=== PATIENT | male | born 1945 | race Caucasian/White ===

== ENCOUNTER 2022-11-12 15:30 | Inpatient (IN) ==
--- NOTE | 2022-11-12 16:12 | Emergency Department Note ---
Impression & Plan Edema of both lower legs, Acute renal insufficiency, Acute hyperkalemia ED Provider Note Name: SHALONDA CALDERON Age: 77 Sex: M Arrives Via: Walk-In Informant: Patient, son ED Provider: Fernando Swann MD Chief Complaint: Leg swelling Impression: As per impressions above Medical Decision Makin-year-old male with history of dyslipidemia, BPH, anxiety/depression though no significant CHF or other history per patient or son. Patient with rapidly worsening leg swelling over the last week. He has pitting weeping edema bilateral lower legs. He is not significantly short of breath denies any chest pain has not had any syncope but is getting short of breath with exertion. Chest x-ray is without infiltrate or significant effusion/pleural effusions. EKG is unremarkable without peaked T waves. He does have a elevated potassium on lab draw in the setting of acute renal insufficiency. Without having significant EKG changes suspect that starting him on Lasix will probably start dropping the potassium while hospitalist further work this up. I do feel that L asix are indicated despite renal insufficiency. He does have a low albumin and this may need to be corrected as well however the initial approach should be getting fluid off. Discussed with hospitalist and they are board with plan. Patient is troponin is only slightly above normal this is consistent with his acute renal insufficiency and without chest pain or EKG abnormalities I do not think this is consistent with ACS Prior Medical Record and Triage/Nursing Notes reviewed by Me External chart review by me Differentials:Fluid overload, DVT, arterial pathology, maln utrition/hypoalbuminemia, anemia, renal failure amongst many other pathologies considered Vital Signs: reviewed and remarkable for mild tachycardia on arrival Interventions: Lasix 40 mg IV Labs:Reviewed and remarkable for evaded potassium, elevated creatinine, low albumin, only slightly elevated troponin Imagin view chest x-ray as per my interpretation no infiltrate, effusion, congestive failure appreciated EKG:As per my interpretation. Indication weakness. Normal sinus rhythm 85 bpm QTc of 433. There is no ectopy nor ischemia. When compared to an EKG of March 09, 2020 there is no significant change. There are no peak T waves Cardiac/Tele Monitoring: Cardiac Monitoring: An Order was placed for continuous cardiac monitoring. The monitor shows a rate of 80 with a normal sinus rhythm. Consults:Italo hodgesist service Plan: Disposition:Hospitalization. Condition: Fair History of Present Illness:77-year-old male arrives for evaluation of worsening leg swelling. Patient with about 5 days of rapid development of bilateral lower leg swelling and weeping out of the right leg. Associated with mild shortness of breath which gets much worse on exertion. Patient is more tired than usual. No current chest pain, nausea, vomiting, abdominal pain, back pain, urinary/bowel symptoms or other concerning signs or symptoms. No history of fluid overload or any history of cardiac disease. Does have a history of simvastatin use for hyperlipidemia as well as daily aspirin. Past History:Dyslipidemia, anxiety/depression, BPH Home Medications:See Below Allergies:No known drug allergies Vitals:Blood Pressure: 115/75, Pulse 107, RR 18, T 36.6C, O2 99% on RA Physical Exam: GENERAL: Patient is tired appearing and in minimal distress. Elderly EYES: No scleral icterus, unremarkable pupils. RESPIRATORY: Mild diffuse crackles mild dyspnea noted CARDIOVASCULAR: Mildly tachycardic.No murmurs, rubs, gallops appreciated. GASTROINTESTINAL: Abdomen soft, non-tender, no peritonitis.Bowel sounds positive.No masses appreciated. BACK: No midline tenderness, no CVA tenderness EXTREMITIES: Normal motion all extremities, no cyanosis. Bilateral lower leg 4+ pitting edema right greater than left from knee down. Significant amount of weeping out of the right leg. Mild erythema NEUROLOGIC: Alert and oriented, very hard of hearing, no gross focal neurologic deficit appreciated SKIN: No rash, no jaundice, no diaphoresis. PSYCH: Appropriate GCS: 15 ED Course: Times/Reassessments: Patient is comfortable with plan for hospitalization as his family Fernando Swann MD Past Med/Surg History Medical History BPH (benign prostatic hyperplasia) CKD (chronic kidney disease), stage III Depression GERD (gastroesophageal reflux disease) HLD (hyperlipidemia) Surgical History Status post hip surgery Family History Other Cancer Social History Smoking Status: Former smoker Tobacco Type: Cigarettes Preferred Language: Occitan Feels Safe at Home: Yes Allergies Allergies Allergy/AdvReac Type Severity Reaction Status Date / Time No Known Allergies Allergy Unverified 11/12/22 18:14 Home Meds Home Medications Medication Instructions Recorded Confirmed aspirin 81 mg tablet,delayed 81 mg PO QAM 03/09/20 11/12/22 release (Paulo Low Dose Aspirin) citalopram 20 mg tablet 20 mg PO QPM 03/09/20 11/12/22 simvastatin 20 mg tablet 20 mg PO QPM 03/09/20 11/12/22 finasteride 5 mg tablet 5 mg PO QPM 11/12/22 11/12/22 fluticasone propionate 110 2 puff inhalation BID PRN as 11/12/22 11/12/22 mcg/actuation HFA aerosol inhaler directed (Flovent HFA) garlic 1,000 mg capsule 1,000 mg PO QAM 11/12/22 11/12/22 meloxicam 7.5 mg tablet 7.5 mg PO HS 11/12/22 11/12/22 pantoprazole 40 mg tablet,delayed 40 mg PO DAILY 11/12/22 11/12/22 release tamsulosin 0.4 mg capsule 0.4 mg PO HS 11/12/22 11/12/22 Results & Data (ED) Vital Signs Vital Signs - 24 hr 11/12/22 15:34 11/12/22 16:13 11/12/22 16:17 Temperature 36.6 C Temperature Source Oral Pulse Rate 107 H 62 87 Pulse Rate [Apical] Respiratory Rate 18 18 Respiratory Effort / Characteristics Non-Labored Spontaneous Respiratory Depth Normal Respiratory Pattern Regular Blood Pressure 115/75 109/73 Blood Pressure [Right Arm] Blood Pressure Mean 88 85 Blood Pressure Mean [Right Arm] Blood Pressure Position Sitting Pulse Oximetry 99 99 Oxygen Delivery Method Room Air Room Air Sepsis Recent Fever Within 48 Hours No Sepsis New/Unexplained Change in Mental Status N/A Sepsis Action Taken by Nursing No Action Required 11/12/22 18:15 Temperature Temperature Source Pulse Rate Pulse Rate [Apical] 96 H Respiratory Rate 18 Respiratory Effort / Characteristics Respiratory Depth Respiratory Pattern Blood Pressure Blood Pressure [Right Arm] 147/80 H Blood Pressure Mean Blood Pressure Mean [Right Arm] 102 Blood Pressure Position Pulse Oximetry 97 Oxygen Delivery Method Room Air Sepsis Recent Fever Within 48 Hours Sepsis New/Unexplained Change in Mental Status Sepsis Action Taken by Nursing Laboratory Data 11/12/22 16:15 11/12/22 16:15 Lab Results 11/12/22 11/12/22 11/12/22 Range/Units 16:00 16:15 16:15 WBC 14.36 H (4.8-10.8) K/ul RBC 4.68 L (4.70-6.10) M/uL Hgb 13.6 L (14.0-18.0) g/dl Hct 40.8 L (42.0-52.0) % MCV 87.2 (80.0-100.0) fL MCH 29.1 (25.0-34.0) pg MCHC 33.3 (32.0-36.0) g/dL RDW Std Deviation 47.4 H (36.4-46.3) fL RDW Coeff of Julius 15.0 H (11.5-14.5) % Plt Count 320 (130-400) K/uL MPV 10.5 (9.4-12.4) fL Immature Gran % (Auto) 0.5 % Neut % (Auto) 90.1 % Lymph % (Auto) 3.2 % [place] % (Auto) 6.1 % Eos % (Auto) 0.0 % Baso % (Auto) 0.1 % Neut # (Auto) 12.94 H (1.40-6.50) K/uL Lymph # (Auto) 0.46 L (1.2-3.4) K/uL [place] # (Auto) 0.88 H (0.11-0.59) K/uL Eos # (Auto) 0.00 (0-0.50) K/uL Baso # (Auto) 0.01 (0-0.2) K/uL Immature Gran # (Auto) 0.07 (0.01-0.20) K/uL Sodium 137 (136-145) mmol/L Potassium 5.8 H (3.5-5.1) mmol/L Chloride 108 H (98-107) mmol/L Carbon Dioxide 24 (21-32) mmol/L Anion Gap 5 (3-11) BUN 42 H (6-23) mg/dl Creatinine 1.95 H (0.6-1.4) mg/dl Est Cr Clr Drug Dosing 32.2 ml/min Est GFR ( Amer) 37.6 ml/min Est GFR (Non-Af Amer) 32.5 ml/min BUN/Creatinine Ratio 21.5 H (10-20) Glucose 108 H (70-99(Fasting)) mg/dl Calcium 9.4 (8.6-10.3) mg/dl Magnesium 2.3 (1.7-2.4) mg/dl Total Bilirubin 0.8 (0.2-1.0) mg/dl Direct Bilirubin 0.0 (0-0.2) mg/dl AST 17 (13-39) U/L ALT 12 (7-52) U/L Alkaline Phosphatase 121 H (34-104) U/L Troponin I High Sens 21.4 H (0-20) pg/ml B-Natriuretic Peptide (0-100) pg/ml Total Protein 6.1 (6.0-8.3) gm/dl Albumin 2.4 L (3.4-5.0) gm/dl Urine Color Urine Appearance (Clear) Urine pH (4.5-7.5) Ur Specific [place] (1.000-1.030) Urine Protein (Negative) Urine Glucose (UA) (Negative) Urine Ketones (Negative) Urine Blood (Negative) Urine Nitrite (Negative) Urine Bilirubin (Negative) Urine Urobilinogen (Negative) Ur Leukocyte Esterase (Negative) SARS-CoV-2 (PCR) NEGATIVE (Negative) Influenza Type A (PCR) Negative (Neg) Influenza Type B (PCR) Negative (Neg) RSV (RT-PCR) Negative (Neg) 11/12/22 11/12/22 Range/Units 16:15 18:39 WBC (4.8-10.8) K/ul RBC (4.70-6.10) M/uL Hgb (14.0-18.0) g/dl Hct (42.0-52.0) % MCV (80.0-100.0) fL MCH (25.0-34.0) pg MCHC (32.0-36.0) g/dL RDW Std Deviation (36.4-46.3) fL RDW Coeff of Julius (11.5-14.5) % Plt Count (130-400) K/uL MPV (9.4-12.4) fL Immature Gran % (Auto) % Neut % (Auto) % Lymph % (Auto) % [place] % (Auto) % Eos % (Auto) % Baso % (Auto) % Neut # (Auto) (1.40-6.50) K/uL Lymph # (Auto) (1.2-3.4) K/uL [place] # (Auto) (0.11-0.59) K/uL Eos # (Auto) (0-0.50) K/uL Baso # (Auto) (0-0.2) K/uL Immature Gran # (Auto) (0.01-0.20) K/uL Sodium (136-145) mmol/L Potassium (3.5-5.1) mmol/L Chloride (98-107) mmol/L Carbon Dioxide (21-32) mmol/L Anion Gap (3-11) BUN (6-23) mg/dl Creatinine (0.6-1.4) mg/dl Est Cr Clr Drug Dosing ml/min Est GFR ( Amer) ml/min Est GFR (Non-Af Amer) ml/min BUN/Creatinine Ratio (10-20) Glucose (70-99(Fasting)) mg/dl Calcium (8.6-10.3) mg/dl Magnesium (1.7-2.4) mg/dl Total Bilirubin (0.2-1.0) mg/dl Direct Bilirubin (0-0.2) mg/dl AST (13-39) U/L ALT (7-52) U/L Alkaline Phosphatase (34-104) U/L Troponin I High Sens (0-20) pg/ml B-Natriuretic Peptide 69 (0-100) pg/ml Total Protein (6.0-8.3) gm/dl Albumin (3.4-5.0) gm/dl Urine Color Dark Yellow Urine Appearance Turbid A (Clear) Urine pH 5.5 (4.5-7.5) Ur Specific [place] 1.026 (1.000-1.030) Urine Protein 4+ H (Negative) Urine Glucose (UA) Negative (Negative) Urine Ketones Trace H (Negative) Urine Blood 1+ H (Negative) Urine Nitrite Negative (Negative) Urine Bilirubin Negative (Negative) Urine Urobilinogen Negative (Negative) Ur Leukocyte Esterase 2+ H (Negative) SARS-CoV-2 (PCR) (Negative) Influenza Type A (PCR) (Neg) Influenza Type B (PCR) (Neg) RSV (RT-PCR) (Neg) Administered Medications Discontinued Medications Furosemide (Furosemide 40 Mg/4 Ml Vial) 40 mg IV ONE ONE Stop: 11/12/22 17:49 Last Admin: 11/12/22 18:18 Dose: 40 mg Documented By: DESTIN Imaging Data Radiologist's Impression: Chest X-Ray 11/12/22 15:53 XR chest 1V portable CLINICAL HISTORY: shortness of breath TECHNIQUE: Single frontal radiograph of the chest was obtained. Comparison: Comparison is made to chest radiograph 11/03/2022 FINDINGS: No lines and tubes are seen. Cardiomegaly is noted. The lungs are clear. No evidence of pleural effusion or pneumothorax. IMPRESSION: Previously noted left lower lung airspace opacity is no longer seen. ACT 112: Negative or not required by law. Electronically signed by: Darek Gray M.D. 11/12/2022 4:44 PM Discharge Plan Visit Data Chief Complaint: Leg Weakness, Bilateral Stated Complaint: LEGS/FEET SWOLLEN, NO STRENGTH IN LEGS ED Provider: Fernando Swann Discharge Problem: Edema of both lower legs, Acute renal insufficiency, Acute hyperkalemia Forms Stand Alone Forms: [facility] Prescriptions Prescriptions: No Action aspirin [Paulo Low Dose Aspirin] 81 mg Tablet,Delayed Release (Dr/Ec) 81 mg PO QAM citalopram 20 mg tablet 20 mg PO QPM simvastatin 20 mg tablet 20 mg PO QPM meloxicam 7.5 mg tablet 7.5 mg PO HS tamsulosin 0.4 mg capsule 0.4 mg PO HS finasteride 5 mg tablet 5 mg PO QPM pantoprazole 40 mg tablet,delayed release (DR/EC) 40 mg PO DAILY fluticasone propionate [Flovent HFA] 110 mcg/actuation HFA aerosol inhaler 2 puff INHALATION BID PRN (Reason: as directed) garlic 1,000 mg Capsule 1,000 mg PO QAM Referrals Referrals: Chani Burrell M.D. [Primary Care Provider] -
--- NOTE | 2022-11-12 16:46 | XRay Report ---
XR chest 1V portable CLINICAL HISTORY: shortness of breath TECHNIQUE: Single frontal radiograph of the chest was obtained. Comparison: Comparison is made to chest radiograph 11/03/2022 FINDINGS: No lines and tubes are seen. Cardiomegaly is noted. The lungs are clear. No evidence of pleural effus ion or pneumothorax. IMPRESSION: Previously noted left lower lung airspace opacity is no longer seen. ACT 112: Negative or not required by law. Electronically signed by: Darek Gray M.D. 11/12/2022 4:44 PM
[2022-11-12 16:51] LABS: Hematocrit (blood only) 40.8 % (42.0-52.0); Hemoglobin 13.6 g/dl (14.0-18.0); Mean Corpuscular Hemoglobin 29.1 pg (25.0-34.0); Mean Corpuscular Hgb Conc 33.3 g/dL (32.0-36.0); Mean Corpuscular Volume 87.2 fL (80.0-100.0); Mean Platelet Volume 10.5 fL (9.4-12.4); Platelet Count 320 K/uL (130-400); RDW Standard Deviation 47.4 fL (36.4-46.3); Red Blood Count 4.68 M/uL (4.70-6.10); White Blood Count 14.36 K/ul (4.8-10.8)
[2022-11-12 16:53] LABS: Influenza A virus by PCR Negative (Neg); Influenza B virus by PCR Negative (Neg); RSV by PCR Negative (Neg); SARS CoV2 RNA(COVID-19) Ceph NEGATIVE (Negative)
[2022-11-12 16:58] LABS: Albumin Level 2.4 gm/dl (3.4-5.0); BUN Creatinine Ratio 21.5 (10-20); Bilirubin,Total 0.8 mg/dl (0.2-1.0); Calcium 9.4 mg/dl (8.6-10.3); Creatinine Clr Calc Pharmacy 32.2 ml/min; Est GFR (African American) 37.6 ml/min; Est GFR (Non-African American) 32.5 ml/min; Magnesium 2.3 mg/dl (1.7-2.4); Potassium 5.8 mmol/L (3.5-5.1); Total Protein 6.1 gm/dl (6.0-8.3)
[2022-11-12 17:04] LABS: Troponin I High Sensitivity 21.4 pg/ml (0-20)
[2022-11-12 17:17] LABS: Basophils # (auto) 0.01 K/uL (0-0.2); Basophils % (auto) 0.1 %; Immature Granulocytes # (auto) 0.07 K/uL (0.01-0.20); Immature Granulocytes % (auto) 0.5 %; Lymphocytes # (auto) 0.46 K/uL (1.2-3.4); Lymphocytes % (auto) 3.2 %; Monocytes # (auto) 0.88 K/uL (0.11-0.59); Monocytes % (auto) 6.1 %; Neutrophils # (auto) 12.94 K/uL (1.40-6.50); Neutrophils % (auto) 90.1 %
[2022-11-12] MEDS ORDERED: FUROSEMIDE 40 MG/4 ML VIAL IV ONE (17:48)
--- NOTE | 2022-11-12 18:59 | History & Physical Report ---
Date of Service November 12, 2022 Assessment & Plan (1) Leg edema: (2) Ambulatory dysfunction: (3) Cellulitis of right leg: (4) IHSAN (acute kidney injury): (5) Elevated troponin: (6) CKD (chronic kidney disease), stage III: (7) BPH (benign prostatic hyperplasia): (8) HLD (hyperlipidemia): (9) Depression: Plan B/L severe LE pitting edema with ambulatory dysfunction: -pt is s/p Lasix 40mg IV in the ER - will determine the next dose depending on the response and change in Cr - CXR: No lines and tubes are seen. Cardiomegaly is noted. The lungs are clear. No evidence of pleural effusion or pneumothorax -will get b/l Doppler -due to cardiomegaly will obtain echo -PT/OT - low albumin: pt denied any chronic ETOH use ---- will repeat CMP RLE cellulitis: -very small amount of erythema with warmth to touch -started the pt on ceftriaxone Elevated trop: -denied any CP -normal BNP -EKG: NSR, no st changes -will trend trop, admit tele ---- with severe LE edema and cardiomegaly will get cardiology consult IHSAN on CKD III: -baseline Cr: ~1.2 -trend BMP -hold home meloxicam dose BPH/Depression/HLD: -continue home meds Diet:Cardiac DVT PPx:Heparin Code Status:FULL CODE Emergency Contact:Son in -Ej [phone] History of Present Illness Chief Complaint: Leg swelling Primary Care Provider: Chani Burrell Pt is a 77 y/o M with hx of BPH, HLD, GERD, Depression, DJD, hearing loss came to the ER with worsening leg swelling with ambulatory dysfunction. Per pt and family leg swelling has been worsening for few weeks and with leg swelling pt is having difficulty with ambulation. Denied any fever, hx of DVT, orthopnea, CP, SOB. Denied any prior hx of CHF and currently does not take any diuretics. Allergies Allergy/AdvReac Type Severity Reaction Status Date / Time No Known Allergies Allergy Unverified 11/12/22 18:14 Home Medications Medication Instructions Recorded Confirmed Type aspirin 81 mg tablet,delayed 81 mg PO QAM 03/09/20 11/12/22 History release (Paulo Low Dose Aspirin) citalopram 20 mg tablet 20 mg PO QPM 07/27/20 04/01/23 History simvastatin 20 mg tablet 20 mg PO QPM 03/09/20 11/12/22 History finasteride 5 mg tablet 5 mg PO QPM 11/12/22 11/12/22 History fluticasone propionate 110 2 puff inhalation BID PRN as 11/12/22 11/12/22 History mcg/actuation HFA aerosol inhaler directed (Flovent HFA) garlic 1,000 mg capsule 1,000 mg PO QAM 11/12/22 11/12/22 History meloxicam 7.5 mg tablet 7.5 mg PO HS 11/12/22 11/12/22 History pantoprazole 40 mg tablet,delayed 40 mg PO DAILY 11/12/22 11/12/22 History release tamsulosin 0.4 mg capsule 0.4 mg PO HS 11/12/22 11/12/22 History Past Med/Surg History Medical History BPH (benign prostatic hyperplasia) CKD (chronic kidney disease), stage III Depression GERD (gastroesophageal reflux disease) HLD (hyperlipidemia) Surgical History Status post hip surgery Family History Other Cancer Social History Smoking Status: Former smoker Tobacco Type: Cigarettes Preferred Language: Danish Feels Safe at Home: Yes Review of Systems Review of Systems: At least 10 Review of systems were reviewed and all negative except as indicated in HPI Physical Exam Physical Exam: General:. NAD, well developed, well nourished, average body habitus HEENT:. Normocephalic and atraumatic, Normal Conjunctiva, EOMI, Sclera is non- icteric Lungs:. No signs of respiratory distress, CTA, no wheezing or crackles Heart:. Normal S1, S2, no murmur Abdominal:. ND, Soft, NT MSK:severe b/l LE pitting edema, RLE: presence of blisters with small area of erythema which was warmth to touch Psych:. AAOx3, normal affect Results & Data Results & Data Vital Signs (Past 12 Hours) Vital Signs Temp Pulse Pulse Resp BP BP Pulse Ox 11/12/22 18:15 96 H 18 147/80 H 97 11/12/22 16:17 87 11/12/22 16:13 62 18 109/73 99 11/12/22 15:34 36.6 C 107 H 18 115/75 99 O2 Del Method 11/12/22 18:15 Room Air 11/12/22 16:17 11/12/22 16:13 Room Air 11/12/22 15:34 Room Air Laboratory Results Short CBC 11/12/22 Range/Units 16:15 WBC 14.36 H (4.8-10.8) K/ul Hgb 13.6 L (14.0-18.0) g/dl Hct 40.8 L (42.0-52.0) % Plt Count 320 (130-400) K/uL BMP 11/12/22 16:15 Sodium 137 Potassium 5.8 H Chloride 108 H Carbon Dioxide 24 BUN 42 H Creatinine 1.95 H Glucose 108 H Calcium 9.4 Liver Function 11/12/22 Range/Units 16:15 Total Bilirubin 0.8 (0.2-1.0) mg/dl Direct Bilirubin 0.0 (0-0.2) mg/dl AST 17 (13-39) U/L ALT 12 (7-52) U/L Alkaline Phosphatase 121 H (34-104) U/L Albumin 2.4 L (3.4-5.0) gm/dl Diagnostic Findings Chest X-Ray 11/12/22 15:53 XR chest 1V portable CLINICAL HISTORY: shortness of breath TECHNIQUE: Single frontal radiograph of the chest was obtained. Comparison: Comparison is made to chest radiograph 11/03/2022 FINDINGS: No lines and tubes are seen. Cardiomegaly is noted. The lungs are clear. No evidence of pleural effusion or pneumothorax. IMPRESSION: Previously noted left lower lung airspace opacity is no longer seen. ACT 112: Negative or not required by law. Electronically signed by: Darek Gray M.D. 11/12/2022 4:44 PM Code Status & VTE Plan VTE Prophylaxis Plan VTE Prophylaxis will be ordered: Yes
[2022-11-12 19:15] LABS: Appearance Urine Turbid (Clear); Bilirubin Urine Negative (Negative); Blood Urine 1+ (Negative); Color Urine Dark Yellow; Epithelial Cell Urine Auto >30 /lpf (0-5); Glucose Urine UA Negative (Negative); Ketones Urine Trace (Negative); Leukocyte Esterase Urine 2+ (Negative); Nitrite Urine Negative (Negative); Protein Urine 4+ (Negative); Specific Gravity Urine 1.026 (1.000-1.030); Urobilinogen Urine Negative (Negative); WBC Urine Automated >30 /hpf (0-5); pH Urine 5.5 (4.5-7.5)
[2022-11-12 19:34] LABS: Bacteria Urine Automated 3+ (Negative); Sperm Urine Present (None Prsent)
[2022-11-12] MEDS ORDERED: HEPARIN SOD 5,000 UNIT/0.5 ML VIAL SQ SCH (21:30)
[2022-11-12] MEDS: CITALOPRAM 20 MG TAB PO SCH (22:08)
[2022-11-12] MEDS: SIMVASTATIN 20 MG TAB PO SCH (22:08)
[2022-11-12] MEDS: TAMSULOSIN HCL 0.4 MG CAP PO SCH (22:08)
[2022-11-12] MEDS: FINASTERIDE 5 MG TAB PO SCH (22:08)
[2022-11-12] MEDS: cefTRIAXone SODIUM 2,000 MG in DEXTROSE 5% 50 ML IV SCH (22:09)
--- NOTE | 2022-11-13 01:23 | Ultrasound Report ---
Exam(s): US VENOUS BILATERAL LOWER EXTREMITIES EXAM: US Duplex Bilateral Lower Extremities Veins CLINICAL HISTORY: Reason for exam: b/l leg swelling. TECHNIQUE: Real-time duplex ultrasound scan of the bilateral lower extremity veins integrating B-mode two-dimensional vascular structure, Doppler spectral analysis, color flow Doppler imaging and compression. COMPARISON: No relevant prior studies available. FINDINGS: Right deep veins: Unremarkable. No DVT in the right common femoral, femoral, proximal deep femoral or popliteal veins. The veins demonstrate normal color flow, are normally compressible, with normal phasic flow and/or augmentation response. Right superficial veins: Unremarkable. No thrombus in the visualized right great saphenous vein. Left deep veins: Unremarkable. No DVT in the left common femoral, femoral, proximal deep femoral or popliteal veins. The veins demonstrate normal color flow, are normally compressible, with normal phasic flow and/or augmentation response. Left superficial veins: Unremarkable. No thrombus in the visualized left great saphenous vein. Soft tissues: No acute findings. No popliteal cyst. IMPRESSION: Normal bilateral lower extremity duplex venous ultrasound. Electronically signed by: Damien Troy MD 11/13/22 01:23 AM
[2022-11-13 04:10] LABS: Hematocrit (blood only) 37.8 % (42.0-52.0); Hemoglobin 12.5 g/dl (14.0-18.0); Mean Corpuscular Hemoglobin 29.2 pg (25.0-34.0); Mean Corpuscular Hgb Conc 33.1 g/dL (32.0-36.0); Mean Corpuscular Volume 88.3 fL (80.0-100.0); Mean Platelet Volume 10.8 fL (9.4-12.4); Platelet Count 270 K/uL (130-400); RDW Standard Deviation 48.3 fL (36.4-46.3); Red Blood Count 4.28 M/uL (4.70-6.10); White Blood Count 10.33 K/ul (4.8-10.8)
[2022-11-13 04:29] LABS: Albumin Globulin Ratio 0.7 (0.9-2); Albumin Level 2.1 gm/dl (3.4-5.0); BUN Creatinine Ratio 25.6 (10-20); Bilirubin,Total 0.4 mg/dl (0.2-1.0); Calcium 8.9 mg/dl (8.6-10.3); Creatinine Clr Calc Pharmacy 32.2 ml/min; Est GFR (African American) 37.6 ml/min; Est GFR (Non-African American) 32.5 ml/min; Globulin 3.2 gm/dl (2.5-4.0); Magnesium 2.2 mg/dl (1.7-2.4); Potassium 5.1 mmol/L (3.5-5.1); Total Protein 5.3 gm/dl (6.0-8.3)
[2022-11-13 05:15] LABS: Basophils # (auto) 0.01 K/uL (0-0.2); Basophils % (auto) 0.1 %; Immature Granulocytes # (auto) 0.02 K/uL (0.01-0.20); Immature Granulocytes % (auto) 0.2 %; Lymphocytes # (auto) 0.45 K/uL (1.2-3.4); Lymphocytes % (auto) 4.4 %; Monocytes # (auto) 0.54 K/uL (0.11-0.59); Monocytes % (auto) 5.2 %; Neutrophils # (auto) 9.31 K/uL (1.40-6.50); Neutrophils % (auto) 90.1 %
--- NOTE | 2022-11-13 07:49 | Hospitalist Progress Note ---
Date of Service November 13, 2022 Assessment & Plan (1) Cellulitis of right leg: (2) Leg DVT (deep venous thromboembolism), chronic: Plan: Patient received Lasix yesterday, however, creatinine is 1.9 today. Will hold and given 1 bag of IVF to see if this can improve. He doesnt appear hypervolemic at all and per there has been no clear respiratory symptoms at home or exercise intolerance. His swelling is likely related to the chronic appearing blood clot in his RLE. Per new history from this was likely provoked after an ankle/him surgery where he had some immobilization a few years back. Will add TEDs and cont abx for the swelling and pain at this time. He initially appeared to have some increased respiratory effort so there was a natural concern for PE. Will cont to watch him overnight at this point and continue heparin drip for the time being. Will discuss pros/cons of anticoagulation in this patient moving forward with hematology. (3) IHSAN (acute kidney injury): Plan: Elevated creatinine 1.9 with baseline 1.2. Cont with some IVF overnight and repeat in am. He did receive some Lasix for leg swelling yesteray which may be contributing. Hold mobic. (4) Elevated troponin: Plan: Likely related to renal function decline and no further cardiac workup is needed at this point. (5) BPH (benign prostatic hyperplasia): Plan: chronic, stable. Cont tamsulosin and finasteride per home regimen. (6) HLD (hyperlipidemia): Plan: chronic, stable. Cont simvastatin per home regimen. (7) Ambulatory dysfunction: Plan: chronic, described as impulsive with movements by . Ambulates with a walker at his baseline. Await PT/OT recommendations. Notably, works nights and they spend very little time together during the days so he is mostly alone. (8) Depression: Plan: chronic, stable. Cont citalopram per home regimen. Heparin drip Full Code Dispo-per PT/OT recs. Linn Victor DO [facility] Hospitalist Admission and Anticipated Discharge Date Admission Date: November 12, 2022 Subjective 77 yo M with multiple comorbidities brought in by his who is an RN for a small wound on his RLE that was draining with increased redness spreading up the medial calf, swelling of the RLE and pain in the RLE. Chronic DVT was seen on RLE us. was a poor historian and didn't think he ever had a VTE in the past. This afternoon I was able to go back and speak with his who reports that this blood clot was never proven, but that he gets swelling of the lower extremity intermittently since that time of ankle and hip surgery a few years back. So it seems not surprising that the chronic appearing blood clot is there and will add MICKY hose at this time. For now, heparin was added out of an abundance of caution, however, he ambulates with a walker at home and is described as "impulsive" with his movements by his . He is certainly a fall risk and anticoagulation is not ideal if not absolutely needed. Review of Systems Review of Systems: All systems were reviewed and negative except as indicated on HPI above. Physical Exam Physical Exam: CONSTITUTIONAL: WNWD, vitals as above, generally well-appearing EYES: normal conjunctivae, no scleral icterus ENT: external ear and nose normal, MMM NECK: trachea midline RESPIRATORY: clear to auscultation bilaterally, no crackles, rales or wheezes, slightly increased respiratory effort without hypoxia. CARDIOVASCULAR: regular rate and rhythm, S1 and 2 heard without murmurs, gallops or rubs, no JVD, no edema but bilateral lower extremities are swollen. CHEST: inspection of chest was normal GASTROINTESTINAL: soft, nontender, ND, no guarding MUSCULOSKELETAL: strength 5/5 throughout, head is normocephalic and atraumatic SKIN: warm and dry, he has a very small (less than dime-sized) opening on the medial RLE that is not draining with a very clear red line of demarcation just below this and extending proximally for just a few centimeters. There is no purlent drainage. NEUROLOGIC: CN 2-12 grossly intact, no sensory deficit, normal cognition, normal speech, no tremor PSYCHIATRIC: alert cooperative and oriented to person, place and time. Results & Data Results & Data Vital Signs (Past 12 Hours) Vital Signs Temp Pulse Pulse Resp BP BP Pulse Ox 11/12/22 21:33 119 H 11/12/22 21:05 11/12/22 21:05 36.7 C 119 H 18 120/64 92 11/13/22 03:44 37.6 C H 107 H 18 118/56 L 95 11/12/22 23:26 37.0 C 110 H 20 111/71 94 11/12/22 21:03 36.7 C 119 H 18 120/64 92 11/12/22 20:00 99 H 11/12/22 19:50 100 H O2 Del Method 11/12/22 21:33 11/12/22 21:05 Room Air 11/12/22 21:05 Room Air 11/13/22 03:44 Room Air 11/12/22 23:26 Room Air 11/12/22 21:03 Room Air 11/12/22 20:00 11/12/22 19:50 Laboratory Results Short CBC 11/12/22 11/13/22 Range/Units 16:15 03:36 WBC 14.36 H 10.33 (4.8-10.8) K/ul Hgb 13.6 L 12.5 L (14.0-18.0) g/dl Hct 40.8 L 37.8 L (42.0-52.0) % Plt Count 320 270 (130-400) K/uL BMP 11/12/22 11/13/22 16:15 03:36 Sodium 137 136 Potassium 5.8 H 5.1 Chloride 108 H 108 H Carbon Dioxide 24 25 BUN 42 H 50 H Creatinine 1.95 H 1.95 H Glucose 108 H 105 H Calcium 9.4 8.9 Liver Function 11/12/22 11/13/22 Range/Units 16:15 03:36 Total Bilirubin 0.8 0.4 (0.2-1.0) mg/dl Direct Bilirubin 0.0 (0-0.2) mg/dl AST 17 14 (13-39) U/L ALT 12 10 (7-52) U/L Alkaline Phosphatase 121 H 100 (34-104) U/L Albumin 2.4 L 2.1 L (3.4-5.0) gm/dl Urine 11/12/22 Range/Units 18:39 Urine Color Dark Yellow Urine Appearance Turbid A (Clear) Urine pH 5.5 (4.5-7.5) Ur Specific [place] 1.026 (1.000-1.030) Urine Protein 4+ H (Negative) Urine Glucose (UA) Negative (Negative) Diagnostic Findings Venous Doppler Study 11/12/22 21:05 Exam(s): US VENOUS BILATERAL LOWER EXTREMITIES EXAM: US Duplex Bilateral Lower Extremities Veins CLINICAL HISTORY: Reason for exam: b/l leg swelling. TECHNIQUE: Real-time duplex ultrasound scan of the bilateral lower extremity veins integrating B-mode two-dimensional vascular structure, Doppler spectral analysis, color flow Doppler imaging and compression. COMPARISON: No relevant prior studies available. FINDINGS: Right deep veins: Unremarkable. No DVT in the right common femoral, femoral, proximal deep femoral or popliteal veins. The veins demonstrate normal color flow, are normally compressible, with normal phasic flow and/or augmentation response. Right superficial veins: Unremarkable. No thrombus in the visualized right great saphenous vein. Left deep veins: Unremarkable. No DVT in the left common femoral, femoral, proximal deep femoral or popliteal veins. The veins demonstrate normal color flow, are normally compressible, with normal phasic flow and/or augmentation response. Left superficial veins: Unremarkable. No thrombus in the visualized left great saphenous vein. Soft tissues: No acute findings. No popliteal cyst. IMPRESSION: Normal bilateral lower extremity duplex venous ultrasound. Electronically signed by: Damien Troy MD 11/13/22 01:23 AM Medications Administered Current Inpatient Medications Aspirin (Aspirin 81 Mg Ectab) 81 mg PO QAM [facility] Stop: 12/13/22 08:59 Citalopram Hydrobromide (Citalopram 20 Mg Tab) 20 mg PO QPM [facility] Stop: 12/12/22 21:04 Last Admin: 11/12/22 22:08 Dose: 20 mg Finasteride (Finasteride 5 Mg Tab) 5 mg PO QPM FEL[facility] Stop: 12/12/22 21:04 Last Admin: 11/12/22 22:08 Dose: 5 mg Heparin Sodium (Porcine) (Heparin Sod (Porcine) 1000 Unit/Ml) 1 units IV NOW ONE Stop: 11/13/22 07:57 Heparin Sodium/Dextrose (Heparin Iv Adult Wt-Based Standard With Bolus Protocol) 1 each IV NOW STA; Protocol Stop: 11/13/22 07:41 Ceftriaxone Sodium 2,000 mg/ (Dextrose) 70 mls @ 100 mls/hr IV Q24H [facility]; Protocol Stop: 11/19/22 21:29 Last Infusion: 11/13/22 01:43 Dose: Infused Heparin Sodium/Dextrose (Heparin Sodium/Dextrose) 25,000 units in 500 mls @ 0.02 mls/hr IV .Q24H [facility]; Protocol Stop: 12/13/22 07:59 Pantoprazole Sodium (Pantoprazole 40 Mg Tab) 40 mg PO DAILY F[facility]ERT[facility] Stop: 12/13/22 08:59 Simvastatin (Simvastatin 20 Mg Tab) 20 mg PO QPM [facility] Stop: 12/12/22 21:04 Last Admin: 11/12/22 22:08 Dose: 20 mg Tamsulosin HCl (Tamsulosin Hcl 0.4 Mg Cap) 0.4 mg PO HS [facility] Stop: 12/12/22 21:04 Last Admin: 11/12/22 22:08 Dose: 0.4 mg
[2022-11-13] MEDS ORDERED: Heparin IV Adult Wt-Based Standard WITH Bolus Protocol IV STA (07:50)
[2022-11-13] MEDS ORDERED: HEPARIN SOD (PORCINE) 1000 UNIT/ML IV ONE (08:30)
--- NOTE | 2022-11-13 08:35 | Electrocardiogram Report ---
Test Reason : Blood Pressure : / mmHG Vent. Rate : 085 BPM Atrial Rate : 085 BPM P-R Int : 142 ms QRS Dur : 086 ms QT Int : 364 ms P-R-T Axes : 055 046 053 degrees QTc Int : 433 ms Normal sinus rhythm Normal ECG When compared with ECG of 09-MAR-2020 15:49, Premature atrial complexes are no longer Present Confirmed by Dru Ovalle ([id number]) on 11/13/2022 8:35:17 AM Referred By: REFERRED SELF Confirmed By:Dru Ovalle
[2022-11-13 09:12] LABS: INR 1.2 (0.9-1.1); Partial Thromboplastin Ratio 1.7; Prothrombin Time 12.5 Seconds (9.0-12.0)
[2022-11-13] MEDS: HEPARIN SODIUM/DEXTROSE 25,000 UNITS/500 ML BAG IV SCH (09:31)
[2022-11-13 09:35] LABS: Partial Thromboplastin Time 45.7 Seconds (21.0-31.0)
[2022-11-13] MEDS: PANTOprazole 40 MG TAB PO SCH (09:35)
[2022-11-13] MEDS: ASPIRIN 81 MG ECTAB PO SCH (09:35)
--- NOTE | 2022-11-13 10:47 | Cardiology Consultation ---
Date of Consultation November 13, 2022 Assessment & Plan (1) Edema of both lower legs: (2) Ambulatory dysfunction: (3) Elevated troponin: (4) CKD (chronic kidney disease), stage III: Plan I will review the echocardiogram when completed however, I do not believe the cardiology is going to add much to the patient care. The patient has been started on heparin with evidence of chronic DVT of the lower extremity. Small bump in cardiac troponins due to renal insufficiency. History of Present Illness Attending Physician: Linn Victor DO History of Present Illness This is a 77-year-old male patient who is hard of hearing and cannot provide any significant history. The information is taken from the medical record both inpatient and through [facility]. 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 No significant cardiac history. No complaints of chest pain or shortness of breath on admission. After admission he has evidence of a chronic DVT which has not unexpected considering the patient's history. Allergies Allergy/AdvReac Type Severity Reaction Status Date / Time No Known Allergies Allergy Unverified 11/12/22 18:14 Home Medications Medication Instructions Recorded Confirmed Type aspirin 81 mg tablet,delayed 81 mg PO QAM 03/09/20 11/12/22 History release (Paulo Low Dose Aspirin) citalopram 20 mg tablet 20 mg PO QPM 03/09/20 11/12/22 History simvastatin 20 mg tablet 20 mg PO QPM 03/09/20 11/12/22 History finasteride 5 mg tablet 5 mg PO QPM 11/12/22 11/12/22 History fluticasone propionate 110 2 puff inhalation BID PRN as 11/12/22 11/12/22 History mcg/actuation HFA aerosol inhaler directed (Flovent HFA) garlic 1,000 mg capsule 1,000 mg PO QAM 11/12/22 11/12/22 History meloxicam 7.5 mg tablet 7.5 mg PO HS 11/12/22 11/12/22 History pantoprazole 40 mg tablet,delayed 40 mg PO DAILY 11/12/22 11/12/22 History release tamsulosin 0.4 mg capsule 0.4 mg PO HS 11/12/22 11/12/22 History Patient History Medical History BPH (benign prostatic hyperplasia) CKD (chronic kidney disease), stage III Depression GERD (gastroesophageal reflux disease) HLD (hyperlipidemia) Surgical History Status post hip surgery Family History Other Cancer Social History Smoking Status: Former smoker Tobacco Type: Cigarettes Tobacco Cessation Education Requested by Patient: No Hx Alcohol Use: No Hx Substance Use: No Preferred Language: Slovak Communication Ability: Effective Director Records Management Required: No Beliefs That Will Affect Care: None Current Living Situation: Spouse and Family Other Information That Helps Us Care for You: No Feels Safe at Home: Yes Safety Concerns: Feels Safe At This Time Assistive Devices: Denture - Upper, Denture - Lower, Glasses and Walker Review of Systems Review of Systems: Not obtainable Physical Exam Physical Exam: General: Resting and in no acute distress Head: normocephalic, no masses, lesions, tenderness or abnormalities Eyes: Eyes closed Neck: supple, no adenopathy, no bruits, normal jugular venous pulse, no hepatojugular reflux Chest: normal shape and normal respiratory effort Lungs: clear to auscultation and percussion Cardiac Exam: - regular rate & rhythm, no murmurs gallops or rubs - normal S1, normal S2 Pulses: 2(+) throughout Abdomen: abdomen soft, non-tender, no abnormal masses and no hepatosplenomegaly Musculoskeletal: Upper extremities appear to be normal Extremities: Edema and obvious disuse atrophy of the lower extremities Neuro: grossly normal exam Results & Data Vital Signs (Past 12 Hours) Vital Signs Temp Pulse Pulse Resp BP BP Pulse Ox 11/13/22 08:08 37.5 C 109 H 16 124/71 93 11/13/22 07:55 122 H 11/13/22 03:44 37.6 C H 107 H 18 118/56 L 95 11/12/22 23:26 37.0 C 110 H 20 111/71 94 O2 Del Method 11/13/22 08:08 Room Air 11/13/22 07:55 11/13/22 03:44 Room Air 11/12/22 23:26 Room Air Laboratory Results Laboratory Results - last 24 hr 11/12/22 11/12/22 11/12/22 16:00 16:15 16:15 WBC 14.36 H RBC 4.68 L Hgb 13.6 L Hct 40.8 L MCV 87.2 MCH 29.1 MCHC 33.3 RDW Std Deviation 47.4 H RDW Coeff of Julius 15.0 H Plt Count 320 MPV 10.5 Immature Gran % (Auto) 0.5 Neut % (Auto) 90.1 Lymph % (Auto) 3.2 Reagan % (Auto) 6.1 Eos % (Auto) 0.0 Baso % (Auto) 0.1 Neut # (Auto) 12.94 H Lymph # (Auto) 0.46 L Reagan # (Auto) 0.88 H Eos # (Auto) 0.00 Baso # (Auto) 0.01 Immature Gran # (Auto) 0.07 PT INR APTT PTT Ratio Sodium 137 Potassium 5.8 H Chloride 108 H Carbon Dioxide 24 Anion Gap 5 BUN 42 H Creatinine 1.95 H Est Cr Clr Drug Dosing 32.2 Est GFR ( Amer) 37.6 Est GFR (Non-Af Amer) 32.5 BUN/Creatinine Ratio 21.5 H Glucose 108 H Estimat Average Glucose Hemoglobin A1c Calcium 9.4 Magnesium 2.3 Total Bilirubin 0.8 Direct Bilirubin 0.0 AST 17 ALT 12 Alkaline Phosphatase 121 H Troponin I High Sens 21.4 H B-Natriuretic Peptide Total Protein 6.1 Albumin 2.4 L Globulin Albumin/Globulin Ratio Urine Color Urine Appearance Urine pH Ur Specific [place] Urine Protein Urine Glucose (UA) Urine Ketones Urine Blood Urine Nitrite Urine Bilirubin Urine Urobilinogen Ur Leukocyte Esterase Urine WBC (Auto) Urine RBC (Auto) U Hyaline Cast (Auto) U Epithel Cells (Auto) Urine Bacteria (Auto) Urine Yeast Urine Sperm SARS-CoV-2 (PCR) NEGATIVE Influenza Type A (PCR) Negative Influenza Type B (PCR) Negative RSV (RT-PCR) Negative 11/12/22 11/12/22 11/12/22 16:15 18:39 22:52 WBC RBC Hgb Hct MCV MCH MCHC RDW Std Deviation RDW Coeff of Julius Plt Count MPV Immature Gran % (Auto) Neut % (Auto) Lymph % (Auto) Reagan % (Auto) Eos % (Auto) Baso % (Auto) Neut # (Auto) Lymph # (Auto) Reagan # (Auto) Eos # (Auto) Baso # (Auto) Immature Gran # (Auto) PT INR APTT PTT Ratio Sodium Potassium Chloride Carbon Dioxide Anion Gap BUN Creatinine Est Cr Clr Drug Dosing Est GFR ( Amer) Est GFR (Non-Af Amer) BUN/Creatinine Ratio Glucose Estimat Average Glucose Hemoglobin A1c Calcium Magnesium Total Bilirubin Direct Bilirubin AST ALT Alkaline Phosphatase Troponin I High Sens 20.8 H B-Natriuretic Peptide 69 Total Protein Albumin Globulin Albumin/Globulin Ratio Urine Color Dark Yellow Urine Appearance Turbid A Urine pH 5.5 Ur Specific [place] 1.026 Urine Protein 4+ H Urine Glucose (UA) Negative Urine Ketones Trace H Urine Blood 1+ H Urine Nitrite Negative Urine Bilirubin Negative Urine Urobilinogen Negative Ur Leukocyte Esterase 2+ H Urine WBC (Auto) >30 H Urine RBC (Auto) 5-10 H U Hyaline Cast (Auto) 5-10 H U Epithel Cells (Auto) >30 H Urine Bacteria (Auto) 3+ H Urine Yeast Not Reportable Urine Sperm Present A SARS-CoV-2 (PCR) Influenza Type A (PCR) Influenza Type B (PCR) RSV (RT-PCR) 11/13/22 11/13/22 11/13/22 03:36 03:36 03:36 WBC 10.33 RBC 4.28 L Hgb 12.5 L Hct 37.8 L MCV 88.3 MCH 29.2 MCHC 33.1 RDW Std Deviation 48.3 H RDW Coeff of Julius 15.0 H Plt Count 270 MPV 10.8 Immature Gran % (Auto) 0.2 Neut % (Auto) 90.1 Lymph % (Auto) 4.4 Reagan % (Auto) 5.2 Eos % (Auto) 0.0 Baso % (Auto) 0.1 Neut # (Auto) 9.31 H Lymph # (Auto) 0.45 L Reagan # (Auto) 0.54 Eos # (Auto) 0.00 Baso # (Auto) 0.01 Immature Gran # (Auto) 0.02 PT INR APTT PTT Ratio Sodium 136 Potassium 5.1 Chloride 108 H Carbon Dioxide 25 Anion Gap 3 BUN 50 H Creatinine 1.95 H Est Cr Clr Drug Dosing 32.2 Est GFR ( Amer) 37.6 Est GFR (Non-Af Amer) 32.5 BUN/Creatinine Ratio 25.6 H Glucose 105 H Estimat Average Glucose Hemoglobin A1c Calcium 8.9 Magnesium 2.2 Total Bilirubin 0.4 Direct Bilirubin AST 14 ALT 10 Alkaline Phosphatase 100 Troponin I High Sens 25.5 H B-Natriuretic Peptide Total Protein 5.3 L Albumin 2.1 L Globulin 3.2 Albumin/Globulin Ratio 0.7 L Urine Color Urine Appearance Urine pH Ur Specific [place] Urine Protein Urine Glucose (UA) Urine Ketones Urine Blood Urine Nitrite Urine Bilirubin Urine Urobilinogen Ur Leukocyte Esterase Urine WBC (Auto) Urine RBC (Auto) U Hyaline Cast (Auto) U Epithel Cells (Auto) Urine Bacteria (Auto) Urine Yeast Urine Sperm SARS-CoV-2 (PCR) Influenza Type A (PCR) Influenza Type B (PCR) RSV (RT-PCR) 11/13/22 11/13/22 03:36 08:15 WBC RBC Hgb Hct MCV MCH MCHC RDW Std Deviation RDW Coeff of Julius Plt Count MPV Immature Gran % (Auto) Neut % (Auto) Lymph % (Auto) Reagan % (Auto) Eos % (Auto) Baso % (Auto) Neut # (Auto) Lymph # (Auto) Reagan # (Auto) Eos # (Auto) Baso # (Auto) Immature Gran # (Auto) PT 12.5 H INR 1.2 H APTT 45.7 H* PTT Ratio 1.7 Sodium Potassium Chloride Carbon Dioxide Anion Gap BUN Creatinine Est Cr Clr Drug Dosing Est GFR ( Amer) Est GFR (Non-Af Amer) BUN/Creatinine Ratio Glucose Estimat Average Glucose Pending Hemoglobin A1c Pending Calcium Magnesium Total Bilirubin Direct Bilirubin AST ALT Alkaline Phosphatase Troponin I High Sens B-Natriuretic Peptide Total Protein Albumin Globulin Albumin/Globulin Ratio Urine Color Urine Appearance Urine pH Ur Specific [place] Urine Protein Urine Glucose (UA) Urine Ketones Urine Blood Urine Nitrite Urine Bilirubin Urine Urobilinogen Ur Leukocyte Esterase Urine WBC (Auto) Urine RBC (Auto) U Hyaline Cast (Auto) U Epithel Cells (Auto) Urine Bacteria (Auto) Urine Yeast Urine Sperm SARS-CoV-2 (PCR) Influenza Type A (PCR) Influenza Type B (PCR) RSV (RT-PCR) Medications Administered Current Inpatient Medications Aspirin (Aspirin 81 Mg Ectab) 81 mg PO QAM [facility] Stop: 12/13/22 08:59 Last Admin: 11/13/22 09:35 Dose: 81 mg Citalopram Hydrobromide (Citalopram 20 Mg Tab) 20 mg PO QPM [facility] Stop: 12/12/22 21:04 Last Admin: 11/12/22 22:08 Dose: 20 mg Finasteride (Finasteride 5 Mg Tab) 5 mg PO QPM [facility] Stop: 12/12/22 21:04 Last Admin: 11/12/22 22:08 Dose: 5 mg Ceftriaxone Sodium 2,000 mg/ (Dextrose) 70 mls @ 100 mls/hr IV Q24H [facility]; Protocol Stop: 11/19/22 21:29 Last Infusion: 11/13/22 01:43 Dose: Infused Heparin Sodium/Dextrose (Heparin Sodium/Dextrose) 25,000 units in 500 mls @ 26 mls/hr IV .[id number] [facility]; Protocol Stop: 12/13/22 07:59 Last Admin: 11/13/22 09:31 Dose: 1,300 units/hr, 26 mls/hr Pantoprazole Sodium (Pantoprazole 40 Mg Tab) 40 mg PO DAILY [facility]ERTO Stop: 12/13/22 08:59 Last Admin: 11/13/22 09:35 Dose: 40 mg Simvastatin (Simvastatin 20 Mg Tab) 20 mg PO QPM [facility] Stop: 12/12/22 21:04 Last Admin: 11/12/22 22:08 Dose: 20 mg Tamsulosin HCl (Tamsulosin Hcl 0.4 Mg Cap) 0.4 mg PO HS [facility] Stop: 12/12/22 21:04 Last Admin: 11/12/22 22:08 Dose: 0.4 mg
[2022-11-13] MEDS ORDERED: SODIUM CHLORIDE 0.9% 1000ML 1,000 ML IV SCH (17:00)
[2022-11-13 17:32] LABS: Partial Thromboplastin Ratio > 5.1
[2022-11-13 17:48] LABS: Partial Thromboplastin Time > 139.0 Seconds (21.0-31.0)
[2022-11-13 20:14] LABS: Partial Thromboplastin Ratio 3.1
[2022-11-13] MEDS: CITALOPRAM 20 MG TAB PO SCH (20:17)
[2022-11-13] MEDS: SIMVASTATIN 20 MG TAB PO SCH (20:17)
[2022-11-13] MEDS: FINASTERIDE 5 MG TAB PO SCH (20:18)
[2022-11-13] MEDS: TAMSULOSIN HCL 0.4 MG CAP PO SCH (20:18)
[2022-11-13] MEDS: cefTRIAXone SODIUM 2,000 MG in DEXTROSE 5% 50 ML IV SCH (20:21)
[2022-11-14 03:02] LABS: Hematocrit (blood only) 28.9 % (42.0-52.0); Hemoglobin 9.8 g/dl (14.0-18.0); Mean Corpuscular Hemoglobin 29.6 pg (25.0-34.0); Mean Corpuscular Hgb Conc 33.9 g/dL (32.0-36.0); Mean Corpuscular Volume 87.3 fL (80.0-100.0); Platelet Count 239 K/uL (130-400); RDW Coefficient of Variation 14.7 % (11.5-14.5); RDW Standard Deviation 47.1 fL (36.4-46.3); Red Blood Count 3.31 M/uL (4.70-6.10); White Blood Count 7.52 K/ul (4.8-10.8)
[2022-11-14 03:18] LABS: BUN Creatinine Ratio 29.7 (10-20); Calcium 8.2 mg/dl (8.6-10.3); Creatinine Clr Calc Pharmacy 32.9 ml/min; Est GFR (African American) 40.1 ml/min; Est GFR (Non-African American) 34.6 ml/min; Potassium 4.5 mmol/L (3.5-5.1)
[2022-11-14 03:42] LABS: Partial Thromboplastin Time 56.2 Seconds (21.0-31.0)
[2022-11-14] MEDS: PANTOprazole 40 MG TAB PO SCH (07:30)
[2022-11-14] MEDS: ASPIRIN 81 MG ECTAB PO SCH (07:30)
[2022-11-14 07:53] LABS: Estimated Average Glucose 123 mg/dl; Hemoglobin A1C 5.9 % (4.5-5.6)
[2022-11-14] MEDS: HEPARIN SODIUM/DEXTROSE 25,000 UNITS/500 ML BAG IV SCH (09:15)
--- NOTE | 2022-11-14 10:01 | Hospitalist Progress Note ---
Date of Service November 14, 2022 Assessment & Plan (1) Cellulitis of right leg: (2) Leg DVT (deep venous thromboembolism), chronic: Plan: Chronic, h/o provoked DVT in 2020. Will stop anticoagulation at this time. Low risk for PE. Cont TEDS and abx. Poor candidate for AC anyway as he is a fall risk and already bumps into things per . (3) IHSAN (acute kidney injury): Plan: Elevated creatinine 1.9 with baseline 1.2 (from 2 years ago--nothing recent--1.9 may be new baseline). Cont holding Mobic and Lasix. No IVF. (4) Elevated troponin: Plan: Likely related to renal disease decline and no further cardiac workup is needed at this point. (5) BPH (benign prostatic hyperplasia): Plan: chronic, stable. Cont tamsulosin and finasteride per home regimen. (6) HLD (hyperlipidemia): Plan: chronic, stable. Cont simvastatin per home regimen. (7) Ambulatory dysfunction: Plan: chronic, described as impulsive with movements by . Ambulates with a walker at his baseline. Notably, works nights and they spend very little time together during the days so he is mostly alone. SNF recommended by therapy. (8) Depression: Plan: chronic, stable. Cont citalopram per home regimen. Heparin drip Full Code Dispo-per PT/OT recs. DO [facility] Admission and Anticipated Discharge Date Admission Date: November 12, 2022 Subjective 77 yo M with multiple comorbidities brought in by his who is an RN for a small wound on his RLE that was draining with increased redness spreading up the medial calf, swelling of the RLE and pain in the RLE. Chronic DVT was seen on RLE us. RLE cellulitis improved-patient has TEDS on Denies pain in his leg Denies chest pain, SOB or other issues. Respiratory effort is normal today PT recommending SNF, discussed with Stopping heparin now, discussed why no chest CT with . Now with findings of a new UTI, but patient denies UTI symptoms. Wief reports he was somewhat less stable, weaker recently Review of Systems Review of Systems: All systems were reviewed and negative except as indicated on HPI above. Physical Exam Physical Exam: CONSTITUTIONAL: WNWD, vitals as above, generally well-appearing EYES: normal conjunctivae, no scleral icterus ENT: external ear and nose normal, MMM NECK: trachea midline RESPIRATORY: clear to auscultation bilaterally, no crackles, rales or wheezes, slightly increased respiratory effort without hypoxia. CARDIOVASCULAR: regular rate and rhythm, S1 and 2 heard without murmurs, gallops or rubs, no JVD, no edema but bilateral lower extremities are swollen. CHEST: inspection of chest was normal GASTROINTESTINAL: soft, nontender, ND, no guarding MUSCULOSKELETAL: strength 5/5 throughout, head is normocephalic and atraumatic SKIN: warm and dry, he has a very small (less than dime-sized) opening on the medial RLE that is not draining with a very clear red line of demarcation just below this and erythema improved. NEUROLOGIC: CN 2-12 grossly intact, no sensory deficit, normal cognition, normal speech, no tremor PSYCHIATRIC: alert cooperative and oriented to person, place and time. Results & Data Results & Data Vital Signs (Past 12 Hours) Vital Signs Temp Pulse Pulse Resp BP BP Pulse Ox 11/14/22 08:50 100 H 11/14/22 08:02 36.9 C 98 H 18 119/59 L 93 11/14/22 07:14 11/14/22 02:30 37.5 C 97 H 18 108/46 L 92 11/13/22 23:10 36.3 C L 96 H 18 125/55 L 93 11/13/22 22:58 107 H O2 Del Method 11/14/22 08:50 11/14/22 08:02 Room Air 11/14/22 07:14 Room Air 11/14/22 02:30 Room Air 11/13/22 23:10 Room Air 11/13/22 22:58 Laboratory Results Short CBC 11/14/22 Range/Units 02:35 WBC 7.52 (4.8-10.8) K/ul Hgb 9.8 L (14.0-18.0) g/dl Hct 28.9 L (42.0-52.0) % Plt Count 239 (130-400) K/uL BMP 11/14/22 02:35 Sodium 133 L Potassium 4.5 Chloride 107 Carbon Dioxide 22 BUN 55 H Creatinine 1.85 H Glucose 99 Calcium 8.2 L Medications Administered Current Inpatient Medications Aspirin (Aspirin 81 Mg Ectab) 81 mg PO QAM [facility] Stop: 05/02/23 08:59 Last Admin: 11/14/22 07:30 Dose: 81 mg Citalopram Hydrobromide (Citalopram 20 Mg Tab) 20 mg PO QPM [facility] Stop: 12/12/22 21:04 Last Admin: 11/13/22 20:17 Dose: 20 mg Finasteride (Finasteride 5 Mg Tab) 5 mg PO QPM [facility] Stop: 12/12/22 21:04 Last Admin: 11/13/22 20:18 Dose: 5 mg Heparin Sodium/Dextrose (Heparin Sodium/Dextrose) 25,000 units in 500 mls @ 19 mls/hr IV .Q24H [facility]; Protocol Stop: 12/13/22 07:59 Last Admin: 11/14/22 09:15 Dose: 950 units/hr, 19 mls/hr Ampicillin Sodium 1,000 mg/ (Sodium Chloride) 50 mls @ 100 mls/hr IV Q8H [facility] Stop: 11/24/22 09:59 Pantoprazole Sodium (Pantoprazole 40 Mg Tab) 40 mg PO DAILY [facility]ERTO Stop: 12/13/22 08:59 Last Admin: 11/14/22 07:30 Dose: 40 mg Simvastatin (Simvastatin 20 Mg Tab) 20 mg PO QPM [facility] Stop: 12/12/22 21:04 Last Admin: 11/13/22 20:17 Dose: 20 mg Tamsulosin HCl (Tamsulosin Hcl 0.4 Mg Cap) 0.4 mg PO HS [facility] Stop: 12/12/22 21:04 Last Admin: 11/13/22 20:18 Dose: 0.4 mg
[2022-11-14] MEDS: AMPICILLIN 1,000 MG in SODIUM CHLOR 0.9% AD-VAN 50 ML IV SCH ×2 (11:06→18:02)
[2022-11-14] MEDS: HEPARIN SOD 5,000 UNIT/0.5 ML VIAL SQ SCH ×2 (15:29→20:21)
[2022-11-14] MEDS: SIMVASTATIN 20 MG TAB PO SCH (20:21)
[2022-11-14] MEDS: TAMSULOSIN HCL 0.4 MG CAP PO SCH (20:21)
[2022-11-14] MEDS: CITALOPRAM 20 MG TAB PO SCH (20:21)
[2022-11-14] MEDS: FINASTERIDE 5 MG TAB PO SCH (20:21)
[2022-11-15] MEDS: AMPICILLIN 1,000 MG in SODIUM CHLOR 0.9% AD-VAN 50 ML IV SCH ×2 (02:19→09:30)
[2022-11-15] MEDS: HEPARIN SOD 5,000 UNIT/0.5 ML VIAL SQ SCH ×3 (05:31→20:06)
[2022-11-15 07:18] LABS: Basophils # (auto) 0.01 K/uL (0-0.2); Basophils % (auto) 0.2 %; Eosinophils # (auto) 0.15 K/uL (0-0.50); Eosinophils % (auto) 2.6 %; Hematocrit (blood only) 30.7 % (42.0-52.0); Hemoglobin 10.3 g/dl (14.0-18.0); Immature Granulocytes # (auto) 0.04 K/uL (0.01-0.20); Immature Granulocytes % (auto) 0.7 %; Lymphocytes # (auto) 0.54 K/uL (1.2-3.4); Lymphocytes % (auto) 9.4 %; Mean Corpuscular Hemoglobin 28.9 pg (25.0-34.0); Mean Corpuscular Hgb Conc 33.6 g/dL (32.0-36.0); Mean Platelet Volume 10.5 fL (9.4-12.4); Monocytes # (auto) 0.69 K/uL (0.11-0.59); Neutrophils # (auto) 4.31 K/uL (1.40-6.50); Neutrophils % (auto) 75.1 %; Platelet Count 252 K/uL (130-400); RDW Coefficient of Variation 14.2 % (11.5-14.5); RDW Standard Deviation 45.3 fL (36.4-46.3); Red Blood Count 3.57 M/uL (4.70-6.10); White Blood Count 5.74 K/ul (4.8-10.8)
--- NOTE | 2022-11-15 07:46 | Hospitalist Progress Note ---
Date of Service November 15, 2022 Assessment & Plan (1) Cellulitis of right leg: Plan: Ampicilin was given for both UTI and cellulitis. Changed to amoxicillin. (2) UTI (urinary tract infection): Plan: Abx as above. (3) Leg DVT (deep venous thromboembolism), chronic: Plan: Chronic, h/o provoked DVT in 2020. Will stop anticoagulation at this time. Low risk for PE. Cont TEDS and abx. Poor candidate for AC anyway as he is a fall risk and already bumps into things per . (4) IHSAN (acute kidney injury): Plan: Elevated creatinine 1.9 with baseline 1.2 (from 2 years ago--nothing recent--1.9 may be new baseline). Cont holding Mobic and Lasix. Improved with some IVF overnight to creatinine 1.4 today. Trend in am. Avoid contrast or other nephrotoxic substances. (5) Elevated troponin: Plan: Likely related to renal disease decline and no further cardiac workup is needed at this point. (6) BPH (benign prostatic hyperplasia): Plan: chronic, stable. Cont tamsulosin and finasteride per home regimen. (7) HLD (hyperlipidemia): Plan: chronic, stable. Cont simvastatin per home regimen. (8) Ambulatory dysfunction: Plan: chronic, described as impulsive with movements by . Ambulates with a walker at his baseline. Notably, works nights and they spend very little time together during the days so he is mostly alone. SNF recommended by therapy. (9) Depression: Plan: chronic, stable. Cont citalopram per home regimen. Heparin drip Full Code Dispo-awaiting SNF placement. Linn Victor DO [facility] Hospitalist Admission and Anticipated Discharge Date Admission Date: November 12, 2022 Subjective 77 yo M with multiple comorbidities brought in by his who is an RN for a small wound on his RLE that was draining with increased redness spreading up the medial calf, swelling of the RLE and pain in the RLE. Chronic DVT was seen on RLE us. RLE cellulitis improved-patient has TEDS on Denies pain in his leg Denies chest pain, SOB or other issues. PT recommending SNF, discussed with Awaiting placement. Review of Systems Review of Systems: All systems were reviewed and negative except as indicated on HPI above. Physical Exam Physical Exam: CONSTITUTIONAL: WNWD, vitals as above, generally well-appearing EYES: normal conjunctivae, no scleral icterus ENT: external ear and nose normal, MMM NECK: trachea midline RESPIRATORY: clear to auscultation bilaterally, no crackles, rales or wheezes, slightly increased respiratory effort without hypoxia. CARDIOVASCULAR: regular rate and rhythm, S1 and 2 heard without murmurs, gallops or rubs, no JVD, no edema peripherally. CHEST: inspection of chest was normal GASTROINTESTINAL: soft, nontender, ND, no guarding MUSCULOSKELETAL: strength 5/5 throughout, head is normocephalic and atraumatic SKIN: warm and dry, TEDs in place bilaterally. Small open wounds on medial ankle with very minimal clear drainage. Erythema from cellulitis has imrpoved. NEUROLOGIC: CN 2-12 grossly intact, no sensory deficit, normal cognition, normal speech, no tremor PSYCHIATRIC: alert cooperative and oriented to person, place and time. Results & Data Results & Data Vital Signs (Past 12 Hours) Vital Signs Temp Pulse Pulse Resp BP Pulse Ox O2 Del Method 11/15/22 07:30 67 11/15/22 03:25 36.8 C 73 18 127/65 93 Room Air 11/14/22 22:01 75 11/15/22 00:00 37.0 C 53 L 18 131/75 95 Room Air Laboratory Results Short CBC 11/15/22 Range/Units 06:48 WBC 5.74 (4.8-10.8) K/ul Hgb 10.3 L (14.0-18.0) g/dl Hct 30.7 L (42.0-52.0) % Plt Count 252 (130-400) K/uL Medications Administered Current Inpatient Medications Aspirin (Aspirin 81 Mg Ectab) 81 mg PO QAM [facility] Stop: 12/13/22 08:59 Last Admin: 11/14/22 07:30 Dose: 81 mg Citalopram Hydrobromide (Citalopram 20 Mg Tab) 20 mg PO QPM [facility] Stop: 12/12/22 21:04 Last Admin: 11/14/22 20:21 Dose: 20 mg Finasteride (Finasteride 5 Mg Tab) 5 mg PO QPM [facility] Stop: 12/12/22 21:04 Last Admin: 11/14/22 20:21 Dose: 5 mg Heparin Sodium (Porcine) (Heparin Sod 5,000 Unit/0.5 Ml Vial) 5,000 units SQ Q8 [facility] Stop: 12/14/22 14:44 Last Admin: 11/15/22 05:31 Dose: 5,000 units Ampicillin Sodium 1,000 mg/ (Sodium Chloride) 50 mls @ 100 mls/hr IV Q8H [facility] Stop: 11/24/22 10:29 Last Infusion: 11/15/22 02:59 Dose: Infused Pantoprazole Sodium (Pantoprazole 40 Mg Tab) 40 mg PO DAILY [facility] Stop: 12/13/22 08:59 Last Admin: 11/14/22 07:30 Dose: 40 mg Simvastatin (Simvastatin 20 Mg Tab) 20 mg PO QPM [facility] Stop: 12/12/22 21:04 Last Admin: 11/14/22 20:21 Dose: 20 mg Tamsulosin HCl (Tamsulosin Hcl 0.4 Mg Cap) 0.4 mg PO HS [facility] Stop: 12/12/22 21:04 Last Admin: 11/14/22 20:21 Dose: 0.4 mg
[2022-11-15 07:55] LABS: Partial Thromboplastin Ratio 1.4; Partial Thromboplastin Time 38.4 Seconds (21.0-31.0)
[2022-11-15 08:13] LABS: BUN Creatinine Ratio 32.6 (10-20); Calcium 8.4 mg/dl (8.6-10.3); Creatinine Clr Calc Pharmacy 44.1 ml/min; Est GFR (African American) 57.2 ml/min; Est GFR (Non-African American) 49.3 ml/min; Potassium 4.3 mmol/L (3.5-5.1)
[2022-11-15] MEDS: PANTOprazole 40 MG TAB PO SCH (09:28)
[2022-11-15] MEDS: ASPIRIN 81 MG ECTAB PO SCH (09:29)
[2022-11-15] MEDS: AMOXICILLIN 500 MG CAP PO SCH (17:45)
[2022-11-15] MEDS: TAMSULOSIN HCL 0.4 MG CAP PO SCH (20:05)
[2022-11-15] MEDS: FINASTERIDE 5 MG TAB PO SCH (20:05)
[2022-11-15] MEDS: CITALOPRAM 20 MG TAB PO SCH (20:05)
[2022-11-15] MEDS: SIMVASTATIN 20 MG TAB PO SCH (20:06)
[2022-11-16] MEDS: HEPARIN SOD 5,000 UNIT/0.5 ML VIAL SQ SCH ×3 (05:22→21:38)
[2022-11-16 07:02] LABS: BUN Creatinine Ratio 27.8 (10-20); Calcium 8.9 mg/dl (8.6-10.3); Creatinine Clr Calc Pharmacy 42.2 ml/min; Est GFR (African American) 54.3 ml/min; Est GFR (Non-African American) 46.8 ml/min; Potassium 4.7 mmol/L (3.5-5.1)
[2022-11-16] MEDS: PANTOprazole 40 MG TAB PO SCH (08:21)
[2022-11-16] MEDS: AMOXICILLIN 500 MG CAP PO SCH ×3 (08:21→17:29)
[2022-11-16] MEDS: ASPIRIN 81 MG ECTAB PO SCH (08:52)
[2022-11-16 09:07] LABS: Basophils # (auto) 0.01 K/uL (0-0.2); Basophils % (auto) 0.2 %; Eosinophils # (auto) 0.22 K/uL (0-0.50); Eosinophils % (auto) 3.8 %; Hematocrit (blood only) 38.1 % (42.0-52.0); Hemoglobin 12.7 g/dl (14.0-18.0); Immature Granulocytes # (auto) 0.03 K/uL (0.01-0.20); Immature Granulocytes % (auto) 0.5 %; Lymphocytes % (auto) 8.7 %; Mean Corpuscular Hemoglobin 29.1 pg (25.0-34.0); Mean Corpuscular Hgb Conc 33.3 g/dL (32.0-36.0); Mean Corpuscular Volume 87.2 fL (80.0-100.0); Mean Platelet Volume 10.8 fL (9.4-12.4); Monocytes # (auto) 0.61 K/uL (0.11-0.59); Monocytes % (auto) 10.6 %; Neutrophils % (auto) 76.2 %; Platelet Count 311 K/uL (130-400); RDW Coefficient of Variation 13.9 % (11.5-14.5); RDW Standard Deviation 44.5 fL (36.4-46.3); Red Blood Count 4.37 M/uL (4.70-6.10); White Blood Count 5.77 K/ul (4.8-10.8)
[2022-11-16 09:32] LABS: Partial Thromboplastin Ratio 1.4; Partial Thromboplastin Time 37.9 Seconds (21.0-31.0)
--- NOTE | 2022-11-16 16:28 | Hospitalist Progress Note ---
Date of Service November 16, 2022 Assessment & Plan (1) UTI (urinary tract infection): Plan (1) Cellulitis of right leg: Initially on Ampicilin for both UTI and cellulitis. Changed to amoxicillin. (2) UTI (urinary tract infection): Abx as above. (3) Leg DVT (deep venous thromboembolism), chronic: Chronic, h/o provoked DVT in 2020. Stopped anticoagulation at this time. Low risk for PE. Cont TEDS and abx. Poor candidate for AC anyway as he is a fall risk and already bumps into things per . (4) IHSAN (acute kidney injury): Elevated creatinine 1.9 with baseline 1.2 (from 2 years ago--nothing recent). Cr has improved. (5) Elevated tr Likely related to renal disease decline and no further cardiac workup is needed at this point.oponin: (6) BPH (benign prostatic hyperplasia): chronic, stable. Cont tamsulosin and finasteride per home regimen. (7) HLD (hyperlipidemia): chronic, stable. Cont simvastatin per home regimen. (8) Ambulatory dysfunction: chronic, described as impulsive with movements by . Ambulates with a walker at his baseline. Notably, works nights and they spend very little time together during the days so he is mostly alone. SNF recommended by therapy. (9) Depression: chronic, stable. Cont citalopram per home regimen. Heparin SC/ Full Code. Awaiting SNF. Medically Stable for DC to Snf. Admission and Anticipated Discharge Date Admission Date: November 12, 2022 Subjective Patient seen and examined at bedside as a follow-up of cellulitis of right leg and UTI and chronic DVT in the leg. Patient was sitting up in bed, on room air, NAD, reports no new acute event overnight, reports eating okay and moving bowels okay, denies any pain, reports improvement in his erythema and swelling of right lower leg extremity. Physical Exam Physical Exam: GENERAL: Alert and oriented x3. NAD, on RA. HEENT: No pallor, no icterus. Pupils equal, round and reactive to light. Oral mucosa moist. NECK: No JVD, no neck masses. HEART: S1 and S2 heard. Regular rate and rhythm. No murmur, no gallop. RESPIRATORY SYSTEM: Normal AP diameter. No accessory muscle use. No wheezing, no crackles. ABDOMEN: Soft, bowel sounds present, nontender, no distention. CENTRAL NERVOUS SYSTEM: No facial droop. Speech is clear. Obeys simple commands. Moves extremities. EXTREMITIES: No edema, no erythema seen. TEDs b/l. RLE erythema has improved. Results & Data Results & Data Vital Signs (Past 12 Hours) Vital Signs Temp Pulse Resp BP Pulse Ox O2 Del Method 11/16/22 15:10 36.3 C L 82 18 143/78 H 96 Room Air 11/16/22 07:35 36.5 C 76 16 154/76 H 94 Room Air
[2022-11-16] MEDS: FINASTERIDE 5 MG TAB PO SCH (21:37)
[2022-11-16] MEDS: CITALOPRAM 20 MG TAB PO SCH (21:37)
[2022-11-16] MEDS: SIMVASTATIN 20 MG TAB PO SCH (21:38)
[2022-11-16] MEDS: TAMSULOSIN HCL 0.4 MG CAP PO SCH (21:38)
[2022-11-17] MEDS: HEPARIN SOD 5,000 UNIT/0.5 ML VIAL SQ SCH ×3 (04:48→21:02)
[2022-11-17 06:54] LABS: Basophils # (auto) 0.02 K/uL (0-0.2); Basophils % (auto) 0.3 %; Eosinophils # (auto) 0.28 K/uL (0-0.50); Eosinophils % (auto) 3.7 %; Hematocrit (blood only) 35.5 % (42.0-52.0); Hemoglobin 11.7 g/dl (14.0-18.0); Immature Granulocytes # (auto) 0.04 K/uL (0.01-0.20); Immature Granulocytes % (auto) 0.5 %; Lymphocytes # (auto) 0.66 K/uL (1.2-3.4); Lymphocytes % (auto) 8.8 %; Mean Corpuscular Hemoglobin 29.3 pg (25.0-34.0); Mean Platelet Volume 10.5 fL (9.4-12.4); Monocytes # (auto) 0.71 K/uL (0.11-0.59); Monocytes % (auto) 9.5 %; Neutrophils # (auto) 5.77 K/uL (1.40-6.50); Neutrophils % (auto) 77.2 %; Platelet Count 310 K/uL (130-400); RDW Coefficient of Variation 13.9 % (11.5-14.5); RDW Standard Deviation 45.1 fL (36.4-46.3); Red Blood Count 3.99 M/uL (4.70-6.10); White Blood Count 7.48 K/ul (4.8-10.8)
[2022-11-17 07:21] LABS: Partial Thromboplastin Ratio 1.3; Partial Thromboplastin Time 35.9 Seconds (21.0-31.0)
[2022-11-17] MEDS: ASPIRIN 81 MG ECTAB PO SCH (08:19)
[2022-11-17] MEDS: PANTOprazole 40 MG TAB PO SCH (08:19)
[2022-11-17] MEDS: AMOXICILLIN 500 MG CAP PO SCH ×2 (11:46→16:20)
--- NOTE | 2022-11-17 17:05 | Hospitalist Progress Note ---
Date of Service November 17, 2022 Assessment & Plan (1) UTI (urinary tract infection): Plan (1) Cellulitis of right leg: Initially on Ampicilin for both UTI and cellulitis. Changed to amoxicillin. (2) UTI (urinary tract infection): Abx as above. (3) Leg DVT (deep venous thromboembolism), chronic: Chronic, h/o provoked DVT in 2020. Stopped anticoagulation at this time. Low risk for PE. Cont TEDS and abx. Poor candidate for AC anyway as he is a fall risk and already bumps into things per . (4) IHSAN (acute kidney injury): Elevated creatinine 1.9 with baseline 1.2 (from 2 years ago--nothing recent). Cr has improved. (5) Elevated tr Likely related to renal disease decline and no further cardiac workup is needed at this point.oponin: (6) BPH (benign prostatic hyperplasia): chronic, stable. Cont tamsulosin and finasteride per home regimen. (7) HLD (hyperlipidemia): chronic, stable. Cont simvastatin per home regimen. (8) Ambulatory dysfunction: chronic, described as impulsive with movements by . Ambulates with a walker at his baseline. Notably, works nights and they spend very little time together during the days so he is mostly alone. SNF recommended by therapy. (9) Depression: chronic, stable. Cont citalopram per home regimen. Heparin SC/ Full Code. Awaiting SNF. Medically Stable for DC to Snf. Admission and Anticipated Discharge Date Admission Date: November 12, 2022 Subjective Patient seen and examined at bedside as a follow-up of cellulitis of right leg and UTI and chronic DVT in the leg. Patient was sitting up in bed, on room air, NAD, reports no new acute event overnight, reports eating okay and moving bowels okay, denies any pain, reports improvement in his erythema and swelling of right lower leg extremity. Physical Exam Physical Exam: GENERAL: Alert and oriented x3. NAD, on RA. HEENT: No pallor, no icterus. Pupils equal, round and reactive to light. Oral mucosa moist. NECK: No JVD, no neck masses. HEART: S1 and S2 heard. Regular rate and rhythm. No murmur, no gallop. RESPIRATORY SYSTEM: Normal AP diameter. No accessory muscle use. No wheezing, no crackles. ABDOMEN: Soft, bowel sounds present, nontender, no distention. CENTRAL NERVOUS SYSTEM: No facial droop. Speech is clear. Obeys simple commands. Moves extremities. EXTREMITIES: No edema, no erythema seen. TEDs b/l. RLE erythema has improved. Results & Data Results & Data Vital Signs (Past 12 Hours) Vital Signs Temp Pulse Resp BP Pulse Ox O2 Del Method 11/17/22 15:18 36.4 C L 78 16 137/76 94 Room Air 11/17/22 08:23 Room Air 11/17/22 07:45 36.6 C 79 16 143/81 H 94 Room Air
[2022-11-17] MEDS: TAMSULOSIN HCL 0.4 MG CAP PO SCH (21:00)
[2022-11-17] MEDS: SIMVASTATIN 20 MG TAB PO SCH (21:00)
[2022-11-17] MEDS: CITALOPRAM 20 MG TAB PO SCH (21:00)
[2022-11-17] MEDS: FINASTERIDE 5 MG TAB PO SCH (21:01)
[2022-11-18] MEDS: HEPARIN SOD 5,000 UNIT/0.5 ML VIAL SQ SCH ×3 (05:34→20:53)
[2022-11-18] MEDS: PANTOprazole 40 MG TAB PO SCH (08:03)
[2022-11-18] MEDS: ASPIRIN 81 MG ECTAB PO SCH (08:03)
[2022-11-18] MEDS: AMOXICILLIN 500 MG CAP PO SCH ×3 (08:04→17:20)
[2022-11-18 08:25] LABS: Basophils # (auto) 0.03 K/uL (0-0.2); Basophils % (auto) 0.4 %; Eosinophils # (auto) 0.24 K/uL (0-0.50); Eosinophils % (auto) 2.9 %; Hematocrit (blood only) 37.3 % (42.0-52.0); Hemoglobin 12.5 g/dl (14.0-18.0); Immature Granulocytes # (auto) 0.07 K/uL (0.01-0.20); Immature Granulocytes % (auto) 0.8 %; Lymphocytes # (auto) 0.64 K/uL (1.2-3.4); Lymphocytes % (auto) 7.6 %; Mean Corpuscular Hemoglobin 28.9 pg (25.0-34.0); Mean Corpuscular Hgb Conc 33.5 g/dL (32.0-36.0); Mean Corpuscular Volume 86.3 fL (80.0-100.0); Mean Platelet Volume 10.5 fL (9.4-12.4); Monocytes # (auto) 0.71 K/uL (0.11-0.59); Monocytes % (auto) 8.5 %; Neutrophils # (auto) 6.68 K/uL (1.40-6.50); Neutrophils % (auto) 79.8 %; Platelet Count 342 K/uL (130-400); RDW Coefficient of Variation 13.7 % (11.5-14.5); RDW Standard Deviation 42.7 fL (36.4-46.3); Red Blood Count 4.32 M/uL (4.70-6.10); White Blood Count 8.37 K/ul (4.8-10.8)
[2022-11-18 08:48] LABS: Partial Thromboplastin Ratio 1.2; Partial Thromboplastin Time 31.9 Seconds (21.0-31.0)
--- NOTE | 2022-11-18 16:09 | Hospitalist Progress Note ---
Date of Service November 18, 2022 Assessment & Plan (1) UTI (urinary tract infection): Plan (1) Cellulitis of right leg: Initially on Ampicilin for both UTI and cellulitis. Changed to amoxicillin. (2) UTI (urinary tract infection): Abx as above. (3) Leg DVT (deep venous thromboembolism), chronic: Chronic, h/o provoked DVT in 2020. Stopped anticoagulation at this time. Low risk for PE. Cont TEDS and abx. Poor candidate for AC anyway as he is a fall risk and already bumps into things per . (4) IHSAN (acute kidney injury): Elevated creatinine 1.9 with baseline 1.2 (from 2 years ago--nothing recent). Cr has improved. (5) Elevated tr Likely related to renal disease decline and no further cardiac workup is needed at this point.oponin: (6) BPH (benign prostatic hyperplasia): chronic, stable. Cont tamsulosin and finasteride per home regimen. (7) HLD (hyperlipidemia): chronic, stable. Cont simvastatin per home regimen. (8) Ambulatory dysfunction: chronic, described as impulsive with movements by . Ambulates with a walker at his baseline. Notably, works nights and they spend very little time together during the days so he is mostly alone. SNF recommended by therapy. (9) Depression: chronic, stable. Cont citalopram per home regimen. Heparin SC/ Full Code. Awaiting SNF. Medically Stable for DC to Snf. Admission and Anticipated Discharge Date Admission Date: November 12, 2022 Subjective Patient seen and examined at bedside as a follow-up of cellulitis of right leg and UTI and chronic DVT in the leg. Patient was lying in bed, on room air, NAD, reports no new acute event overnight, reports eating okay and moving bowels okay, denies any pain, reports improvement in his erythema and swelling of right lower leg extremity. Physical Exam Physical Exam: GENERAL: Alert and oriented x3. NAD, on RA. HEENT: No pallor, no icterus. Pupils equal, round and reactive to light. Oral mucosa moist. NECK: No JVD, no neck masses. HEART: S1 and S2 heard. Regular rate and rhythm. No murmur, no gallop. RESPIRATORY SYSTEM: Normal AP diameter. No accessory muscle use. No wheezing, no crackles. ABDOMEN: Soft, bowel sounds present, nontender, no distention. CENTRAL NERVOUS SYSTEM: No facial droop. Speech is clear. Obeys simple commands. Moves extremities. EXTREMITIES: No edema, no erythema seen. TEDs b/l. RLE erythema has improved. Results & Data Results & Data Vital Signs (Past 12 Hours) Vital Signs Temp Pulse Resp BP Pulse Ox O2 Del Method 11/18/22 07:42 36.8 C 79 18 137/75 94 Room Air 11/18/22 07:35 Room Air
[2022-11-18] MEDS: SIMVASTATIN 20 MG TAB PO SCH (20:52)
[2022-11-18] MEDS: FINASTERIDE 5 MG TAB PO SCH (20:52)
[2022-11-18] MEDS: TAMSULOSIN HCL 0.4 MG CAP PO SCH (20:52)
[2022-11-18] MEDS: CITALOPRAM 20 MG TAB PO SCH (20:52)
[2022-11-19] MEDS: HEPARIN SOD 5,000 UNIT/0.5 ML VIAL SQ SCH ×3 (06:04→20:29)
[2022-11-19 06:22] LABS: Basophils # (auto) 0.02 K/uL (0-0.2); Basophils % (auto) 0.3 %; Eosinophils # (auto) 0.28 K/uL (0-0.50); Eosinophils % (auto) 4.2 %; Hematocrit (blood only) 35.7 % (42.0-52.0); Immature Granulocytes # (auto) 0.07 K/uL (0.01-0.20); Immature Granulocytes % (auto) 1.1 %; Lymphocytes # (auto) 0.75 K/uL (1.2-3.4); Lymphocytes % (auto) 11.4 %; Mean Corpuscular Hemoglobin 29.3 pg (25.0-34.0); Mean Corpuscular Hgb Conc 33.6 g/dL (32.0-36.0); Mean Corpuscular Volume 87.3 fL (80.0-100.0); Mean Platelet Volume 10.6 fL (9.4-12.4); Monocytes # (auto) 0.59 K/uL (0.11-0.59); Neutrophils # (auto) 4.88 K/uL (1.40-6.50); Platelet Count 337 K/uL (130-400); RDW Standard Deviation 44.1 fL (36.4-46.3); Red Blood Count 4.09 M/uL (4.70-6.10); White Blood Count 6.59 K/ul (4.8-10.8)
[2022-11-19 06:54] LABS: Partial Thromboplastin Ratio 1.2; Partial Thromboplastin Time 33.5 Seconds (21.0-31.0)
[2022-11-19] MEDS: AMOXICILLIN 500 MG CAP PO SCH ×2 (07:30→13:06)
[2022-11-19] MEDS: PANTOprazole 40 MG TAB PO SCH (07:30)
[2022-11-19] MEDS: ASPIRIN 81 MG ECTAB PO SCH (07:30)
--- NOTE | 2022-11-19 10:33 | Hospitalist Progress Note ---
Date of Service November 19, 2022 Assessment & Plan (1) UTI (urinary tract infection): Plan Per previous hospitalist w/ edit/ addendum (1) Cellulitis of right leg: Initially on Ampicilin for both UTI and cellulitis. Changed to amoxicillin. (2) UTI (urinary tract infection): Abx as above. (3) Leg DVT (deep venous thromboembolism), chronic: Chronic, h/o provoked DVT in 2020. Stopped anticoagulation at this time. Low risk for PE. Cont TEDS and abx. Poor candidate for AC anyway as he is a fall risk and already bumps into things per . (4) IHSAN (acute kidney injury): Elevated creatinine 1.9 with baseline 1.2 (from 2 years ago--nothing recent). Cr has improved. (5) Elevated troponin Likely related to renal disease decline and no further cardiac workup is needed at this point (cardiology was consulted and echo was reviewed): (6) BPH (benign prostatic hyperplasia): chronic, stable. Cont tamsulosin and finasteride per home regimen. (7) HLD (hyperlipidemia): chronic, stable. Cont simvastatin per home regimen. (8) Ambulatory dysfunction: chronic, described as impulsive with movements by . Ambulates with a walker at his baseline. Notably, works nights and they spend very little time together during the days so he is mostly alone. SNF recommended by therapy. (9) Depression: chronic, stable. Cont citalopram per home regimen. Heparin SC/ Full Code. Awaiting SNF. Medically Stable for DC to Snf. Admission and Anticipated Discharge Date Admission Date: November 12, 2022 Subjective Patient seen in follow-up of cellulitis of right leg and UTI and chronic DVT in the leg. Patient is sitting up in chair in NAD, watching TV, on room air reports no new acute event overnight Denies fever, chills, chest pain, shortness of breath, abd. pain Awaiting placement Review of Systems Review of Systems: All systems reviewed & are unremarkable except as noted in Subjective Physical Exam Physical Exam: GENERAL: Alert and oriented x3. NAD, on RA. HEENT: No pallor, no icteru s. Pupils equal, round and reactive to light. Oral m ucosa moist. NECK: No JVD, no neck masses. HEART: S1 and S2 heard. Re gular rate and rhy thm. No murmur, n o gallop. RESPIRAT ORY: Normal AP di ameter. No access ory muscle use. N o wheezing, no aircraft captain ckles. ABDOMEN: S oft, bowel sounds present, nontender , no distention. N EURO: No facial d marcelo. Speech is c lear. Obeys simpl e commands. Moves extremities. EXTR EMITIES: No edema , no erythema seen . TEDs b/l. RLE er ythema has improve d. Results & Data Results & Data Vital Signs (Past 12 Hours) Vital Signs Temp Pulse Resp BP Pulse Ox O2 Del Method 11/19/22 07:22 36.6 C 84 16 138/72 95 Room Air Laboratory Results 11/19/22 11/19/22 Range/Units 05:42 05:42 WBC 6.59 (4.8-10.8) K/ul RBC 4.09 L (4.70-6.10) M/uL Hgb 12.0 L (14.0-18.0) g/dl Hct 35.7 L (42.0-52.0) % MCV 87.3 (80.0-100.0) fL MCH 29.3 (25.0-34.0) pg MCHC 33.6 (32.0-36.0) g/dL RDW Std Deviation 44.1 (36.4-46.3) fL RDW Coeff of Julius 14.0 (11.5-14.5) % Plt Count 337 (130-400) K/uL MPV 10.6 (9.4-12.4) fL Immature Gran % (Auto) 1.1 % Neut % (Auto) 74.0 % Lymph % (Auto) 11.4 % [place] % (Auto) 9.0 % Eos % (Auto) 4.2 % Baso % (Auto) 0.3 % Neut # (Auto) 4.88 (1.40-6.50) K/uL Lymph # (Auto) 0.75 L (1.2-3.4) K/uL [place] # (Auto) 0.59 (0.11-0.59) K/uL Eos # (Auto) 0.28 (0-0.50) K/uL Baso # (Auto) 0.02 (0-0.2) K/uL Immature Gran # (Auto) 0.07 (0.01-0.20) K/uL APTT 33.5 H (21.0-31.0) Seconds PTT Ratio 1.2 Medications Administered Current Inpatient Medications Amoxicillin (Amoxicillin 500 Mg Cap) 500 mg PO TIDM [facility]; Protocol Stop: 11/19/22 16:59 Last Admin: 11/19/22 07:30 Dose: 500 mg Aspirin (Aspirin 81 Mg Ectab) 81 mg PO QAM [facility] Stop: 12/13/22 08:59 Last Admin: 11/19/22 07:30 Dose: 81 mg Citalopram Hydrobromide (Citalopram 20 Mg Tab) 20 mg PO QPM [facility] Stop: 12/12/22 21:04 Last Admin: 11/18/22 20:52 Dose: 20 mg Finasteride (Finasteride 5 Mg Tab) 5 mg PO QPM [facility] Stop: 12/12/22 21:04 Last Admin: 11/18/22 20:52 Dose: 5 mg Heparin Sodium (Porcine) (Heparin Sod 5,000 Unit/0.5 Ml Vial) 5,000 units SQ Q8 [facility] Stop: 12/14/22 14:44 Last Admin: 11/19/22 06:04 Dose: 5,000 units Pantoprazole Sodium (Pantoprazole 40 Mg Tab) 40 mg PO DAILY [facility] Stop: 12/13/22 08:59 Last Admin: 11/19/22 07:30 Dose: 40 mg Simvastatin (Simvastatin 20 Mg Tab) 20 mg PO QPM [facility] Stop: 12/12/22 21:04 Last Admin: 11/18/22 20:52 Dose: 20 mg Tamsulosin HCl (Tamsulosin Hcl 0.4 Mg Cap) 0.4 mg PO HS [facility] Stop: 12/12/22 21:04 Last Admin: 11/18/22 20:52 Dose: 0.4 mg
[2022-11-19] MEDS: CITALOPRAM 20 MG TAB PO SCH (20:29)
[2022-11-19] MEDS: FINASTERIDE 5 MG TAB PO SCH (20:29)
[2022-11-19] MEDS: SIMVASTATIN 20 MG TAB PO SCH (20:29)
[2022-11-19] MEDS: TAMSULOSIN HCL 0.4 MG CAP PO SCH (20:29)
[2022-11-20] MEDS: HEPARIN SOD 5,000 UNIT/0.5 ML VIAL SQ SCH ×3 (06:07→20:47)
[2022-11-20 06:35] LABS: Basophils # (auto) 0.02 K/uL (0-0.2); Basophils % (auto) 0.3 %; Eosinophils # (auto) 0.25 K/uL (0-0.50); Hematocrit (blood only) 33.5 % (42.0-52.0); Hemoglobin 11.3 g/dl (14.0-18.0); Immature Granulocytes # (auto) 0.06 K/uL (0.01-0.20); Lymphocytes # (auto) 0.71 K/uL (1.2-3.4); Lymphocytes % (auto) 11.3 %; Mean Corpuscular Hemoglobin 29.4 pg (25.0-34.0); Mean Corpuscular Hgb Conc 33.7 g/dL (32.0-36.0); Mean Platelet Volume 10.4 fL (9.4-12.4); Monocytes # (auto) 0.57 K/uL (0.11-0.59); Monocytes % (auto) 9.1 %; Neutrophils # (auto) 4.67 K/uL (1.40-6.50); Neutrophils % (auto) 74.3 %; Platelet Count 361 K/uL (130-400); RDW Coefficient of Variation 13.9 % (11.5-14.5); RDW Standard Deviation 43.7 fL (36.4-46.3); Red Blood Count 3.85 M/uL (4.70-6.10); White Blood Count 6.28 K/ul (4.8-10.8)
[2022-11-20 06:52] LABS: BUN Creatinine Ratio 25.2 (10-20); Calcium 8.3 mg/dl (8.6-10.3); Creatinine Clr Calc Pharmacy 51.1 ml/min; Est GFR (African American) 68.4 ml/min; Magnesium 1.8 mg/dl (1.7-2.4); Phosphorus 2.6 mg/dl (2.5-4.9); Potassium 4.4 mmol/L (3.5-5.1)
[2022-11-20 07:02] LABS: Partial Thromboplastin Ratio 1.3
[2022-11-20] MEDS: ASPIRIN 81 MG ECTAB PO SCH (07:26)
[2022-11-20] MEDS: PANTOprazole 40 MG TAB PO SCH (07:26)
--- NOTE | 2022-11-20 13:24 | Hospitalist Progress Note ---
Date of Service November 20, 2022 Assessment & Plan (1) UTI (urinary tract infection): Plan Per previous hospitalist w/ edit/ addendum (1) Cellulitis of right leg: Initially on Ampicilin for both UTI and cellulitis. Changed to amoxicillin. (2) UTI (urinary tract infection): Abx as above. (3) Leg DVT (deep venous thromboembolism), chronic: Chronic, h/o provoked DVT in 2020. Stopped anticoagulation at this time. Low risk for PE. Cont TEDS and abx. Poor candidate for AC anyway as he is a fall risk and already bumps into things per . (4) IHSAN (acute kidney injury): Elevated creatinine 1.9 with baseline 1.2 (from 2 years ago--nothing recent). Cr has improved. (5) Elevated troponin Likely related to renal disease decline and no further cardiac workup is needed at this point (cardiology was consulted and echo was reviewed): (6) BPH (benign prostatic hyperplasia): chronic, stable. Cont tamsulosin and finasteride per home regimen. (7) HLD (hyperlipidemia): chronic, stable. Cont simvastatin per home regimen. (8) Ambulatory dysfunction: chronic, described as impulsive with movements by . Ambulates with a walker at his baseline. Notably, works nights and they spend very little time together during the days so he is mostly alone. SNF recommended by therapy. (9) Depression: chronic, stable. Cont citalopram per home regimen. Heparin SC/ Full Code. Awaiting SNF. Medically Stable for DC to Snf. Admission and Anticipated Discharge Date Admission Date: November 12, 2022 Subjective Patient seen in follow-up of cellulitis of right leg and UTI and chronic DVT in the leg. Patient is sitting up in chair in NAD, watching TV, eating lunch, on room air reports no new acute event overnight Denies fever, chills, chest pain, shortness of breath, abd. pain, feeling well Awaiting placement Review of Systems Review of Systems: All systems reviewed & are unremarkable except as noted in Subjective Physical Exam Physical Exam: GENERAL: Alert and oriented x3. NAD, on RA. HEENT: No pallor, no icteru s. Pupils equal, round and reactive to light. Oral m ucosa moist. NECK: No JVD, no neck masses. HEART: S1 and S2 heard. Re gular rate and rhy thm. No murmur, n o gallop. RESPIRAT ORY: Normal AP di ameter. No access ory muscle use. N o wheezing, no command post craftsman ckles. ABDOMEN: S oft, bowel sounds present, nontender , no distention. N EURO: No facial d marcelo. Speech is c lear. Obeys simpl e commands. Moves extremities. EXTR EMITIES: No edema , no erythema seen . TEDs b/l. RLE er ythema has improve d. Results & Data Results & Data Vital Signs (Past 12 Hours) Vital Signs Temp Pulse Resp BP Pulse Ox O2 Del Method 11/20/22 07:22 Room Air 11/20/22 06:57 36.6 C 64 16 144/78 H 92 Room Air Laboratory Results 11/20/22 11/20/22 11/20/22 Range/Units 06:00 06:00 06:00 WBC 6.28 (4.8-10.8) K/ul RBC 3.85 L (4.70-6.10) M/uL Hgb 11.3 L (14.0-18.0) g/dl Hct 33.5 L (42.0-52.0) % MCV 87.0 (80.0-100.0) fL MCH 29.4 (25.0-34.0) pg MCHC 33.7 (32.0-36.0) g/dL RDW Std Deviation 43.7 (36.4-46.3) fL RDW Coeff of Julius 13.9 (11.5-14.5) % Plt Count 361 (130-400) K/uL MPV 10.4 (9.4-12.4) fL Immature Gran % (Auto) 1.0 % Neut % (Auto) 74.3 % Lymph % (Auto) 11.3 % [facility] % (Auto) 9.1 % Eos % (Auto) 4.0 % Baso % (Auto) 0.3 % Neut # (Auto) 4.67 (1.40-6.50) K/uL Lymph # (Auto) 0.71 L (1.2-3.4) K/uL [facility] # (Auto) 0.57 (0.11-0.59) K/uL Eos # (Auto) 0.25 (0-0.50) K/uL Baso # (Auto) 0.02 (0-0.2) K/uL Immature Gran # (Auto) 0.06 (0.01-0.20) K/uL APTT 36.0 H (21.0-31.0) Seconds PTT Ratio 1.3 Sodium 136 (136-145) mmol/L Potassium 4.4 (3.5-5.1) mmol/L Chloride 107 (98-107) mmol/L Carbon Dioxide 24 (21-32) mmol/L Anion Gap 5 (3-11) BUN 30 H (6-23) mg/dl Creatinine 1.19 (0.6-1.4) mg/dl Est Cr Clr Drug Dosing 51.1 ml/min Est GFR ( Amer) 68.4 ml/min Est GFR (Non-Af Amer) 59.0 ml/min BUN/Creatinine Ratio 25.2 H (10-20) Glucose 88 (70-99(Fasting)) mg/dl Calcium 8.3 L (8.6-10.3) mg/dl Phosphorus 2.6 (2.5-4.9) mg/dl Magnesium 1.8 (1.7-2.4) mg/dl Medications Administered Current Inpatient Medications Aspirin (Aspirin 81 Mg Ectab) 81 mg PO QAM [facility] Stop: 12/13/22 08:59 Last Admin: 11/20/22 07:26 Dose: 81 mg Citalopram Hydrobromide (Citalopram 20 Mg Tab) 20 mg PO QPM [facility] Stop: 12/12/22 21:04 Last Admin: 11/19/22 20:29 Dose: 20 mg Finasteride (Finasteride 5 Mg Tab) 5 mg PO QPM [facility] Stop: 12/12/22 21:04 Last Admin: 11/19/22 20:29 Dose: 5 mg Heparin Sodium (Porcine) (Heparin Sod 5,000 Unit/0.5 Ml Vial) 5,000 units SQ Q8 [facility] Stop: 12/14/22 14:44 Last Admin: 11/20/22 06:07 Dose: 5,000 units Pantoprazole Sodium (Pantoprazole 40 Mg Tab) 40 mg PO DAILY [facility] Stop: 12/13/22 08:59 Last Admin: 11/20/22 07:26 Dose: 40 mg Simvastatin (Simvastatin 20 Mg Tab) 20 mg PO QPM [facility] Stop: 12/12/22 21:04 Last Admin: 11/19/22 20:29 Dose: 20 mg Tamsulosin HCl (Tamsulosin Hcl 0.4 Mg Cap) 0.4 mg PO [facility] Stop: 12/12/22 21:04 Last Admin: 11/19/22 20:29 Dose: 0.4 mg
[2022-11-20] MEDS: FINASTERIDE 5 MG TAB PO SCH (20:47)
[2022-11-20] MEDS: TAMSULOSIN HCL 0.4 MG CAP PO SCH (20:47)
[2022-11-20] MEDS: CITALOPRAM 20 MG TAB PO SCH (20:47)
[2022-11-20] MEDS: SIMVASTATIN 20 MG TAB PO SCH (20:47)
[2022-11-21] MEDS: HEPARIN SOD 5,000 UNIT/0.5 ML VIAL SQ SCH ×2 (05:55→13:34)
[2022-11-21] MEDS: ASPIRIN 81 MG ECTAB PO SCH (09:00)
[2022-11-21] MEDS: PANTOprazole 40 MG TAB PO SCH (09:01)
--- NOTE | 2022-11-21 13:41 | Hospitalist Progress Note ---
Date of Service November 21, 2022 Assessment & Plan (1) UTI (urinary tract infection): Plan Per previous hospitalist w/ edit/ addendum (1) Cellulitis of right leg: Initially on Ampicilin for both UTI and cellulitis. Changed to amoxicillin. Course of the antibiotic is finished For evidence of cellulitis (2) UTI (urinary tract infection): Abx as above. Antibiotic course is done (3) Leg DVT (deep venous thromboembolism), chronic: Chronic, h/o provoked DVT in 2019. Stopped anticoagulation at this time. Low risk for PE. Cont TEDS and abx. Poor candidate for AC anyway as he is a fall risk and already bumps into things per . (4) IHSAN (acute kidney injury): Elevated creatinine 1.9 with baseline 1.2 (from 2 years ago--nothing recent). Cr has improved. Creatinine has been normalized (5) Elevated troponin Likely related to renal disease decline and no further cardiac workup is needed at this point (cardiology was consulted and echo was reviewed): No ACS (6) BPH (benign prostatic hyperplasia): chronic, stable. Cont tamsulosin and finasteride per home regimen. (7) HLD (hyperlipidemia): chronic, stable. Cont simvastatin per home regimen. (8) Ambulatory dysfunction: chronic, described as impulsive with movements by . Ambulates with a walker at his baseline. Notably, works nights and they spend very little time together during the days so he is mostly alone. SNF recommended by therapy. (9) Depression: chronic, stable. Cont citalopram per home regimen. Heparin SC/ Full Code. Awaiting SNF. Medically Stable for DC to Snf. Has been accepted to SNF and will be discharged this afternoon Admission and Anticipated Discharge Date Admission Date: November 12, 2022 Subjective 11/21/2022 The patient was seen and examined in medical floor He has been sitting on a chair and eating without any acute distress Lumbar discharge back to nursing facility today Review of Systems Review of Systems: All systems reviewed and are unremarkable except as noted below Physical Exam Physical Exam: Sitting on a chair without any acute distress Constitutional: well developed, well nourished and + obese; not ill appearing Eyes: PERRL, conjunctivae normal, anicteric sclerae ENMT: external ear and nose normal, oropharynx normal Respiratory: no respiratory distress Auscultation: lungs clear to auscultation bilaterally Cardiovascular: Rate/Rhythm: regular rate and regular rhythm; not tachycardic Heart Sounds: normal S1 and normal S2; no murmur Extremities: + edema (Trace edema bilaterally) Gastrointestinal (Abdomen): Inspection/Auscultation: normal bowel sounds; abdomen not distended Percussion/Palpation: abdomen soft; abdomen nontender Musculoskeletal: No acute arthritis involving any joint Neurologic: normal touch/pain/proprioception and moves all extremities; no focal motor deficits Lymphatic: no cervical or axillary lymphadenopathy Results & Data Results & Data Vital Signs (Past 12 Hours) Vital Signs Temp Pulse Pulse Resp BP BP Pulse Ox 11/21/22 12:59 36.5 C 96 H 79 18 112/71 143/83 H 94 11/21/22 08:21 36.5 C 79 18 112/71 94 O2 Del Method 11/21/22 12:59 11/21/22 08:21 Room Air
--- NOTE | 2022-11-22 07:54 | Discharge Summary ---
Date of Service November 21, 2022 Admission HPI Per Admitting Provider Pt is a 77 y/o M with hx of BPH, HLD, GERD, Depression, DJD, hearing loss came to the ER with worsening leg swelling with ambulatory dysfunction. Per pt and family leg swelling has been worsening for few weeks and with leg swelling pt is having difficulty with ambulation. Denied any fever, hx of DVT, orthopnea, CP, SOB. Denied any prior hx of CHF and currently does not take any diuretics. Admission Exam Per Admitting Provider Physical Exam: General:.NAD, well developed, well nourished, average body habitus HEENT:.Normocephalic and atraumatic, Normal Conjunctiva, EOMI, Sclera is non- icteric Lungs:.No signs of respiratory distress, CTA, no wheezing or crackles Heart:.Normal S1, S2, no murmur Abdominal:.ND, Soft, NT MSK:severe b/l LE pitting edema, RLE: presence of blisters with small area of erythema which was warmth to touch Psych:.AAOx3, normal affect Principal Diagnosis UTI, cellulitis of right leg, ambulatory dysfunction, depression Discharge Exam Sitting on a chair without any acute distress Constitutional well developed, well nourished and + obese; not ill appearing Eyes PERRL, conjunctivae normal, anicteric sclerae ENMT external ear and nose normal, oropharynx normal Respiratory no respiratory distress Auscultation: lungs clear to auscultation bilaterally Cardiovascular Rate/Rhythm: regular rate and regular rhythm; not tachycardic Heart Sounds: normal S1 and normal S2; no murmur Extremities: + edema (Trace edema bilaterally) Gastrointestinal (Abdomen) Inspection/Auscultation: normal bowel sounds; abdomen not distended Percussion/Palpation: abdomen soft; abdomen nontender Neurologic normal touch/pain/proprioception and moves all extremities; no focal motor deficits Lymphatic no cervical or axillary lymphadenopathy Discharge Data Allergies Allergy/AdvReac Type Severity Reaction Status Date / Time No Known Allergies Allergy Unverified 11/12/22 18:14 Consultations 11/12/22 17:48 ED Decision to Admit Stat 11/12/22 21:05 Consult Cardiology Routine Ordered Studies 11/12/22 21:05 US venous doppler [facility] Urgent Hospital Course (1) UTI (urinary tract infection): Plan Per previous hospitalist w/ edit/ addendum (1) Cellulitis of right leg: Initially on Ampicilin for both UTI and cellulitis. Changed to amoxicillin. Course of the antibiotic is finished For evidence of cellulitis (2) UTI (urinary tract infection): Abx as above. Antibiotic course is done (3) Leg DVT (deep venous thromboembolism), chronic: Chronic, h/o provoked DVT in 2020. Stopped anticoagulation at this time. Low risk for PE. Cont TEDS and abx. Poor candidate for AC anyway as he is a fall risk and already bumps into things per . (4) IHSAN (acute kidney injury): Elevated creatinine 1.9 with baseline 1.2 (from 2 years ago--nothing recent). Cr has improved. Creatinine has been normalized (5) Elevated troponin Likely related to renal disease decline and no further cardiac workup is needed at this point (cardiology was consulted and echo was reviewed): No ACS (6) BPH (benign prostatic hyperplasia): chronic, stable. Cont tamsulosin and finasteride per home regimen. (7) HLD (hyperlipidemia): chronic, stable. Cont simvastatin per home regimen. (8) Ambulatory dysfunction: chronic, described as impulsive with movements by . Ambulates with a walker at his baseline. Notably, works nights and they spend very little time together during the days so he is mostly alone. SNF recommended by therapy. (9) Depression: chronic, stable. Cont citalopram per home regimen. Heparin SC/ Full Code. Awaiting SNF. Medically Stable for DC to Snf. Has been accepted to SNF and will be discharged this afternoon Total Time Total Time Spent Total Time Spent (In Minutes): 35 minutes Discharge Plan Discharge Items Patient Disposition: Transfer Retirement Fac Reason For Visit: LEG SWELLING Discharge Diagnosis: UTI, cellulitis of right leg, ambulatory dysfunction, depression Condition on Discharge: Fair Activity: Resume your previous activity Non-emergency contact: Primary Care Provider Call non-emergency contact if: you have any medication questions and your symptoms worsen Follow-up/Referrals: Chani Burrell M.D. [Primary Care Provider] - Diet: Heart Healthy Diet Texture: Easy to Chew Addtl Attending Provider Instructions: Please take precautions to avoid falls Try to drink more fluid Take your medications as advised Please keep appointments with your healthcare provider Pending Studies at Discharge: No Stand-Alone Forms: My [facility] Skilled Items Patient informed of condition?: Yes DNR: No Discharge Level of Care: Skilled Communicable Disease: No Discharge Prognosis: Stable Lines: None Urinary Catheter: No Medications and DC Order Prescriptions: Continued aspirin [Paulo Low Dose Aspirin] 81 mg Tablet,Delayed Release (Dr/Ec) 81 mg PO QAM citalopram 20 mg tablet 20 mg PO QPM simvastatin 20 mg tablet 20 mg PO QPM meloxicam 7.5 mg tablet 7.5 mg PO HS tamsulosin 0.4 mg capsule 0.4 mg PO HS finasteride 5 mg tablet 5 mg PO QPM pantoprazole 40 mg tablet,delayed release (DR/EC) 40 mg PO DAILY fluticasone propionate [Flovent HFA] 110 mcg/actuation HFA aerosol inhaler 2 puff INHALATION BID PRN (Reason: as directed) garlic 1,000 mg Capsule 1,000 mg PO QAM Discharge Orders: Discharge Order (Routine); Ordered 11/21/22 Ordered By: Cyndi Rios Admission Data Admit Date/Time: 11/12/22 18:43 Attending Provider: Cyndi Rios Admit Provider: Claudia Gibbs Primary Care Provider: Chani Burrell Other Providers: Jnenifer Krishna Clinton ; Claudia Gibbs ; Juan José Gan ; Bere Rowley ; Musa Davies Other Interventions: Discharge Summary Assessment (RN) Last Done: 11/21/22 12:59
== END 2022-11-21 15:30 | DRG 603 ==
LOC: ED 15:30 → 2N 18:43 → SUATTDRO 18:43 → 2N 21:18 → 3N 11-15 22:57

== ENCOUNTER 2023-06-27 11:59 | Inpatient (IN) ==
--- NOTE | 2023-06-27 13:07 | XRay Report ---
XR chest 1V portable CLINICAL HISTORY: stroke alert COMPARISON STUDY: Chest radiograph November 12, 2022. FINDINGS: There is no pneumothorax. Trace bilateral pleural effusions are present. There is a 7.9 cm right infrahilar mass-like opacity. Left lung is clear. There is no evidence for pulmonary edema. IMPRESSION: 1. 7.9 cm right infrahilar mass-like opacity. A chest CT with contrast is recommended to exclude a pu lmonary mass. 2. Trace bilateral pleural effusions. ACT 112: Positive. There are findings on this exam that require communication between the performing entity and the patient following Patient Test Result Information Act ([place] Act 112) guidelines. Electronically signed by: Luis Eduardo De Los Santos M.D. 06/27/2023 1:06 PM
--- NOTE | 2023-06-27 13:07 | Emergency Department Note ---
ED Visit Note This case was seen by the MICHAEL. The patient was sent over due to confusion he is 78 years of age and had an outpatient MRI that shows multiple strokes. Patient's symptoms have been greater than 24 hours and the patient is not a TNK candidate. I agree with the physician assistants evaluation assessment plan and treatment plan with the disposition for admission. I have reviewed the patient's chart prior to his admission .
--- NOTE | 2023-06-27 13:19 | Emergency Department Note ---
ED Provider Note History of Present Illness Chief Complaint: Stroke/CVA Symptoms Stated Complaint: MRI DONE, SENT BY RADIALOGIST Time Seen by Provider: 06/27/23 12:32 Source: patient and family Mode of arrival: ambulatory Limitations: no limitations This patient is a 78-year-old male who presents to the emergency department accompanied by his son-in-law for evaluation of progressive weakness. His son-in-law states that he has had issues over the past 2 years but they have worsened over the past 1 to 2 months. He has had generalized weakness as well as a hand tremor. He at times has some confusion. His family states that over the past month, it has gotten to the point that he is no longer able to perform ADLs such as showering or getting food for himself. Patient has seen his primary care provider for these symptoms and did have an MRI ordered which she had done today. They were told to come here directly after the MRI. No acute symptoms today. Patient states that it is a generalized weakness he denies any focal weakness. He denies any pain at this time. Home Medications Medication Instructions Recorded Confirmed Type aspirin 81 mg tablet,delayed 81 mg PO QAM 03/09/20 06/27/23 History release (Paulo Low Dose Aspirin) citalopram 20 mg tablet 20 mg PO QPM 03/09/20 06/27/23 History simvastatin 20 mg tablet 20 mg PO QPM 03/09/20 06/27/23 History finasteride 5 mg tablet 5 mg PO QPM 11/12/22 06/27/23 History garlic 1,000 mg capsule 1,000 mg PO QAM 11/12/22 06/27/23 History meloxicam 7.5 mg tablet 7.5 mg PO HS 11/12/22 06/27/23 History pantoprazole 40 mg tablet,delayed 40 mg PO DAILY 11/12/22 06/27/23 History release tamsulosin 0.4 mg capsule 0.4 mg PO HS 11/12/22 06/27/23 History potassium chloride 10 mEq 10 meq PO DAILY 06/13/23 06/27/23 History tablet,extended release furosemide 20 mg tablet 20 mg PO QAM 06/27/23 06/27/23 History furosemide 20 mg tablet 20 mg PO QPM PRN Edema 06/27/23 06/27/23 History mirabegron 25 mg tablet,extended 25 mg PO QAM 06/27/23 06/27/23 History release 24 hr (Myrbetriq) multivitamin 1 tab PO QAM 06/27/23 06/27/23 History vitamin A-vitamin C-vit E-min 1 tab PO DAILY 06/27/23 06/27/23 History tablet Allergies Allergy/AdvReac Type Severity Reaction Status Date / Time No Known Allergies Allergy Unverified 06/27/23 13:40 Past Med/Surg History Medical History Depression GERD (gastroesophageal reflux disease) HLD (hyperlipidemia) CKD (chronic kidney disease), stage III BPH (benign prostatic hyperplasia) Fall Surgical History Status post hip surgery Family History Other Cancer Social History Smoking Status: Former smoker Tobacco Type: Cigarettes Hx Alcohol Use: No Hx Substance Use: No Preferred Language: Khmer Communication Ability: Effective Steamer Operator Required: No Beliefs That Will Affect Care: None Current Living Situation: Spouse and Family Feels Safe at Home: Yes Assistive Devices: Denture - Upper, Denture - Lower, Glasses and Walker Physical Exam Vital Signs Vital Signs - 24 hr 06/27/23 12:01 06/27/23 12:44 06/27/23 12:44 Temperature 36.8 C Temperature Source Temporal Artery Scan Pulse Rate 97 H Pulse Rate [Apical] 77 Respiratory Rate 18 20 Respiratory Effort / Characteristics Non-Labored Spontaneous Respiratory Depth Normal Blood Pressure 120/77 Blood Pressure Mean 91 Blood Pressure Position Sitting Pulse Oximetry 93 94 93 Oxygen Delivery Method Room Air Room Air Room Air Sepsis Recent Fever Within 48 Hours No Sepsis New/Unexplained Change in Mental Status N/A Sepsis Action Taken by Nursing No Action Required 06/27/23 12:44 06/27/23 12:46 Temperature Temperature Source Pulse Rate 74 Pulse Rate [Apical] Respiratory Rate Respiratory Effort / Characteristics Respiratory Depth Blood Pressure Blood Pressure Mean Blood Pressure Position Pulse Oximetry 93 Oxygen Delivery Method Room Air Sepsis Recent Fever Within 48 Hours Sepsis New/Unexplained Change in Mental Status Sepsis Action Taken by Nursing VITALS: Vitals are noted on the nurse's note and reviewed by myself. GENERAL: This is a 78-year-old male, in no acute distress, well-developed well- nourished. SKIN: The skin was without rashes, erythema, edema, or bruising. EARS: External auditory canals clear, tympanic membranes pearly jin without erythema or effusion bilaterally. EYES: Pupils equal round and reactive to light and accommodation. NOSE: Patent, turbinates without inflammation or discharge. MOUTH: Mucous membranes moist. Tonsils are not enlarged. Pharynx without erythema or exudate. NECK: Supple without nuchal rigidity. No lymphadenopathy. HEART: Regular rate and rhythm without murmurs gallops or rubs. LUNGS: Clear to auscultation bilaterally without wheezes, rales or rhonchi. ABDOMEN: Positive bowel sounds x 4. Soft, nontender to palpation. MUSCULOSKELETAL: Full range of motion throughout. Strength 5/5 throughout. NEURO: Patient was alert and oriented to person and place, but not time. No focal neurological deficits. Course Administered Medications Discontinued Medications Aspirin (Aspirin 81 Mg Chew) 243 mg PO NOW STA Stop: 06/27/23 14:04 Last Admin: 06/27/23 15:23 Dose: 243 mg Documented By: QGV Ioversol (Optiray 320 500ml) 112 ml IV ONCE ONE Stop: 06/27/23 14:34 Last Admin: 06/27/23 14:33 Dose: 112 ml Documented By: VAF Medical Decision Making Differential Diagnosis Infection, dehydration, metabolic abnormality, hypo/hyperglycemia, electrolyte disturbance, anemia, hypoxia, cardiac sources, intracerebral event, toxicologic, neurologic, as well as other pathologies. Home Medications was personally reviewed by me Laboratory Data Attestation: I reviewed the patient's lab results. 06/27/23 15:04 06/27/23 12:56 Lab Results 06/27/23 06/27/23 06/27/23 Range/Units 12:56 13:11 15:04 WBC 5.39 (4.8-10.8) K/ul RBC 4.61 L (4.70-6.10) M/uL Hgb 13.2 L (14.0-18.0) g/dl POC Hgb 14.3 (14.0-18.0) g/dl Hct 39.5 L (42.0-52.0) % POC Hct 42 (42-52) % MCV 85.7 (80.0-100.0) fL MCH 28.6 (25.0-34.0) pg MCHC 33.4 (32.0-36.0) g/dL RDW Std Deviation 48.9 H (36.4-46.3) fL RDW Coeff of Julius 15.6 H (11.5-14.5) % Plt Count 228 (130-400) K/uL MPV 11.0 (9.4-12.4) fL PT 11.6 (9.0-12.0) Seconds INR 1.1 (0.9-1.1) APTT 33.4 H (21.0-31.0) Seconds PTT Ratio 1.2 POC Sodium 133 L (135-144) mmol/L Sodium 133 L (136-145) mmol/L POC Potassium 4.2 (3.3-5.0) mmol/L Potassium 4.3 (3.5-5.1) mmol/L POC Chloride 107 (101-112) mmol/L Chloride 106 (98-107) mmol/L Carbon Dioxide 21 (21-32) mmol/L POC Total CO2 19 L (24-31) mmol/L Anion Gap 6 (3-11) POC Anion Gap 12.0 L (16-25) mmol/L POC BUN 35 H (7-18) mg/dl BUN 39 H (6-23) mg/dl Creatinine 1.48 H (0.6-1.4) mg/dl POC Creatinine 1.6 H (0.6-1.3) mg/dl Est Cr Clr Drug Dosing Not Reportable Est GFR ( Amer) 52.1 ml/min Est GFR (Non-Af Amer) 45.0 ml/min BUN/Creatinine Ratio 26.4 H (10-20) Glucose 94 (70-99(Fasting)) mg/dl POC Glucose (other) 94 (70-99) mg/dl Calcium 8.9 (8.6-10.3) mg/dl POC Ioniz Calcium Enrique 1.04 L (1.12-1.32) mmol/l Magnesium 2.0 (1.7-2.4) mg/dl Total Bilirubin 0.3 (0.2-1.0) mg/dl AST 30 (13-39) U/L ALT 19 (7-52) U/L Alkaline Phosphatase 110 H (34-104) U/L Total Protein 5.2 L (6.0-8.3) gm/dl Albumin 2.0 L (3.4-5.0) gm/dl Globulin 3.2 (2.5-4.0) gm/dl Albumin/Globulin Ratio 0.6 L (0.9-2) Imaging Data Attestation: I personally reviewed and interpreted this imaging study as follows: Radiologist's Impression: Chest X-Ray 06/27/23 12:07 XR chest 1V portable CLINICAL HISTORY: stroke alert COMPARISON STUDY: Chest radiograph November 12, 2022. FINDINGS: There is no pneumothorax. Trace bilateral pleural effusions are present. There is a 7.9 cm right infrahilar mass-like opacity. Left lung is clear. There is no evidence for pulmonary edema. IMPRESSION: 1. 7.9 cm right infrahilar mass-like opacity. A chest CT with contrast is recommended to exclude a pulmonary mass. 2. Trace bilateral pleural effusions. ACT 112: Positive. There are findings on this exam that require communication between the performing entity and the patient following Patient Test Result Information Act ([place] Act 112) guidelines. Electronically signed by: Luis Eduardo De Los Santos M.D. 06/27/2023 1:06 PM Head CTA 06/27/23 13:27 CT angio head w con CLINICAL HISTORY: 78 years-old Male with Stroke on MRI. Acute strokelike symptoms COMPARISON STUDY: Brain MRI of same day TECHNIQUE: Following the IV administration of 112 cc of Optiray, CT angiogram of the brain was performed from the skull base to the vertex. Images are reviewed in the axial, sagittal, and coronal planes. 3-D MIPS images are created and assessed. IV contrast was administered without complication. All measurements were obtained according to NASCET criteria. A dose lowering technique was utilized adhering to the principles of ALARA. FINDINGS: CT ANGIOGRAM OF THE BRAIN: Atherosclerosis of the imaged internal carotid arteries which are patent without high-grade stenosis. The bilateral anterior and middle cerebral arteries are also patent. The vertebrobasilar system and posterior cerebral arteries are widely patent. There is no aneurysm, high-grade stenosis, or proximal branch occlusion identified. Dural sinuses appear patent. The numerous tiny acute subcentimeter infarcts in the brain are better seen on the brain MRI of same day. 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 Railroad Detective localizer images demonstrate pulmonary opacities, better seen on the chest CT of same day. IMPRESSION: 1. Unremarkable CTA. 2. Please refer to the brain MRI of same day for discussion of the acute cerebral and cerebellar infarcts. ACT 112: Negative or not required by law. The above report was generated using voice recognition software. It may contain grammatical, syntax or spelling errors. Electronically signed by: Jorden Francois M.D. 06/27/2023 2:58 PM Neck CTA 06/27/23 13:27 CT angio neck with con CLINICAL HISTORY: Stroke on MRI TECHNIQUE: Contiguous axial CT images of the head were acquired from the base of the skull to the vertex without intravenous contrast administration. CT angiography of the head and neck was performed following intravenous administration of iodinated contrast. Coronal and sagittal MIPS were obtained from the axial data set and were submitted for review. Automated dose lowering techniques and/or adjustment according to patient size were utilized for this examination. All measurements were calculated based on NASCET criteria. Comparison: None available at the time of this dictation. FINDINGS: Emphysema is seen. CTA Neck: A 3 vessel aortic arch is shown. Hemodynamically significant stenosis is seen in the left carotid artery bifurcation with approximately 75% stenosis of the ICA. Nonhemodynamically significant stenosis is seen in the right carotid bifurcation. The right vertebral artery is dominant. IMPRESSION: Hemodynamically significant stenosis is seen in the left ICA. Additional findings as above. Assessment of stenosis of the internal carotid arteries is based on NASCET criteria. ACT 112: Negative or not required by law. Electronically signed by: Darek Gray M.D. 06/27/2023 2:[address] 06/27/23 14:13 CT OF THE CHEST WITH IV CONTRAST CLINICAL HISTORY: Lung mass. COMPARISON STUDY: Chest radiograph performed earlier today. TECHNIQUE: Following IV administration of 112 mL of Optiray, helical axial images of the chest were obtained. Sagittal and coronal reconstructions were viewed as well as maximal intensity projections on an independent 3-D workstation. Automated exposure control was utilized for the study. A dose lowering technique was utilized adhering to the principles of ALARA. CT DOSE: 885.56 mGy.cm FINDINGS: There is mild emphysema. No enlarged axillary, mediastinal or hilar lymph nodes are present. The heart is mildly enlarged. There is moderate coronary artery calcification. No pericardial effusion is present. Mild anasarca is noted. There is no pneumothorax. Small bilateral pleural effusions, right larger than left, are noted. There is a 5.9 x 4.6 cm mass within the superior segment of the right lower lobe. This demonstrates peripheral enhancement with central hypodensity suggestive of necrosis. This mass occludes the bronchus to the superior segment of the right lower lobe. There is an adjacent 1.7 x 0.7 cm hypodense focus anterior to the mass. This represents thrombus. On this exam, it is difficult to determine whether this is arterial or venous. No suspicious lesions within the visualized skeletal structures are present. Visualized portions of the upper abdomen are unremarkable. T11 and T12 compression fractures are likely old. There are several old left rib fractures. IMPRESSION: 1. 5.9 x 4.6 cm mass within the superior segment of the right lower lobe, as described above. This occludes the bronchus to the superior segment of the right lower lobe and is highly suggestive of bronchogenic carcinoma. Pulmonary consultation is recommended. 2. 1.7 x 0.7 cm hypodense focus anterior to the mass consistent with thrombus. It is difficult to determine whether this is arterial or venous in location this could reflect bland or tumor thrombus. Follow-up PE protocol CT could be obtained for further evaluation. 3. No thoracic lymphadenopathy. 4. Small bilateral pleural effusions, right larger than left. 5. Emphysema. ACT 112: Positive. There are findings on this exam that require communication between the performing entity and the patient following Patient Test Result Information Act ([place] Act 112) guidelines. Electronically signed by: Luis Eduardo De Los Santos M.D. 06/27/2023 2:55 PM ECG Data Attestation: I personally reviewed and interpreted this ECG as follows: Indication: + weakness Rate (beats per minute): 73 Rhythm: + normal sinus ECG Intervals/blocks: + Normal QRS ECG ST segments: + Normal ST segments Change: no significant change MDM Narrative Continuous cardiac sonographer: Order was placed for continuous cardiac sonographer. Patient was placed on the cardiac sonographer. Patient was noted to be in normal sinus rhythm at an initial rate of 74 bpm. The patient is a 78-year-old male who presents today complaining of abnormal outpatient MRI. Patient has had progressively worsening weakness over the past few years, with more significantly worsening symptoms over the past 1 to 2 months. He had an MRI performed this morning as an outpatient which showed numerous acute infarcts within the frontal, parietal, occipital lobes and cerebellum. EKG shows a normal sinus rhythm. Labs show a mild IHSAN with creatinine of 1.48. There is no leukocytosis or significant anemia. Chest x- ray does show a mass therefore CT of the chest was ordered as well as CTA of the head and neck for further evaluation of the stroke. Case was discussed with the [facility], who agreed to evaluate the patient for further care. They did discuss with pulmonology in consultation as well. Impression Acute CVA (cerebrovascular accident), Lung mass Discharge Plan Visit Data Chief Complaint: Stroke/CVA Symptoms Stated Complaint: MRI DONE, SENT BY RADIALOGIST ED Provider: Anthony Barron ED Midlevel Provider: Emily Wooten Discharge Problem: Acute CVA (cerebrovascular accident), Lung mass Forms Stand Alone Forms: My [facility] Prescriptions Prescriptions: No Action potassium chloride 10 mEq tablet extended release 10 meq PO DAILY aspirin [Paulo Low Dose Aspirin] 81 mg Tablet,Delayed Release (Dr/Ec) 81 mg PO QAM citalopram 20 mg tablet 20 mg PO QPM simvastatin 20 mg tablet 20 mg PO QPM meloxicam 7.5 mg tablet 7.5 mg PO HS tamsulosin 0.4 mg capsule 0.4 mg PO HS finasteride 5 mg tablet 5 mg PO QPM pantoprazole 40 mg tablet,delayed release (DR/EC) 40 mg PO DAILY garlic 1,000 mg Capsule 1,000 mg PO QAM multivitamin Tablet 1 tab PO QAM furosemide 20 mg tablet 20 mg PO QAM furosemide 20 mg tablet 20 mg PO QPM PRN (Reason: Edema) Ocuvite Tablet 1 tab PO DAILY Myrbetriq 25 mg tablet extended release 24 hr 25 mg PO QAM Referrals Referrals: Chani Burrell M.D. [Primary Care Provider] -
[2023-06-27 13:27] LABS: iSTAT Creatinine 1.6 mg/dl (0.6-1.3); iSTAT Hemoglobin 14.3 g/dl (14.0-18.0); iSTAT Ionized Calcium 1.04 mmol/l (1.12-1.32); iSTAT Potassium 4.2 mmol/L (3.3-5.0)
[2023-06-27 13:30] LABS: Anion Gap 6 (3-11); Bilirubin,Total 0.3 mg/dl (0.2-1.0); Calcium 8.9 mg/dl (8.6-10.3); Carbon Dioxide 21 mmol/L (21-32); Chloride 106 mmol/L (98-107); Potassium 4.3 mmol/L (3.5-5.1); Sodium 133 mmol/L (136-145)
[2023-06-27 13:36] LABS: Alanine Aminotransferase 19 U/L (7-52); Albumin Globulin Ratio 0.6 (0.9-2); Alkaline Phosphatase 110 U/L (34-104); Aspartate Aminotransferase 30 U/L (13-39); BUN Creatinine Ratio 26.4 (10-20); Blood Urea Nitrogen 39 mg/dl (6-23); Est GFR (African American) 52.1 ml/min; Globulin 3.2 gm/dl (2.5-4.0); Glucose 94 mg/dl (70-99(Fasting)); Total Protein 5.2 gm/dl (6.0-8.3)
[2023-06-27] MEDS ORDERED: SODIUM CHLORIDE 0.9% 500 ML IV ONE (13:48)
--- NOTE | 2023-06-27 13:49 | History & Physical Report ---
Date of Service June 27, 2023 Assessment & Plan (1) Acute ischemic multifocal multiple vascular territories stroke: Plan: Acute multifocal ischemic stroke Patient had an outpatient MRI ordered for progressive weakness and trauma. This was performed the day of admission at approximately 11 AM, patient referred to ER due to acute findings - MRI-B: 1. Numerous scattered subcentimeter multivascular distribution of acute infarcts are noted within the frontal, parietal, and occipital lobes and cerebellum. A proximal thromboembolic source is considered most likely. This study was made as a call report. Patient denies acute vision, focal strength changes. Does have increased word finding difficulty but no aphasia or dysarthria, and both patient and son endorse that he has had chronic decline but no acute change last 48 hours. Discussed with neuro. Given this he is not a TNKase candidate, will give full dose aspirin and continue remaining stroke work-up. Patient given full dose aspirin, did take a morning baby aspirin so remaining 243 milligrams to make full dose aspirin ordered CTA: left carotid artery bifurcation with approximately 75% stenosis of the ICA. Vascular is consulted for CVA with significant stenosis; stroke DDx inc ludes tumor, septic emboli and cardioembolic DAPT not recommended due to bleeding risk, and patient is pending bronchoscopy with EBUS for evaluation of suspected malignancy/complicated infection as noted - Echo + bubble study pending. No hx afib. Sinus on admit (2) Lung mass: Plan: Lung mass, complicated effusion Extensive smoking history, more than 50 pack years in remission for the last 3 to 4 years This was not noted on prior x-rays,? Interval development versus previously obscured by cardiac silhouette. - Chronic intermittent cough, no hemoptysis or change in sputum production. Occasional aspiration events in the past, no recent change in cough CTchest with contrast suspicious for bronchogenic malignancy with tumor thrombus. Patient covered with broad-spectrum antibiotics,cefepime/flagyl w. MRSA pending. If MRSA+ --> vanc vs linezolid for coverage. If Cr stable prefer vanc due to concurrent citalopram use Pending EBUS with CC pulm. DDx includes complicated pneumonia with history of recurrent aspiration. No fluid easily accessible by ultrasound-guided thoracentesis N.p.o. (3) IHSAN (acute kidney injury): Plan: Baseline creatinine around 1.11.4 Creatinine on admission 1.48, patient prehydrated for CTA/CTs with contrast. Risk of contrast nephropathy discussed, benefit and necessity during stroke eval and with lung mass exceeds risk Patient does have upper and lower extremity swelling with severely depleted albumin of 2.0. Echo pending, no prior history of heart failure. BUN/creatinine is volume contracted,? Edema due to third spacing vs obstruction with tumor/mass rather than volume overload. Patient received rehydration and IVF in the ER, no oxygen requirement or evidence of pulmonary edema. We will keep n.p.o. and continue IV FM while npo - BMP daily (4) GERD (gastroesophageal reflux disease): Plan: Continue Protonix (5) HLD (hyperlipidemia): Plan: Simvastatin converted to atorvastatin 40 mg when able to tolerate/meds (6) BPH w urinary obs/LUTS: Plan: Continue Flomax/finasteride Bladder scan every shift, if PVR greater than 350 cath (7) Tremor of both hands: Plan: CVA as nosted (8) Tobacco abuse: Plan: In remission for 3 years, no patch required. No outpatietn chest CT for comparison per pt/son. See above Plan Diet: N.p.o. pending speech eval and while awaiting EBUS CODE STATUS: Full code per patient and POA at bedside Disposition: PCU History of Present Illness Primary Care Provider: Chani Burrell Miquel Fong, 78yo M who presnts with progressive weakness over 2 years acutely worse for ~2 months. Pt is no longer able to perform ADS. 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 Miquel is seen at the bedside with his son present. He is oriented to season but not to year and is off on month by 1 (thinks it is July rather than June) and follows 1 and two-step commands with increased latency. History is somewhat limited due to mental status, collateral was obtained from son who is at bedside. Miquel has had progressive decline over the preceding 2 years and has had multiple falls with none in the last month, and an increase in periodic tremors of the hands. He and his sons deny focal weakness, but his leg strength has progressively declined bilaterally to the point where he had been having falls. He has had 1 hip fracture repair to the surgery, reports this was on the right. Over the last month voice has been shaky, has had intermittent stuttering although no dysarthria. Increased word finding latency but denies expressive and receptive aphasia. He has not had chest pain at any point. No known history of A-fib. He has not had any palpitations. Miquel is a former smoker, no current tobacco use but smoked around 1 pack/day for most of his life, quit 3-4 years ago. No prior history of stroke He was evaluated by neurology as an outpatient, due to his tremor progressive decline and confusion with word finding difficulty had an MRI ordered as outpt. MRI was performed at 11am, acute CVAs were noted, and pt was referred to ER. Denies change in breathing, has a history of tobacco use with intermittent cough on and off but no recent exacerbations. Does not notice provoking or remitting factors. Medical History: Reviewed Medications: Reviewed Surgical History: Reviewed Family history: Reviewed Allergies: Reviewed Social History: Former extensive tobacco use. No etoh use. Code Status: Full per pt. STEPHANE Pagan is POA, Pt is and is Lupe. Allergies Allergy/AdvReac Type Severity Reaction Status Date / Time No Known Allergies Allergy Unverified 06/27/23 13:40 Home Medications Medication Instructions Recorded Confirmed Type aspirin 81 mg tablet,delayed 81 mg PO QAM 03/09/20 06/27/23 History release (Paulo Low Dose Aspirin) citalopram 20 mg tablet 20 mg PO QPM 03/09/20 06/27/23 History simvastatin 20 mg tablet 20 mg PO QPM 03/09/20 06/27/23 History finasteride 5 mg tablet 5 mg PO QPM 11/12/22 06/27/23 History garlic 1,000 mg capsule 1,000 mg PO QAM 11/12/22 06/27/23 History meloxicam 7.5 mg tablet 7.5 mg PO HS 11/12/22 06/27/23 History pantoprazole 40 mg tablet,delayed 40 mg PO DAILY 11/12/22 06/27/23 History release tamsulosin 0.4 mg capsule 0.4 mg PO HS 11/12/22 06/27/23 History potassium chloride 10 mEq 10 meq PO DAILY 06/13/23 06/27/23 History tablet,extended release furosemide 20 mg tablet 20 mg PO QAM 06/27/23 06/27/23 History furosemide 20 mg tablet 20 mg PO QPM PRN Edema 06/27/23 06/27/23 History mirabegron 25 mg tablet,extended 25 mg PO QAM 06/27/23 06/27/23 History release 24 hr (Myrbetriq) multivitamin 1 tab PO QAM 06/27/23 06/27/23 History vitamin A-vitamin C-vit E-min 1 tab PO DAILY 06/27/23 06/27/23 History tablet Past Med/Surg History Medical History Depression GERD (gastroesophageal reflux disease) HLD (hyperlipidemia) CKD (chronic kidney disease), stage III BPH (benign prostatic hyperplasia) Fall Surgical History Status post hip surgery Family History Other Cancer Social History Smoking Status: Former smoker Tobacco Type: Cigarettes Hx Alcohol Use: No Hx Substance Use: No Preferred Language: Bulgarian Communication Ability: Effective Sap Payroll Consultant Required: No Beliefs That Will Affect Care: None Current Living Situation: Spouse and Family Feels Safe at Home: Yes Assistive Devices: Denture - Upper, Denture - Lower, Glasses and Walker Physical Exam Physical Exam: General: Oriented to name, oriented to July (1 month off), not oriented to year. Is oriented to place/[place]. Increase speech latency but without dysarthria or aphasia. Follows one-step commands, increased confusion and difficulty following two-step commands HEENT: Atraumatic, normocephalic. Pulm: clear, diminished R>L, intermittent cough coarse Cardiac: RRR, -mrg. Radial pulses intact and symmetrical. Abdominal: Nontender, nondistended, soft. BS present. Ext: LUE>RUE with pitting edema. LE with 2+ pitting edema bilaterally. Strength testing slightly limited by engagement, but powered bridge specialist strength, elbow flexion, dorsiflexion 5/5 bilaterally. Patient does endorse sensation to soft touch in hands and feet, does confuses right and left but is able to raise the hand that he feels sensation on to identify appropriate sensation of soft touch in the right and left feet. CRANIAL NERVES: II: Pupils equal and constricted but reactive, no relative afferent pupillary defect, no VF cuts III, IV, : EOM intact, no gaze preference or deviation, no nystagmus. V: normal sensation in V1, V2, and V3 segments bilaterally VII: no asymmetry, no nasolabial fold flattening VIII: normal hearing to speech IX, X: normal palatal elevation, no uvular deviation XI: 5/5 head turn and 5/5 shoulder shrug bilaterally XII: midline tongue protrusion MOTOR: RUE: 5/5 Elbow flexion/extension, wrist flexi on/extension 5/5 powered bridge specialist strength, finger flexion/extens ion, interosseus LUE: 5/5 Elbow flexion/extension, wrist flexi on/extension 5/5 powered bridge specialist strength, finger flexion/extens ion, interosseus RLE: 5/5 hip flexion, plantarflexion LLE: 5/5 hip flexion, plantarflexion REFLEXES: no clonus COORD: Tremulous [id number] with poor coordination, difficult due to complete due to some confusion during exam Results & Data Results & Data Vital Signs (Past 12 Hours) Vital Signs Temp Pulse Pulse Resp BP Pulse Ox O2 Del Method 06/27/23 12:46 74 06/27/23 12:44 93 Room Air 06/27/23 12:44 93 Room Air 06/27/23 12:44 77 20 94 Room Air 06/27/23 12:01 36.8 C 97 H 18 120/77 93 Room Air PG Care Time/CCT Total # of Minutes Spent Total Time Spent with Patient: Total time spent is greater than 50% in coordination of care (as documented) at patient's floor/unit and/or counseling patient: Coding Level of Care Code 68865 INT INP/OBS CARE 3/75MIN Diagnoses Acute ischemic multifocal multiple vascular territories stroke I63.89 Lung mass R91.8 IHSAN (acute kidney injury) N17.9 GERD (gastroesophageal reflux disease) K21.9 HLD (hyperlipidemia) E78.5 BPH w urinary obs/LUTS N40.1; N13.8 Tremor of both hands R25.1 Tobacco abuse Z72.0
[2023-06-27] MEDS ORDERED: ASPIRIN 81 MG CHEW PO STA (14:03)
[2023-06-27] MEDS ORDERED: OPTIRAY 320 500ml IV ONE (14:33)
--- NOTE | 2023-06-27 14:53 | CT Scan Report ---
CT angio neck with con CLINICAL HISTORY: Stroke on MRI TECHNIQUE: Contiguous axial CT images of the head were acquired from the base of the skull to the frankie javier without intravenous contrast administration. CT angiography of the head and neck was performed f ollowing intravenous administration of iodinated contrast. Coronal and sagittal MIPS were obtained fr om the axial data set and were submitted for review. Automated dose lowering techniques and/or adjus tment according to patient size were utilized for this examination. All measurements were calculated based on NASCET criteria. Comparison: None available at the time of this dictation. FINDINGS: Emphysema is seen. CTA Neck: A 3 vessel aortic arch is shown. Hemodynamically significant stenosis is seen in the left carotid artery bifurcation with approximately 75% stenosis of the ICA. Nonhemodynamically significant stenosis is seen in the right carotid bifurcation. The right vertebral artery is dominant. IMPRESSION: Hemodynamically significant stenosis is seen in the left ICA. Additional findings as above. Assessment of stenosis of the internal carotid arteries is based on NASCET criteria. ACT 112: Negative or not required by law. Electronically signed by: Darek Gray M.D. 06/27/2023 2:50 PM
--- NOTE | 2023-06-27 14:57 | CT Scan Report ---
CT OF THE CHEST WITH IV CONTRAST CLINICAL HISTORY: Lung mass. COMPARISON STUDY: Chest radiograph performed earlier today. TECHNIQUE: Following IV administration of 112 mL of Optiray, helical axial images of the chest were obtained. Sagittal and coronal reconstructions were viewed as well as maximal intensity projections on an independent 3-D workstation. Automated exposure control was utilized for the study. A dose lo wering technique was utilized adhering to the principles of ALARA. CT DOSE: 885.56 mGy.cm FINDINGS: There is mild emphysema. No enlarged axillary, mediastinal or hilar lymph nodes are presen t. The heart is mildly enlarged. There is moderate coronary artery calcification. No pericardial effu thao is present. Mild anasarca is noted. There is no pneumothorax. Small bilateral pleural effusions, right larger than left, are noted. There is a 5.9 x 4.6 cm mass within the superior segment of the r ight lower lobe. This demonstrates peripheral enhancement with central hypodensity suggestive of necr osis. This mass occludes the bronchus to the superior segment of the right lower lobe. There is an ad jacent 1.7 x 0.7 cm hypodense focus anterior to the mass. This represents thrombus. On this exam, it is difficult to determine whether this is arterial or venous. No suspicious lesions within the visual ized skeletal structures are present. Visualized portions of the upper abdomen are unremarkable. T11 and T12 compression fractures are likely old. There are several old left rib fractures. IMPRESSION: 1. 5.9 x 4.6 cm mass within the superior segment of the right lower lobe, as described above. This oc cludes the bronchus to the superior segment of the right lower lobe and is highly suggestive of bronc hogenic carcinoma. Pulmonary consultation is recommended. 2. 1.7 x 0.7 cm hypodense focus anterior to the mass consistent with thrombus. It is difficult to det ermine whether this is arterial or venous in location this could reflect bland or tumor thrombus. Fol low-up PE protocol CT could be obtained for further evaluation. 3. No thoracic lymphadenopathy. 4. Small bilateral pleural effusions, right larger than left. 5. Emphysema. ACT 112: Positive. There are findings on this exam that require communication between the performing entity and the patient following Patient Test Result Information Act ([place] Act 112) guidelines. Electronically signed by: Luis Eduardo De Los Santos M.D. 06/27/2023 2:55 PM
--- NOTE | 2023-06-27 15:00 | CT Scan Report ---
CT angio head w con CLINICAL HISTORY: 78 years-old Male with Stroke on MRI. Acute strokelike symptoms COMPARISON STUDY: Brain MRI of same day TECHNIQUE: Following the IV administration of 112 cc of Optiray, CT angiogram of the brain was perfor med from the skull base to the vertex. Images are reviewed in the axial, sagittal, and coronal planes . 3-D MIPS images are created and assessed. IV contrast was administered without complication. All me asurements were obtained according to NASCET criteria. A dose lowering technique was utilized adherin g to the principles of ALARA. FINDINGS: CT ANGIOGRAM OF THE BRAIN: Atherosclerosis of the imaged internal carotid arteries which are patent without high-grade stenosis. The bilateral anterior and middle cerebral arteries are also patent. The vertebrobasilar system and posterior cerebral arteries are widely patent. There is no aneurysm, high-grade stenosis, or proximal branch occlusion identified. Dural sinuses appear patent. The numerous tiny acute subcentimeter infarcts in the brain are better seen on the brain MRI of same day. 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 Delivery Crew Member localizer images demonstrate pulmonary opacities, better seen on the chest CT of same day. IMPRESSION: 1. Unremarkable CTA. 2. Please refer to the brain MRI of same day for discussion of the acute cerebral and cerebellar infa rcts. ACT 112: Negative or not required by law. The above report was generated using voice recognition software. It may contain grammatical, syntax o r spelling errors. Electronically signed by: Jorden Francois M.D. 06/27/2023 2:58 PM
--- NOTE | 2023-06-27 15:11 | Electrocardiogram Report ---
Test Reason : Blood Pressure : / mmHG Vent. Rate : 073 BPM Atrial Rate : 073 BPM P-R Int : 148 ms QRS Dur : 076 ms QT Int : 406 ms P-R-T Axes : 071 036 007 degrees QTc Int : 447 ms Normal sinus rhythm Normal ECG When compared with ECG of 12-NOV-2022 16:04, No significant change Confirmed by Dru Ovalle ([id number]) on 06/27/2023 3:11:02 PM Referred By: REFERRED SELF Confirmed By:Dru Ovalle
[2023-06-27 15:47] LABS: Hematocrit (blood only) 39.5 % (42.0-52.0); Hemoglobin 13.2 g/dl (14.0-18.0); Mean Corpuscular Hemoglobin 28.6 pg (25.0-34.0); Mean Corpuscular Hgb Conc 33.4 g/dL (32.0-36.0); Mean Corpuscular Volume 85.7 fL (80.0-100.0); Platelet Count 228 K/uL (130-400); RDW Coefficient of Variation 15.6 % (11.5-14.5); RDW Standard Deviation 48.9 fL (36.4-46.3); Red Blood Count 4.61 M/uL (4.70-6.10); White Blood Count 5.39 K/ul (4.8-10.8)
[2023-06-27 15:50] LABS: INR 1.1 (0.9-1.1); Partial Thromboplastin Ratio 1.2; Partial Thromboplastin Time 33.4 Seconds (21.0-31.0); Prothrombin Time 11.6 Seconds (9.0-12.0)
--- NOTE | 2023-06-27 16:03 | Pulmonary Consultation ---
Date of Consultation June 27, 2023 Assessment & Plan (1) Lung mass: (2) Tobacco abuse: (3) Acute ischemic multifocal multiple vascular territories stroke: (4) Multiple falls: (5) Leg DVT (deep venous thromboembolism), chronic: (6) CKD (chronic kidney disease), stage III: Plan 78 year old male with 2 year history of progressive LE weakness, confusion, and multiple falls presents to ED after an outpatient MRI revealed bilateral acute infarcts suspicious for a proximal thromboembolic source. Incidentally on admission chest CT showed a RLL rim-enhanced mass with a suspected adjacent arterial vs venous thrombus. Discussed at length with patient and POA son-in-law at the bedside. Suspect infection possibly an abscess in setting of recurrent aspirations vs malignancy. Empiric antibiotic is recommended with gram negative and anaerobic coverage. Follow up sputum and blood cultures. Recommend speech and swallow evaluation. POCUS showed minimal pleural effusion not amenable to diagnostic drainage. He will need diagnostic bronchoscopy, less certain is the timeline which could be done during this admission or as outpatient deciding based on his response to antibiotic treatment. At our discussion today we decided to wait and see first the plan from neurology. For suspected intra-pulmonary thrombus radiology recommended CTA for further evaluation. Agree but will have to wait a couple of days as patient with CKD and just had contrast today. Either way he would not be a candidate for full anticoagulation in setting of bilateral acute infarcts. in the mean time, can check bilateral LE doppler. Thank you very much for allowing me to participate in the care of your patient. Please call with any questions. Will continue to follow. Discussed with ED attending. History of Present Illness History of Present Illness 78yo M presents with progressive weakness over 2 years acutely worse in the past year. Pt is no longer able to perform ADS and has had multiple falls. MRI as outpatient shows multivascular acute infarcts consistent with thromboembolic stroke and he was prompted to go to the ED. History is somewhat limited due to mental status, also spoke with son who is at bedside. He is a former heavy smoker quit 3-4 years ago. He has a chronic cough, no change. He has been diagnosed with asthma, has an inhaler but does not use it regularly. He denies history of pneumonia. (+) history of chronic DVT, not on AC due to fall risk. He is sedentary his activities limited by unsteady gait and leg weakness. Family reports witnessed choking with eating. Allergies Allergy/AdvReac Type Severity Reaction Status Date / Time No Known Allergies Allergy Unverified 06/27/23 13:40 Home Medications Medication Instructions Recorded Confirmed Type aspirin 81 mg tablet,delayed 81 mg PO QAM 03/09/20 06/27/23 History release (Paulo Low Dose Aspirin) citalopram 20 mg tablet 20 mg PO QPM 03/09/20 06/27/23 History simvastatin 20 mg tablet 20 mg PO QPM 03/09/20 06/27/23 History finasteride 5 mg tablet 5 mg PO QPM 11/12/22 06/27/23 History garlic 1,000 mg capsule 1,000 mg PO QAM 11/12/22 06/27/23 History meloxicam 7.5 mg tablet 7.5 mg PO HS 11/12/22 06/27/23 History pantoprazole 40 mg tablet,delayed 40 mg PO DAILY 11/12/22 06/27/23 History release tamsulosin 0.4 mg capsule 0.4 mg PO HS 11/12/22 06/27/23 History potassium chloride 10 mEq 10 meq PO DAILY 06/13/23 06/27/23 History tablet,extended release furosemide 20 mg tablet 20 mg PO QAM 06/27/23 06/27/23 History furosemide 20 mg tablet 20 mg PO QPM PRN Edema 06/27/23 06/27/23 History mirabegron 25 mg tablet,extended 25 mg PO QAM 06/27/23 06/27/23 History release 24 hr (Myrbetriq) multivitamin 1 tab PO QAM 06/27/23 06/27/23 History vitamin A-vitamin C-vit E-min 1 tab PO DAILY 06/27/23 06/27/23 History tablet Patient History Medical History Depression GERD (gastroesophageal reflux disease) HLD (hyperlipidemia) CKD (chronic kidney disease), stage III BPH (benign prostatic hyperplasia) Fall Surgical History Status post hip surgery Family History Other Cancer Social History Smoking Status: Former smoker Tobacco Type: Cigarettes Hx Alcohol Use: No Hx Substance Use: No Preferred Language: Japanese Communication Ability: Effective Cheese Grader Required: No Beliefs That Will Affect Care: None Current Living Situation: Spouse and Family Feels Safe at Home: Yes Assistive Devices: Denture - Upper, Denture - Lower, Glasses and Walker Review of Systems Review of Systems: as per HPI. Respiratory: + cough; no dyspnea and no sputum produc tion Cardiovascular: + edema; no chest pain and no chest pain with activity Gastrointestinal: no abdominal pain and no nausea Neurologic: as per Subjective / HPI Physical Exam Constitutional: awake, easily distracted. Respiratory: Auscultation: + diminished lung sounds and + rhonchi Cardiovascular: Rate/Rhythm: regular rate and regular rhythm Extremities: + edema LUE swelling, no redness Neurologic: CN's II-XI intact bilaterally, moves all extremities and awake Speech / Cognition: + abnormal cognition Psychiatric: Orientation: alert and oriented to person Cognition: language grossly intact Insight: + limited insight Results & Data Results & Data Vital Signs (Past 12 Hours) Vital Signs Temp Pulse Pulse Resp BP Pulse Ox O2 Del Method 06/27/23 12:46 74 06/27/23 12:44 93 Room Air 06/27/23 12:44 93 Room Air 06/27/23 12:44 77 20 94 Room Air 06/27/23 12:01 36.8 C 97 H 18 120/77 93 Room Air Coding Level of Care Code 81032 INT INP/OBS CARE 3/75MIN Diagnoses Lung mass R91.8 Tobacco abuse Z72.0 Acute ischemic multifocal multiple vascular territories stroke I63.89 Multiple falls R29.6 Leg DVT (deep venous thromboembolism), chronic I82.509 CKD (chronic kidney disease), stage III N18.30
[2023-06-27] MEDS: PLASMA-LYTE A 1,000 ML IV SCH (16:18)
--- NOTE | 2023-06-27 17:04 | XCELERA ---
[id number]
[2023-06-27] MEDS ORDERED: CEFEPIME 20 ML IV STA (17:35)
[2023-06-27] MEDS ORDERED: metroNIDAZOLE 500 MG/100 ML BAG IV STA (17:36)
[2023-06-27] MEDS ORDERED: PHARMACIST DISCHARGE MED REC CONSULT PRN (18:53)
--- NOTE | 2023-06-27 22:35 | Ultrasound Report ---
Exam(s): US VENOUS LEFT UPPER EXTREMITY EXAM: US Duplex Left Upper Extremity Veins CLINICAL HISTORY: Reason for exam: LUE swelling. TECHNIQUE: Real-time duplex ultrasound scan of the left upper extremity veins integrating B-mode two-dimensional vascular structure, Doppler spectral analysis, color flow Doppler imaging and compression. COMPARISON: No relevant prior studies available. FINDINGS: Deep veins: No DVT in the internal jugular, subclavian, axillary, or brachial veins. Superficial veins: No thrombus in the visualized basilic and cephalic veins. Soft tissues: No acute findings. IMPRESSION: No thrombus in the left upper extremity. Electronically signed by: Joni Monique MD 06/27/23 22:34 PM
--- NOTE | 2023-06-27 22:36 | Ultrasound Report ---
Exam(s): US VENOUS BILATERAL LOWER EXTREMITIES EXAM: US Duplex Bilateral Lower Extremities Veins CLINICAL HISTORY: Reason for exam: rule out DVT. TECHNIQUE: Real-time duplex ultrasound scan of the bilateral lower extremity veins integrating B-mode two-dimensional vascular structure, Doppler spectral analysis, color flow Doppler imaging and compression. COMPARISON: No relevant prior studies available. FINDINGS: Right deep veins: Unremarkable. The visualized deep veins of the right lower extremity are compressible with color flow. No visualized thrombus. Right superficial veins: Unremarkable. Left deep veins: Unremarkable. The visualized deep veins of the left lower extremity are compressible with color flow. No visualized thrombus. Left superficial veins: Unremarkable. Soft tissues: No acute findings. IMPRESSION: No DVT within the bilateral lower extremities. Electronically signed by: Joni Monique MD 06/27/23 22:35 PM
[2023-06-28] MEDS: metroNIDAZOLE 500 MG/100 ML BAG IV SCH ×3 (01:51→17:54)
[2023-06-28] MEDS: PLASMA-LYTE A 1,000 ML IV SCH ×2 (06:16→17:54)
[2023-06-28] MEDS: CEFEPIME 2,000 MG in SYRINGE 0 ML IV SCH ×2 (06:17→17:54)
[2023-06-28 07:45] LABS: Basophils # (auto) 0.02 K/uL (0.00-0.20); Basophils % (auto) 0.4 %; Eosinophils # (auto) 0.16 K/uL (0.00-0.50); Eosinophils % (auto) 3.2 %; Hematocrit (blood only) 37.2 % (42.0-52.0); Hemoglobin 12.3 g/dl (14.0-18.0); Immature Granulocytes # (auto) 0.01 K/uL (0.01-0.20); Immature Granulocytes % (auto) 0.2 %; Lymphocytes # (auto) 0.71 K/uL (1.20-3.40); Lymphocytes % (auto) 14.3 %; Mean Corpuscular Hemoglobin 28.5 pg (25.0-34.0); Mean Corpuscular Hgb Conc 33.1 g/dL (32.0-36.0); Mean Corpuscular Volume 86.1 fL (80.0-100.0); Mean Platelet Volume 10.4 fL (9.4-12.4); Monocytes # (auto) 0.48 K/uL (0.11-0.59); Monocytes % (auto) 9.7 %; Neutrophils # (auto) 3.58 K/uL (1.40-6.50); Neutrophils % (auto) 72.2 %; Platelet Count 240 K/uL (130-400); RDW Coefficient of Variation 15.9 % (11.5-14.5); RDW Standard Deviation 49.9 fL (36.4-46.3); Red Blood Count 4.32 M/uL (4.70-6.10); White Blood Count 4.96 K/ul (4.8-10.8)
[2023-06-28 08:04] LABS: Calcium 8.4 mg/dl (8.6-10.3); Potassium 4.3 mmol/L (3.5-5.1)
[2023-06-28 08:10] LABS: Chol HDL Ratio 4.4 (0-5); Creatinine Clr Calc Pharmacy 41.2 ml/min; Est GFR (African American) 51.3 ml/min; Est GFR (Non-African American) 44.3 ml/min
[2023-06-28 08:14] LABS: Estimated Average Glucose 123 mg/dl; Hemoglobin A1C 5.9 % (4.5-5.6)
[2023-06-28] MEDS: ATORVASTATIN 40 MG TAB PO SCH (08:47)
[2023-06-28] MEDS: ASPIRIN 81 MG ECTAB PO SCH (08:47)
--- NOTE | 2023-06-28 10:32 | Neurology Consultation ---
Date of Consultation June 28, 2023 Assessment & Plan (1) Acute ischemic multifocal multiple vascular territories stroke: (2) Lung mass: (3) Left carotid stenosis: Plan 78-year-old male with multifocal subcentimeter embolic infarcts in multiple vascular territories, involving both cerebellar hemispheres, bilateral occipital lobes, and bilateral frontal lobes. A proximal thromboembolic/cardioembolic event strongly suggested by stroke distribution. Patient also has newly diagnosed lung mass involving the right lower lobe with adjacent thrombus. Imaging suggestive of bronchogenic carcinoma. Has also been seen by pulmonology who considered abscess and recurrent aspiration. Current plan is for antibiotic treatment followed by diagnostic bronchoscopy. A CTA of the chest has also been recommended. History notable for tobacco abuse, hyperlipidemia, and chronic ki dney disease. In light of pending need for bronchoscopy, biopsy, in the setting of suspected bronchogenic carcinoma, would not recommend anticoagulation at this time. Would continue with aspirin 81 mg/day. Agree with switching from simvastatin to atorvastatin as ordered. Goal LDL going forward 70 or less. Continue monitoring of blood pressure. Current blood pressure appropriate, without need for antihypertensives. Would recommend continued cardiac monitoring. Would consider 30-day mobile cardiac outpatient telemetry. However, if patient is found to have atrial fibrillation, would need to balance risk of anticoagulation with new diagnosis of probable bronchogenic carcinoma, and need for biopsy and possibly surgical intervention. As above, a CTA of the chest is pending as well, if he does have evidence of pulmonary embolism, would of course need to reconsider anticoagulation. There is no specific neurologic contraindication to anticoagulating this patient as there is no evidence of [employer] hemorrhage and the observed scattered embolic infarcts are rather small and without associated cytotoxic edema. Patient also has a 75% stenosis at the left carotid artery bifurcation on CTA. This vascular lesion is incidental and would not be responsible for his multifocal, multi vascular territory embolic infarct. Would recommend continued medical therapy, aspirin and atorvastatin. Patient does appear mildly confused, he exhibits slow processing speed, speech is nondysarthric and not aphasic. He does not have an obvious visual field deficit with confrontation testing, he does not have a facial droop or hemiparesis. He may have a mild underlying dementia although difficult to determine in the context of his acute medical illness. He does not appear to have Parkinson's disease. History of Present Illness Reason for Consultation: stroke Requesting Physician: Tanmay Attending Physician: Ruth Villanueva MD History of Present Illness The patient is a 78-year-old male who is seen at the [facility] outpatient neurology clinic on June 13, 2023 for initial assessment of tremors and ambulatory dysfunction occurring over the previous year. A brain MRI was recommended at that time and was completed yesterday at [facility], revealing multiple scattered subcentimeter acute infarcts within the frontal, parietal, occipital, and cerebellar hemispheres, bilateral distribution, embolic appearance. I did independently review these images. The patient was subsequently referred to the emergency department for further evaluation and management. He has history of progressive weakness, ambulatory dysfunction, and tremors was again noted, as well as confusion. He underwent additional imaging including CT angiography of the head and neck. CTA of the neck revealed a 75% stenosis of the internal carotid artery bifurcation. CTA of the head was unremarkable. I independently reviewed these images as well. A chest x-ray had revealed a 7.9 cm right infrahilar mass. A follow-up CT of the chest revealed a mass within the superior segment of the right lower lobe with occlusion of the bronchus, highly suggestive of bronchogenic carcinoma. There was an associated thrombus as well. Lower extremity ultrasound negative for DVT. Patient has been seen by pulmonology regarding the lung mass, history also notable for tobacco abuse and chronic kidney disease, stage III. Planning for antibiotic treatment and bronchoscopy. An echocardiogram completed yesterday revealed low normal left ventricular systolic function, EF 50 to 55%, no wall motion abnormality, concentric LVH, left atrium moderately dilated, interatrial septum intact, moderate pulmonary hypertension. Currently, the patient is somewhat confused, he is an unreliable historian. He denies headache, vision loss, focal weakness, or change in speech. Allergies Allergy/AdvReac Type Severity Reaction Status Date / Time No Known Allergies Allergy Unverified 06/27/23 13:40 Home Medications Medication Instructions Recorded Confirmed Type aspirin 81 mg tablet,delayed 81 mg PO QAM 03/09/20 06/27/23 History release (Paulo Low Dose Aspirin) citalopram 20 mg tablet 20 mg PO QPM 03/09/20 06/27/23 History simvastatin 20 mg tablet 20 mg PO QPM 03/09/20 06/27/23 History finasteride 5 mg tablet 5 mg PO QPM 11/12/22 06/27/23 History garlic 1,000 mg capsule 1,000 mg PO QAM 11/12/22 06/27/23 History meloxicam 7.5 mg tablet 7.5 mg PO HS 11/12/22 06/27/23 History pantoprazole 40 mg tablet,delayed 40 mg PO DAILY 11/12/22 06/27/23 History release tamsulosin 0.4 mg capsule 0.4 mg PO HS 11/12/22 06/27/23 History potassium chloride 10 mEq 10 meq PO DAILY 06/13/23 06/27/23 History tablet,extended release furosemide 20 mg tablet 20 mg PO QAM 06/27/23 06/27/23 History furosemide 20 mg tablet 20 mg PO QPM PRN Edema 06/27/23 06/27/23 History mirabegron 25 mg tablet,extended 25 mg PO QAM 06/27/23 06/27/23 History release 24 hr (Myrbetriq) multivitamin 1 tab PO QAM 06/27/23 06/27/23 History vitamin A-vitamin C-vit E-min 1 tab PO DAILY 06/27/23 06/27/23 History tablet Patient History Medical History Depression GERD (gastroesophageal reflux disease) HLD (hyperlipidemia) CKD (chronic kidney disease), stage III BPH (benign prostatic hyperplasia) Fall Surgical History Status post hip surgery Family History Other Cancer Social History Smoking Status: Former smoker Tobacco Type: Cigarettes Second Hand Exposure: No; Do You Dip or Chew Tobacco: No; Hx Alcohol Use: No Hx Substance Use: No Preferred Language: Turkmen Communication Ability: Effective Selling Underwriter Required: No Beliefs That Will Affect Care: None Current Living Situation: Spouse Feels Safe at Home: Yes Safety Concerns: Feels Safe At This Time Assistive Devices: Denture - Upper, Denture - Lower, Glasses, Hearing Aid - Bilateral and Walker Review of Systems Review of Systems: Review of systems seems somewhat unreliable due to poor patient attention, see HPI. Exam (Neuro) Constitutional: well developed; no acute distress Eyes: normal visual bain by confrontation, PERRL and EOM intact bilaterally Neurologic: Oriented to:: Person and Place; negative Time Memory: Remote Intact; negative Short Term Intact Attention: Span Intact; negative Concentration Intact Speech Fluency: Slowed; negative Dysarthria or Dysfluency Speech Aphasia: negative Aphasia Fund of Knowledge: Past History and Vocabulary; negative Current Events Cranial Nerves: Normal II, III, IV, , V, VII, VIII, IX, X, XI and XII Motor Strength: Normal Lower Extremities and Normal Upper Extremities; negative Pronator Drift or Hemiparesis Muscle Bulk/Involuntary Movements: No Involuntary Movements; negative Muscle Atrophy Sensation: Light Touch Intact, Pain/Temperature Intact and Proprioception Intact Coordination: Dysdiadochokinesia; negative Finger-Nose Abnormal or Heel-Harris Abnormal Deep Tendon Reflexes: Rt Triceps: 2+, Lt Triceps: 2+, Rt Biceps: 2+, Lt Biceps: 2+, Rt Brachioradialis: 2+, Lt Brachioradialis: 2+, Rt Patellar: 2+, Lt Patellar: 2+, Rt Ankle: 1+ and Lt Ankle: 1+ Special Tests: Babinski Present Details: Gait cannot be tested Results & Data Vital Signs (Past 12 Hours) Vital Signs Temp Pulse Pulse Resp BP Pulse Ox O2 Del Method 06/28/23 07:34 36.9 C 87 18 114/91 97 Room Air 06/27/23 23:12 82 06/27/23 23:03 37 C 72 121/55 L 96 Room Air 06/27/23 22:09 36.6 C 77 20 175/103 H 96 Room Air Laboratory Results WBC 4.96, hemoglobin 12.3, hematocrit 37.2, platelet count 240, sodium 136, potassium 4.3, BUN 36, creatinine 1.50, glucose 76, hemoglobin A1c 5.9, calcium 8.4, magnesium 2.0, AST 30, ALT 19, triglycerides 93, cholesterol 241, LDL 167, HDL 55 Diagnostic Findings MRI of the brain, CTA of the head and neck are as described above in the HPI, I independently reviewed these images. Echocardiography as described in the HPI. Electrocardiogram reveals normal sinus rhythm, 73 bpm. PG Care Time/CCT Total # of Minutes Spent Total Time Spent with Patient: Total time spent is greater than 50% in coordination of care (as documented) at patient's floor/unit and/or counseling patient: Coding Level of Care Code 54085 INT INP/OBS CARE MIN Diagnoses Acute ischemic multifocal multiple vascular territories stroke I63.89 Lung mass R91.8 Left carotid stenosis I65.22 Time Spent (min) 80
--- NOTE | 2023-06-28 12:25 | Hospitalist Progress Note ---
Date of Service June 28, 2023 Assessment & Plan (1) Acute ischemic multifocal multiple vascular territories stroke: Plan: Acute multifocal ischemic stroke Patient had an outpatient MRI ordered for progressive weakness and trauma. This was performed the day of admission at approximately 11 AM, patient referred to ER due to acute findings - Outpatient MRI showed multifocal subcentimeter embolic infarcts in multiple vascular territories, involving the cerebellar hemispheres bilateral expiratory lobes and bilateral frontal lobes. -Possibly thromboembolic in origin, also given newly diagnosed lung mass with adjacent thrombus. -Neurologist on consult, continue aspirin and statin. -Although CTA showed 75% stenosis at the left carotid artery bifurcation, disease unlikely the reason for his stroke. -Swallow eval was done, showed some silent aspiration -2D echo showed grade 1 diastolic dysfunction, no shunts. -Appreciate neurology recommendations. -Physical therapy (2) Lung mass: Plan: Lung mass, complicated effusion Extensive smoking history, more than 50 pack years in remission for the last 3 to 4 years This was not noted on prior x-rays,? Interval development versus previously obscured by cardiac silhouette. - Chronic intermittent cough, no hemoptysis or change in sputum production. Occasional aspiration events in the past, no recent change in cough CTchest with contrast suspicious for bronchogenic malignancy with tumor thrombus. - Patient covered with broad-spectrum antibiotics,cefepime/flagyl w. MRSA pending. If MRSA+ --> vanc vs linezolid for coverage. -Appreciate pulmonology, plans for bronchoscopy at a later date (3) IHSAN (acute kidney injury): Plan: Baseline creatinine around 1.11.4 Creatinine on admission 1.48, patient prehydrated for CTA/CTs with contrast. Risk of contrast nephropathy discussed, benefit and necessity during stroke eval and with lung mass exceeds risk Patient does have upper and lower extremity swelling with severely depleted albumin of 2.0. Echo pending, no prior history of heart failure. BUN/creatinine is volume contracted,? Edema due to third spacing vs obstruction with tumor/mass rather than volume overload. Patient received rehydration and IVF in the ER, no oxygen requirement or evidence of pulmonary edema. We will keep n.p.o. and continue IV FM while npo - BMP daily (4) GERD (gastroesophageal reflux disease): Plan: Continue Protonix (5) HLD (hyperlipidemia): Plan: Simvastatin converted to atorvastatin 40 mg when able to tolerate/meds (6) BPH w urinary obs/LUTS: Plan: Continue Flomax/finasteride Bladder scan every shift, if PVR greater than 350 cath (7) Tremor of both hands: Plan: CVA as nosted (8) Tobacco abuse: Plan: In remission for 3 years, no patch required. No outpatietn chest CT for comparison per pt/son. See above Plan Diet: N.p.o. pending speech eval and while awaiting EBUS CODE STATUS: Full code per patient and POA at bedside Disposition: PCU Admission and Anticipated Discharge Date Admission Date: June 27, 2023 Subjective patient seen and examined, went for swallow eval which showed silent aspiration Review of Systems Review of Systems: All systems reviewed are negative, apart from the ones contained in the history. Physical Exam 2 Physical Exam: The patient is awake, alert and oriented 3, well developed and well nourished, normocephalic and atraumatic, lying in bed and in no acute distress. HEENT--PERRL, EOMI, mucous membranes and oropharynx mildly dry Neck--supple. No JVD. No bruits. Thyroid normal, trachea midline, no adenopathy. Heart--normal S1 and S2. No murmurs, rubs or gallops. Lungs--clear bilaterally, no respiratory distress, no accessory muscle use. Abdomen--normal bowel sounds and soft. Mild epigastric and left sided abdominal pain Extremities--no cyanosis or clubbing. No edema. Dermatologic--normal skin turgor, normal color, no abnormal lymph nodes, no rash. Neurologic--cranial nerves II through XII grossly intact. Rheumatologic--normal range of motion. Psychiatric--normal affect. Results & Data Results & Data Vital Signs (Past 12 Hours) Vital Signs Temp Pulse Pulse Resp BP Pulse Ox O2 Del Method 06/28/23 10:52 98.4 F 87 16 128/78 89 L Room Air 06/28/23 08:00 68 06/28/23 07:34 98.4 F 87 18 114/91 97 Room Air PG Care Time/CCT Total # of Minutes Spent Total Time Spent with Patient: Total time spent is greater than 50% in coordination of care (as documented) at patient's floor/unit and/or counseling patient: Coding Level of Care Code 52568 SUB INP/OBS CARE 2/35MIN Diagnoses Acute ischemic multifocal multiple vascular territories stroke I63.89 Lung mass R91.8 IHSAN (acute kidney injury) N17.9 GERD (gastroesophageal reflux disease) K21.9 HLD (hyperlipidemia) E78.5 BPH w urinary obs/LUTS N40.1; N13.8 Tremor of both hands R25.1 Tobacco abuse Z72.0 Time Spent (min) 35
--- NOTE | 2023-06-28 12:40 | Pharmacy Report ---
- Date of Service June 28, 2023 - Pharmacy CVA/TIA Medication Review Medications to Prevent Stroke handout has been added to the patients discharge packet. Antiplatelet(s) * aspirin 81mg PO daily Cholesterol * High intensity statin: atorvastatin 80 mg daily DVT Prophylaxis * SCD knee Therapeutic Anticoagulation * No history of Afib/Aflutter noted * newly diagnosed lung mass involving RUL w/ adjacent thrombus- proximal thromboembolic/cardioembolic event suggested per neurology- anticoagulation deferred for now Type 2 Diabetes * Patient does not have T2DM *
--- NOTE | 2023-06-28 13:53 | Pulmonology Progress Note ---
Date of Service June 28, 2023 Assessment & Plan (1) Lung mass: (2) Acute ischemic multifocal multiple vascular territories stroke: (3) CKD (chronic kidney disease), stage III: Chronic kidney disease stage 3 subtype: unspecified whether 3a or 3b Qualified Code(s): N18.30 - Chronic kidney disease, stage 3 unspecified (4) Aspiration into lower respiratory tract: Encounter type: sequela Qualified Code(s): T17.800S - Unspecified foreign body in other parts of respiratory tract causing asphyxiation, sequela (5) Pneumonia: Aspiration pneumonia type: unspecified Laterality: right Lung location: lower lobe of lung Pneumonia type: aspiration pneumonia Qualified Code(s): J69.0 - Pneumonitis due to inhalation of food and vomit Plan 78 year old male with 2 year history of progressive LE weakness, confusion, and multiple falls presents to ED after an outpatient MRI revealed bilateral acute infarcts suspicious for a proximal thromboembolic source. Incidentally on admission chest CT showed a RLL rim-enhancing mass with a suspected adjacent arterial vs venous thrombus. Suspect infection possibly a cavitary lesion in setting of recurrent aspirations vs malignancy. Speech evaluation appreciated which showed moderate dysphagia and silent aspiration. patient is not coughing up phlegm. Blood cultures not drawn on admission, probably low yield at this time. Continue empiric cefepime and flagyl d2. Plan for bronchoscopy tomorrow. Discussed with patient and POA son-in-law Ej. For suspected intra-pulmonary thrombus radiology recommended CTA which we can probably do tomorrow giving another day before he gets additional contrast. LE doppler negative. Neuro consult appreciated. Discussed with neuro and RN. Admission and Anticipated Discharge Date Admission Date: June 27, 2023 Subjective no events overnight. Patient remembers meeting me yesterday but does not remember our discussion about his chest CT or bronchoscopy. Physical Exam Constitutional: average body habitus Respiratory: normal respiratory effort Cardiovascular: Rate/Rhythm: regular rate and regular rhythm Skin: no rashes and no lesions Neurologic: CN's II-XI intact bilaterally and awake Speech / Cognition: + abnormal cognition; no expressive aphasia and no receptive aphasia hard of hearing Results & Data Results & Data Vital Signs (Past 12 Hours) Vital Signs Temp Pulse Pulse Resp BP Pulse Ox O2 Del Method 06/28/23 10:52 36.9 C 87 16 128/78 89 L Room Air 06/28/23 08:00 68 06/28/23 08:00 Room Air 06/28/23 07:34 36.9 C 87 18 114/91 97 Room Air PG Care Time/CCT Total # of Minutes Spent Total Time Spent with Patient: Total time spent is greater than 50% in coordination of care (as documented) at patient's floor/unit and/or counseling patient: Coding Level of Care Code 46625 SUB INP/OBS CARE 2/35MIN Diagnoses Lung mass R91.8 Acute ischemic multifocal multiple vascular territories stroke I63.89 Stage 3 chronic kidney disease, unspecified whether stage 3a or 3b CKD N18.30 Chronic kidney disease stage 3 subtype: unspecified whether 3a or 3b Aspiration into lower respiratory tract, sequela T17.800S Encounter type: sequela Aspiration pneumonia of right lower lobe, unspecified aspiration pneumonia type J69.0 Aspiration pneumonia type: unspecified Laterality: right Lung location: lower lobe of lung Pneumonia type: aspiration pneumonia
--- NOTE | 2023-06-28 17:19 | Fluoroscopy Report ---
MODIFIED BARIUM SWALLOW CLINICAL HISTORY: assess for aspiration COMPARISON STUDY: None. FLUOROSCOPY TIME: 2.47 minutes. Ka, r: 17.1 mGy. TECHNIQUE: A modified barium swallow was performed in conjunction with Speech Pathology. The patient ingested varying consistencies of barium containing material. Video fluoroscopy was performed. FINDINGS: Penetration was noted with multiple swallows. There was a small amount of silent tracheal a spiration with several consistencies. Epiglottic inversion was normal. Laryngeal elevation was normal . There was mild prominence of the cricopharyngeus. No significant esophageal retention was identifie d on this examination. IMPRESSION: 1. Minimal tracheal aspiration with several consistencies. 2. Full recommendations by Speech pathology to follow. ACT 112: Negative or not required by law. Electronically signed by: Luis Eduardo De Los Santos M.D. 06/28/2023 5:16 PM
[2023-06-29] MEDS: metroNIDAZOLE 500 MG/100 ML BAG IV SCH ×3 (01:38→18:33)
[2023-06-29] MEDS: CEFEPIME 2,000 MG in SYRINGE 0 ML IV SCH ×2 (05:56→18:33)
[2023-06-29] MEDS: PLASMA-LYTE A 1,000 ML IV SCH ×2 (05:56→18:36)
[2023-06-29 06:25] LABS: Basophils # (auto) 0.03 K/uL (0.00-0.20); Basophils % (auto) 0.6 %; Eosinophils # (auto) 0.17 K/uL (0.00-0.50); Eosinophils % (auto) 3.4 %; Hematocrit (blood only) 35.2 % (42.0-52.0); Hemoglobin 11.7 g/dl (14.0-18.0); Immature Granulocytes # (auto) 0.01 K/uL (0.01-0.20); Immature Granulocytes % (auto) 0.2 %; Lymphocytes # (auto) 0.74 K/uL (1.20-3.40); Lymphocytes % (auto) 14.6 %; Mean Corpuscular Hemoglobin 28.4 pg (25.0-34.0); Mean Corpuscular Hgb Conc 33.2 g/dL (32.0-36.0); Mean Corpuscular Volume 85.4 fL (80.0-100.0); Mean Platelet Volume 9.9 fL (9.4-12.4); Monocytes # (auto) 0.46 K/uL (0.11-0.59); Monocytes % (auto) 9.1 %; Neutrophils # (auto) 3.66 K/uL (1.40-6.50); Neutrophils % (auto) 72.1 %; Platelet Count 247 K/uL (130-400); RDW Coefficient of Variation 15.9 % (11.5-14.5); RDW Standard Deviation 49.3 fL (36.4-46.3); Red Blood Count 4.12 M/uL (4.70-6.10); White Blood Count 5.07 K/ul (4.8-10.8)
[2023-06-29 06:41] LABS: BUN Creatinine Ratio 20.1 (10-20); Creatinine Clr Calc Pharmacy 40.2 ml/min; Est GFR (African American) 49.7 ml/min; Est GFR (Non-African American) 42.9 ml/min; Potassium 3.9 mmol/L (3.5-5.1)
[2023-06-29] MEDS: ATORVASTATIN 40 MG TAB PO SCH (08:04)
[2023-06-29] MEDS: ASPIRIN 81 MG ECTAB PO SCH (08:04)
--- NOTE | 2023-06-29 10:40 | Communication Note ---
Date of Service: June 29, 2023 BRIEF PALL MED NOTE Consult received/chart reviewed; pt off unit for procedure. A family meeting is needed, attempting to reach family. I will attempt to see patient again tomorrow, full consult note will follow once pt has been seen. Thank you for allowing us to participate in the ongoing care of this patient. Please don't hesitate to call or page with any additional concerns. Dr. Bambi Galvan DNP Director, Palliative Care
--- NOTE | 2023-06-29 11:46 | Hospitalist Progress Note ---
Date of Service June 29, 2023 Assessment & Plan (1) Acute ischemic multifocal multiple vascular territories stroke: Plan: Acute multifocal ischemic stroke Patient had an outpatient MRI ordered for progressive weakness and trauma. This was performed the day of admission at approximately 11 AM, patient referred to ER due to acute findings - Outpatient MRI showed multifocal subcentimeter embolic infarcts in multiple vascular territories, involving the cerebellar hemispheres bilateral expiratory lobes and bilateral frontal lobes. -Possibly thromboembolic in origin, also given newly diagnosed lung mass with adjacent thrombus. -Neurologist on consult, continue aspirin and statin. -Although CTA showed 75% stenosis at the left carotid artery bifurcation, disease unlikely the reason for his stroke. -Swallow eval was done, showed some silent aspiration -2D echo showed grade 1 diastolic dysfunction, no shunts. -Appreciate neurology recommendations. -Physical therapy (2) Lung mass: Plan: Lung mass, complicated effusion Extensive smoking history, more than 50 pack years in remission for the last 3 to 4 years This was not noted on prior x-rays,? Interval development versus previously obscured by cardiac silhouette. - Chronic intermittent cough, no hemoptysis or change in sputum production. Occasional aspiration events in the past, no recent change in cough CTchest with contrast suspicious for bronchogenic malignancy with tumor thrombus. - Patient covered with broad-spectrum antibiotics,cefepime/flagyl w. MRSA pending. If MRSA+ --> vanc vs linezolid for coverage. -Appreciate pulmonology, plans for bronchoscopy today -Family meeting is scheduled for tomorrow, with palliative in attendance (3) IHSAN (acute kidney injury): Plan: Baseline creatinine around 1.11.4 currently 1.54 -Avoid nephrotoxics (4) GERD (gastroesophageal reflux disease): Plan: Continue Protonix (5) HLD (hyperlipidemia): Plan: Simvastatin converted to atorvastatin 40 mg when able to tolerate/meds (6) BPH w urinary obs/LUTS: Plan: Continue Flomax/finasteride Bladder scan every shift, if PVR greater than 350 cath (7) Tremor of both hands: Plan: CVA as nosted (8) Tobacco abuse: Plan: In remission for 3 years, no patch required. No outpatietn chest CT for comparison per pt/son. See above Plan Diet: regular CODE STATUS: Full code per patient and POA at bedside Disposition: PCU Admission and Anticipated Discharge Date Admission Date: June 27, 2023 Subjective patient seen and examined, plan is for bronchoscopy today Review of Systems Review of Systems: All systems reviewed are negative, apart from the ones contained in the history. Physical Exam Physical Exam: The patient is awake, alert and oriented 3, well developed and well nourished, normocephalic and atraumatic, lying in bed and in no acute distress. HEENT--PERRL, EOMI, mucous membranes and oropharynx mildly dry Neck--supple. No JVD. No bruits. Thyroid normal, trachea midline, no adenopathy. Heart--normal S1 and S2. No murmurs, rubs or gallops. Lungs--clear bilaterally, no respiratory distress, no accessory muscle use. Abdomen--normal bowel sounds and soft. Mild epigastric and left sided abdominal pain Extremities--no cyanosis or clubbing. No edema. Dermatologic--normal skin turgor, normal color, no abnormal lymph nodes, no rash. Neurologic--cranial nerves II through XII grossly intact. Rheumatologic--normal range of motion. Psychiatric--normal affect. Results & Data Results & Data Vital Signs (Past 12 Hours) Vital Signs Temp Pulse Pulse Resp BP Pulse Ox O2 Del Method 06/29/23 11:10 97.7 F 87 18 120/64 96 Room Air 06/29/23 07:42 98.2 F 79 20 121/74 98 Room Air 06/29/23 03:30 97.3 F L 75 19 118/59 L 97 Room Air 06/29/23 01:41 97.3 F L 78 18 101/74 92 Room Air 06/28/23 23:58 61 PG Care Time/CCT Total # of Minutes Spent Total Time Spent with Patient: Total time spent is greater than 50% in coordination of care (as documented) at patient's floor/unit and/or counseling patient: Coding Level of Care Code 18906 SUB INP/OBS CARE 2/35MIN Diagnoses Acute ischemic multifocal multiple vascular territories stroke I63.89 Lung mass R91.8 IHSAN (acute kidney injury) N17.9 GERD (gastroesophageal reflux disease) K21.9 HLD (hyperlipidemia) E78.5 BPH w urinary obs/LUTS N40.1; N13.8 Tremor of both hands R25.1 Tobacco abuse Z72.0 Time Spent (min) 35
[2023-06-29] MEDS ORDERED: fentaNYL citrate PF 100 MCG/2 ML VIAL ONE (11:48)
[2023-06-29] MEDS ORDERED: MIDAZOLAM HCL 5 MG/ML 1 ML VIAL ONE (11:48)
--- NOTE | 2023-06-29 13:18 | Procedure Note ---
Procedure Note Date of Service June 29, 2023 Note PROCEDURE PERFORMED: Flexibile bronchoscopy INDICATIONS FOR EXAMINATION: RLL mass MEDICATIONS: Fentanyl 50mcg, Versed 2 mg VISUALIZATION: Good TOLERANCE: Good COMPLICATIONS: None EXTENT OF EXAM: All segments visualized to subsegmental LIMITATIONS: None PROCEDURE TECHNIQUE: Flexible bronchoscopy: A physical exam was performed and an informed consent was obtained from the patient after explaining the risks, (pneumothorax, life threatening bleeding, infection and adverse effects due to medications) benefits and alternatives to the procedure which the patient appeared to understand and so stated. The patient was connected to the monitoring devices. Continuous oxygen was provided with a oxy mask and IV medicine administered through an indwelling IV catheter. Lidocaine 2%, viscous lidocaine, were used for local anesthesia. The bronchoscope was inserted and the airway examined. FINDINGS: endobronchial mucosal swelling and erythema starting in bronchus intermedius. External compression noted on the lateral aspect of right middle lobe bronchus. Right superior basal segmental bronchus (RB6) was completely collapsed. Rest of right basal segmental bronchi had significant endobronchial mucosal swelling. Examination of the right superior basal segment was limited due to significant narrowing, areas of its endobronchial mucosa were irregular and polypoid, very friable and not biopsied. Brushing was performed in RB6 x 3. BAL in the same area was done by instilling 2.5 aliquots of 50cc room temperature saline. Approximately 30cc of clear fluid was withdrawn. Unfortunately washing that was collected bilaterally was not able to be sent for analysis due to the container that was used. Examination of the rest of the bronchial tree, including RUL and left were unremarkable. Large amount of thick mucus in the hypopharynx was suctioned clear. [employer] DIAGNOSIS: Suspect malignancy in right basal segments corresponding with RLL mass seen on chest CT. RECOMMENDATIONS: Follow-up all tests and with pulmonary. Coding
--- NOTE | 2023-06-29 13:46 | Pulmonology Progress Note ---
Date of Service June 29, 2023 Assessment & Plan (1) Lung mass: (2) Acute ischemic multifocal multiple vascular territories stroke: (3) CKD (chronic kidney disease), stage III: Chronic kidney disease stage 3 subtype: unspecified whether 3a or 3b Qualified Code(s): N18.30 - Chronic kidney disease, stage 3 unspecified (4) Aspiration into lower respiratory tract: Encounter type: sequela Qualified Code(s): T17.800S - Unspecified foreign body in other parts of respiratory tract causing asphyxiation, sequela (5) Pneumonia: Aspiration pneumonia type: unspecified Laterality: right Lung location: lower lobe of lung Pneumonia type: aspiration pneumonia Qualified Code(s): J69.0 - Pneumonitis due to inhalation of food and vomit Plan 78 year old male with 2 year history of progressive LE weakness, confusion, and multiple falls presents to ED after an outpatient MRI revealed bilateral acute infarcts suspicious for a proximal thromboembolic source. Incidentally on admission chest CT showed a RLL rim-enhancing mass with a suspected adjacent arterial vs venous thrombus. Bronch today showed extrinsic compression of the right lower lung segments and endobronchial mucosal inflammation highly suspicious for malignancy. Please see procedure note for detail. Follow up bronch cytology and cultures. Continue empiric cefepime and flagyl d3. Check abd/pelvic CT with IV contrast. Schedule for chest CTA today for further evaluation of previously noted intra- arterial vs venous thrombus. Called and spoke with POA son-in-law Ej. I let him know that pending bronch results, additional diagnostic procedures including repeat bronchoscopy may be indicated for definitive diagnosis and treatment consideration. Neuro consult appreciated. . Admission and Anticipated Discharge Date Admission Date: June 27, 2023 Subjective no issues overnight. Physical Exam Constitutional: average body habitus Respiratory: normal respiratory effort Auscultation: + diminished lung sounds and + rhonchi Cardiovascular: Rate/Rhythm: regular rate and regular rhythm Extremities: + edema Skin: no rashes and no lesions Neurologic: CN's II-XI intact bilaterally, moves all extremities and awake Speech / Cognition: + abnormal cognition; no expressive aphasia and no receptive aphasia Psychiatric: Orientation: alert and oriented to person Cognition: language grossly intact Insight: + limited insight Results & Data Results & Data Vital Signs (Past 12 Hours) Vital Signs Temp Pulse Pulse Resp BP BP Pulse Ox 06/29/23 12:59 68 16 98/57 L 98 06/29/23 12:45 75 16 99/55 L 98 06/29/23 12:37 66 16 81/54 L 98 06/29/23 12:25 86 16 86/64 L 98 06/29/23 12:20 74 19 98/62 L 99 06/29/23 12:15 06/29/23 12:15 77 19 90/55 L 98 06/29/23 12:10 86 19 99/50 L 98 06/29/23 12:05 71 19 86/61 L 98 06/29/23 12:00 79 20 103/57 L 97 06/29/23 11:55 88 20 102/64 99 06/29/23 11:43 99 H 18 115/58 L 99 06/29/23 11:10 36.5 C 87 18 120/64 96 06/29/23 07:42 36.8 C 79 20 121/74 98 06/29/23 03:30 36.3 C L 75 19 118/59 L 97 O2 Del Method O2 Flow Rate 06/29/23 12:59 Room Air 06/29/23 12:45 Oxymask 06/29/23 12:37 Oxymask 06/29/23 12:25 Oxymask 8 06/29/23 12:20 Oxymask 8 06/29/23 12:15 Room Air 06/29/23 12:15 Oxymask 8 06/29/23 12:10 Oxymask 8 06/29/23 12:05 Oxymask 8 06/29/23 12:00 Oxymask 8 06/29/23 11:55 Oxymask 8 06/29/23 11:43 Oxymask 06/29/23 11:10 Room Air 06/29/23 07:42 Room Air 06/29/23 03:30 Room Air PG Care Time/CCT Total # of Minutes Spent Total Time Spent with Patient: Total time spent is greater than 50% in coordination of care (as documented) at patient's floor/unit and/or counseling patient: Coding Level of Care Code 68421 SUB INP/OBS CARE 2/35MIN Diagnoses Lung mass R91.8 Acute ischemic multifocal multiple vascular territories stroke I63.89 Stage 3 chronic kidney disease, unspecified whether stage 3a or 3b CKD N18.30 Chronic kidney disease stage 3 subtype: unspecified whether 3a or 3b Aspiration into lower respiratory tract, sequela T17.800S Encounter type: sequela Aspiration pneumonia of right lower lobe, unspecified aspiration pneumonia type J69.0 Aspiration pneumonia type: unspecified Laterality: right Lung location: lower lobe of lung Pneumonia type: aspiration pneumonia
--- NOTE | 2023-06-29 14:31 | XRay Report ---
XR chest 1V portable HISTORY: Post Bronchoscopy COMPARISON: Chest 06/27/2023. FINDINGS: No pneumothorax. Small bilateral pleural effusions and patchy bibasilar densities have slig htly progressed. The heart is stable in size. The upper lung zones remain clear. Mild diffuse interst itial thickening persists. Right retrohilar mass is again noted. IMPRESSION: 1. No pneumothorax. 2. Right retrohilar mass again noted. 3. Patchy bibasilar densities and small bilateral pleural effusions have slightly progressed. ACT 112: Negative or not required by law. Electronically signed by: Darrin Oliver M.D. 06/29/2023 2:29 PM
[2023-06-29 16:15] LABS: Basophil Body Fluid Man 1 %; Eosinophil Body Fluid Man 1 %; Fluid Mono/Macrophage 38 %; Lymphocyte Body Fluid Man 5 %; Neutrophil Body Fluid Man 55 %
[2023-06-29] MEDS ORDERED: OPTIRAY 320 500ml IV ONE (21:19)
[2023-06-30] MEDS: metroNIDAZOLE 500 MG/100 ML BAG IV SCH ×3 (02:19→17:39)
--- NOTE | 2023-06-30 02:27 | CT Scan Report ---
Exam(s): CT ABDOMEN + PELVIS With Contrast IV Amt: 114 ML OPTIRAY 320 EXAM: CT Abdomen and Pelvis With Intravenous Contrast CLINICAL HISTORY: Reason for exam: rule out malignancy. TECHNIQUE: Axial computed tomography images of the abdomen and pelvis with intravenous contrast. CTDI is 26.37 mGy and DLP is 1207.37 mGy-cm. Automated exposure control was utilized for the study. A dose lowering technique was utilized adhering to the principles of ALARA. CONTRAST: Patient received 114 ML OPTIRAY 320 of IV contrast COMPARISON: CT abdomen pelvis 03/09/2020 FINDINGS: Lung bases: Consolidation in the right lower lobe consistent with pneumonia. Pleural space: Small bilateral pleural effusions right greater than left. ABDOMEN: Liver: Unremarkable. Gallbladder and bile ducts: Cholelithiasis without cholecystitis. Pancreas: Unremarkable. Spleen: Unremarkable. Adrenals: Unremarkable. Kidneys and ureters: Nonobstructing nephrolithiasis bilaterally. Stomach and bowel: Left inguinal hernia containing a knuckle of nonobstructed sigmoid colon. PELVIS: Appendix: No findings to suggest acute appendicitis. Bladder: Unremarkable. Reproductive: Unremarkable as visualized. ABDOMEN and PELVIS: Intraperitoneal space: Unremarkable. No free air. No significant fluid collection. Bones/joints: Right hip arthroplasty. No acute osseous abnormality. Chronic appearing compression deformity at T12. Soft tissues: Body wall edema. Vasculature: Moderate aortobiiliac atherosclerotic calcifications.. Lymph nodes: Unremarkable. IMPRESSION: 1. No evidence of malignancy. 2. Consolidation in the right lower lobe consistent with pneumonia. 3. Small bilateral pleural effusions right greater than left. 4. Body wall edema. 5. Left inguinal hernia containing a knuckle of nonobstructed sigmoid colon. 6. Cholelithiasis without cholecystitis. 7. Nonobstructing nephrolithiasis bilaterally. Electronically signed by: Joni Monique MD 06/30/23 02:26 AM
--- NOTE | 2023-06-30 02:30 | CT Scan Report ---
Exam(s): CTA CHEST W/WO Contrast IV Amt: 114 ML OPTIRAY 320 EXAM: CT Angiography Chest Without and With Intravenous Contrast CLINICAL HISTORY: Reason for exam: recent CT without contrast noted thrombus. TECHNIQUE: Axial computed tomographic angiography images of the chest without and with intravenous contrast. CTDI is 21.81 mGy and DLP is 824.06 mGy-cm. Automated exposure control was utilized for the study. A dose lowering technique was utilized adhering to the principles of ALARA. MIP reconstructed images were created and reviewed. CONTRAST: Patient received 114 ML OPTIRAY 320 of IV contrast COMPARISON: No relevant prior studies available. FINDINGS: Pulmonary arteries: No pulmonary embolism. Aorta: No acute findings. Normal caliber. No dissection. Lungs: Nonenhancing consolidation in the right lower lobe. Differential of malignancy versus pneumonia. Pleural space: Small bilateral pleural effusions. Heart: Moderate coronary artery calcifications. Bones/joints: No acute fracture. Soft tissues: Body wall edema. Lymph nodes: Unremarkable. IMPRESSION: 1. Nonenhancing consolidation in the right lower lobe. Differential of malignancy versus pneumonia. 2. Small bilateral pleural effusions. 3. No pulmonary embolism. 4. Body wall edema. Electronically signed by: Joni Monique MD 06/30/23 02:30 AM
[2023-06-30] MEDS: CEFEPIME 2,000 MG in SYRINGE 0 ML IV SCH ×2 (06:15→17:39)
[2023-06-30] MEDS: PLASMA-LYTE A 1,000 ML IV SCH ×2 (08:09→21:00)
[2023-06-30] MEDS: ASPIRIN 81 MG ECTAB PO SCH (08:10)
[2023-06-30] MEDS: ATORVASTATIN 40 MG TAB PO SCH (08:10)
--- NOTE | 2023-06-30 09:19 | Palliative Care Consultation ---
Date of Consultation June 30, 2023 Assessment & Plan (1) Dyspnea and respiratory abnormalities: bronchitic cough suggest ACT interventions to mobilize secretions (2) Ambulatory dysfunction: needs PT eval, wants [facility] or home, NO SNF. See ACP meeting below (3) Confusion: improved (4) Weakness generalized: (5) Advanced care planning/counseling discussion: Met with pt and his Lupe face to face at bedside x 55 minutes, their son in law called Abdi's cell and she placed him on speaker phone to attend telephonically; joined by Devi PAVON approx 15min into discussion. Devi and I met with Lupe and Miquel Fong in room 212. Lupe reports frustration re: perceived lack of communication/states she is being "cut out" from communications bc son in law was ?recently made POA (though nature of POA is unclear ie financial, medical , legal or what combo - no one has a copy of the form and has not seen/did not know it was happening); family dynamics appear complex. Today pt was decisional: I asked him who he wants there for discussion he said his . There was mention in earlier notes of a possible dementia, ?cause for POA completion but stated this was done without her knowledge or involvement and that it appeared to have all happened very quickly and she is visibly upset soeaking about it. 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 She is very informed with high health literacy and wants daily update. I suggested she ask nurses to page attending when she arrives as she comes at different times on days she has her own appts. She states she is not allowing pt to go to SNF "Never, don't even ask." But she states she is open to [facility]. We reviewed the process of qualifying for rehab and will ask PT to formally eval pt this week. states they have not decided if they would even want treatment. She states she knows what she would pick but feels pt needs to make decision for himself although she is willing to share her opinions and have input. We spoke about his trajectory of illness, reason for admission, test results and procedures to date. We also reviewed code status and I reviewed CPR survival: Only about 10% of patients who have [id number] sudden cardiac arrest survive to hospital discharge, with many survivors having neurologic impairment. This rate is even lower among patients with serious coexisting conditions, ie chance of survival to hospital discharge for in-hospital CPR in older people is low to moderate (15%) and decreases with age, comorbidities, performance status and frailty: for pts > 70 yo, more than half of the patients who initially survived resuscitation in the hospital before hospital discharge. The pooled survival to discharge after in-hospital CPR was 18% for patients between 70 and 79 years old, 15% for patients between 80 and 89 years old and 11% for patients of 90 years and older. (Agustin KERRY, Anthony LJ, Erich F, et al. Trends in short- and long-term survival among [id number] cardiac arrest patients alive at hospital arrival. Circulation 2014;130:8739-8033. AND Heladio C, Elvia T, Flower R, et al. Performance of clinical risk scores to predict mortality and neurological outcome in cardiac arrest patients. Resuscitation 2019;136:21-29.) For now, they report no changes and they want to see what bronch shows and maybe speak with oncology. I gave them 3 questions to discuss and decide as "homework" for the weekend: what are the top 2-3 goals for his care, what would "better" mean for him and look like for him and them as a family, and code status - I recc no code and provided rationale. I also reviewed CPR will not cure/reverse or fix the underlying issues and he may not liberate from vent given underlying COPD emphysema + new lung ca etc. I offered follow up next Mon/Monday and she is going to check her schedule and let us know. I also asked them to please review the POA document as a family and provide a copy for his chart. Lupe asked "if having the POA means she has no rights as his ?" I asked them what kind of POA i.e., medical, financial or legal and STEPHANE replied "it's a durable POA." I advised durable POA further stipulates if financial, medical, legal or any combination thereof and he again replied "It's a durable POA, for all of it and I don't care who the POA is, I don't have to be the person if it is going to be a problem with you, you can have it." I encouraged them to speak about this more as a family and also advised the POA goes into effect when pt is no longer capable of making his own decisions. (6) Palliative care by specialist: Met with at bedside, Lupe, and provided overview of Palliative Medicine, a subspecialty that provides specialized medical care for people living with a serious illness by offering a focus on quality of life. Palliative Medicine is often conflated with hospice: I advised patient/family that Palliative and h ospice can be partners but we are not the same. It is important to understand the difference so that we may be informed, and not afraid. Palliative Medicine works to improve QOL through reduction of symptom burden/more control over their illness, for both the patient and family. Palliative medicine clinicians are board certified, specially-trained and another member of the patient's medical care team. We often provide an extra layer of support because our care is based on the needs of the patient, not the prognosis; as such, it's appropriate at any age/advancing stage of a serious illness and can be provided along with curative treatment. Palliative Medicine clinicians are also trained in advanced communication methodologies, to facilitate complex discussions about advanced illness planning, which are needed to help assure that the treatment choices match the patient's goals, aka delivering Goal Concordant care. Finally, we discussed that hospice is a visiting nurse service that focuses on care delivered at the very end of life for patients with terminal illness, with life expectancy less than 6 month. Plan * ACP discussion as noted above * Family and patient to further discuss, elucidate and clarify GOC + code this weekend * is not happy about POA document, repeatedly stated this was done without her knowledge etc, Encouraged them to speak as a family about this and then update medical team as needed. * NO changes today. * Primary tea, CM, nursing updated. * Follow up offered, t let staff know if/when desired. Thank you for allowing us to participate in the ongoing care of this patient. Please don't hesitate to call or page with any additional concerns. Dr. Bambi Galvan [facility] Director, Palliative Care History of Present Illness Reason for Consultation: [facility] Attending Physician: Jamaal Archer History of Present Illness 78yo male admitted 06/27/23 with acute ischemic multifocal multiple vascular territories stroke following an outpatient MRI which had been ordered for progressive weakness and trauma. He was then referred to ER due to acute findings. PMH: BPH, HLD, GERD, Depression, DJD, hearing loss; ?poss dementia but hard to discern in setting of acute stroke Family report generalized decline with weakness, ambulatory dysfxn, etc. Code Status: Full per pt. SETPHANE Pagan is POA, Pt is and is Lupe. Palliative Medicine consulted to assist with ongoing GOC discussion and serious illness planning. Results: MRI-B: 1. Numerous scattered subcentimeter multivascular distribution of acute infarcts are noted within the frontal, parietal, and occipital lobes and cerebellum. A proximal thromboembolic source is considered most likely. This study was made as a call report. CTchest with contrast suspicious for bronchogenic malignancy with tumor thrombus. CTA: left carotid artery bifurcation with approximately 75% stenosis of the ICA. Vascular is consulted for CVA with significant stenosis; stroke DDx includes tumor, septic emboli and cardioembolic Echo: EF 50-55%. Grade 1 diastolic dysfxn. LVWM WNL. Troponin with stroke order set elevated at 255, patient is clinically chest pain-free, EKG: sinus without ischemic change. He is high risk for hemorrhagic conversion due to his multiple CVA. Deferred heparinization, trop trended. He underwent bronch w/bx yesterday for lung mass for suspected bronchogenic carcinoma. Pt has 50+ yr smoking hx, stopped smoking approx 3-4 yr ago He has been seen by Neurology who noted his 75% stenosis at the left carotid artery bifurcation on CTA. This vascular lesion is incidental and would not be responsible for his multifocal, multi vascular territory embolic infarct. Per ED note: Miquel is seen at the bedside with his son present. He is oriented to season but not to year and is off on month by 1 (thinks it is July rather than June) and follows 1 and two-step commands with increased latency. History is somewhat limited due to mental status, collateral was obtained from son who is at bedside. Miquel has had progressive decline over the preceding 2 years and has had multiple falls with none in the last month, and an increase in periodic tremors of the hands. He and his sons deny focal weakness, but his leg strength has progressively declined bilaterally to the point where he had been having falls. He has had 1 hip fracture repair to the surgery, reports this was on the right. Over the last month voice has been shaky, has had intermittent stuttering although no dysarthria. Increased word finding latency but denies expressive and receptive aphasia. He has not had chest pain at any point. No known history of A-fib. He has not had any palpitations. Miquel is a former smoker, no current tobacco use but smoked around 1 pack/day for most of his life, quit 3-4 years ago. No prior history of stroke He was evaluated by neurology as an outpatient, due to his tremor progressive decline and confusion with word finding difficulty had an MRI ordered as outpt. MRI was performed at 11am, acute CVAs were noted, and pt was referred to ER. Denies change in breathing, has a history of tobacco use with intermittent cough on and off but no recent exacerbations. Does not notice provoking or remitting factors. Allergies Allergy/AdvReac Type Severity Reaction Status Date / Time No Known Allergies Allergy Unverified 06/27/23 13:40 Home Medications Medication Instructions Recorded Confirmed Type aspirin 81 mg tablet,delayed 81 mg PO QAM 03/09/20 06/27/23 History release (Paulo Low Dose Aspirin) citalopram 20 mg tablet 20 mg PO QPM 03/09/20 06/27/23 History simvastatin 20 mg tablet 20 mg PO QPM 03/09/20 06/27/23 History finasteride 5 mg tablet 5 mg PO QPM 11/12/22 06/27/23 History garlic 1,000 mg capsule 1,000 mg PO QAM 11/12/22 06/27/23 History meloxicam 7.5 mg tablet 7.5 mg PO HS 11/12/22 06/27/23 History pantoprazole 40 mg tablet,delayed 40 mg PO DAILY 11/12/22 06/27/23 History release tamsulosin 0.4 mg capsule 0.4 mg PO HS 11/12/22 06/27/23 History potassium chloride 10 mEq 10 meq PO DAILY 06/13/23 06/27/23 History tablet,extended release furosemide 20 mg tablet 20 mg PO QAM 06/27/23 06/27/23 History furosemide 20 mg tablet 20 mg PO QPM PRN Edema 06/27/23 06/27/23 History mirabegron 25 mg tablet,extended 25 mg PO QAM 06/27/23 06/27/23 History release 24 hr (Myrbetriq) multivitamin 1 tab PO QAM 06/27/23 06/27/23 History vitamin A-vitamin C-vit E-min 1 tab PO DAILY 06/27/23 06/27/23 History tablet Patient History Medical History Depression GERD (gastroesophageal reflux disease) HLD (hyperlipidemia) CKD (chronic kidney disease), stage III BPH (benign prostatic hyperplasia) Fall Surgical History Status post hip surgery Family History Other Cancer Social History Smoking Status: Former smoker Tobacco Type: Cigarettes Second Hand Exposure: No; Do You Dip or Chew Tobacco: No; Hx Alcohol Use: No Hx Substance Use: No Preferred Language: Rw[place]an Communication Ability: Effective Spanish Translator Required: No Beliefs That Will Affect Care: None Current Living Situation: Spouse Feels Safe at Home: Yes Safety Concerns: Feels Safe At This Time Assistive Devices: Lift Chair, Walker and Wheelchair Review of Systems Review of Systems: All systems reviewed & are unremarkable except as noted in Subjective Physical Exam Constitutional: + ill appearing, + frail appearing and c ooperative Eyes: PERRL, conjunctivae normal, anicteric sclerae ENMT: Ears: + hearing impairment Mouth: + muffled voice and + poor dentition Throat: uvula midline and + postnasal drainage Neck: trachea midline, no thyromegaly Respiratory: + labored breathing (mild ), + cough (br onchitic), able to speak in complete sentences and + prolonged expiratory phase Auscultation: + diminished lung sounds and + rhonchi Cardiovascular: RRR, no murmur, no edema Gastrointestinal (Abdomen): normal bowel sounds, soft, nontender, no hepatosplenomegaly Musculoskeletal: gen weakness LUE swollen Skin: pink, warm Neurologic: PERRL, EOMI, accommodation nl, no face palsy, no dysarthria AAO x3 this morning but easily drifts off to sleep at times Results & Data Vital Signs (Past 12 Hours) Vital Signs Temp Pulse Pulse Resp BP BP Pulse Ox 06/30/23 07:41 36.4 C L 76 19 109/59 L 94 06/30/23 03:25 36.2 C L 77 18 97/53 L 94 06/30/23 00:37 88 06/29/23 23:20 36.5 C 80 18 106/78 93 O2 Del Method 06/30/23 07:41 Room Air 06/30/23 03:25 Room Air 06/30/23 00:37 06/29/23 23:20 Room Air Laboratory Results reviewed, see HPI Diagnostic Findings reviewed, see HPI PG Care Time/CCT Total # of Minutes Spent Total Time Spent: 100 Total Time Spent with Patient: Total time spent is greater than 50% in coordination of care (as documented) at patient's floor/unit and/or counseling patient: 100 min total 55 min ACP balance in care coordination, chart review, pt exam Advanced Care Planning 60582 Advanced Care Planning 30 Min 09211 Advanced Care Planning Additional 30 [place] [address] IN/OBS CONSULT LVL 5,80M Patient Type New History Comprehensive Exam Comprehensive Medical Decision Making High Complexity Diagnoses Dyspnea and respiratory abnormalities R06.00; R06.89 Ambulatory dysfunction R26.2 Confusion R41.0 Weakness generalized R53.1 Advanced care planning/counseling discussion Z71.89 Palliative care by specialist Z51.5 Additional Codes Advanced Care Planning - 97538 Advanced Care Planning 30 Min: 14353 Advanced Care Planning 30 Min ([id number]) Advanced Care Planning - 93565 Advanced Care Planning Additional 30 Min: 79310 Advanced Care Planning Additional 30 Min ([id number])
[2023-06-30 09:38] LABS: Basophils # (auto) 0.03 K/uL (0.00-0.20); Basophils % (auto) 0.4 %; Eosinophils # (auto) 0.07 K/uL (0.00-0.50); Hematocrit (blood only) 40.4 % (42.0-52.0); Hemoglobin 13.3 g/dl (14.0-18.0); Immature Granulocytes # (auto) 0.03 K/uL (0.01-0.20); Immature Granulocytes % (auto) 0.4 %; Lymphocytes # (auto) 0.52 K/uL (1.20-3.40); Lymphocytes % (auto) 7.3 %; Mean Corpuscular Hemoglobin 28.4 pg (25.0-34.0); Mean Corpuscular Hgb Conc 32.9 g/dL (32.0-36.0); Mean Corpuscular Volume 86.3 fL (80.0-100.0); Mean Platelet Volume 10.2 fL (9.4-12.4); Monocytes # (auto) 0.41 K/uL (0.11-0.59); Monocytes % (auto) 5.8 %; Neutrophils # (auto) 6.02 K/uL (1.40-6.50); Neutrophils % (auto) 85.1 %; Platelet Count 271 K/uL (130-400); RDW Coefficient of Variation 15.9 % (11.5-14.5); RDW Standard Deviation 50.5 fL (36.4-46.3); Red Blood Count 4.68 M/uL (4.70-6.10); White Blood Count 7.08 K/ul (4.8-10.8)
[2023-06-30 09:58] LABS: BUN Creatinine Ratio 20.8 (10-20); Calcium 8.4 mg/dl (8.6-10.3); Creatinine Clr Calc Pharmacy 47.6 ml/min; Est GFR (Non-African American) 52.6 ml/min; Potassium 4.1 mmol/L (3.5-5.1)
--- NOTE | 2023-06-30 21:33 | Hospitalist Progress Note ---
Date of Service June 30, 2023 Assessment & Plan (1) Acute ischemic multifocal multiple vascular territories stroke: Plan: Acute multifocal ischemic stroke Patient had an outpatient MRI ordered for progressive weakness and trauma. This was performed the day of admission at approximately 11 AM, patient referred to ER due to acute findings - Outpatient MRI showed multifocal subcentimeter embolic infarcts in multiple vascular territories, involving the cerebellar hemispheres bilateral expiratory lobes and bilateral frontal lobes. -Possibly thromboembolic in origin, also given newly diagnosed lung mass with adjacent thrombus. -Neurologist on consult, continue aspirin and statin. -Although CTA showed 75% stenosis at the left carotid artery bifurcation, disease unlikely the reason for his stroke. -Swallow eval was done, showed some silent aspiration -2D echo showed grade 1 diastolic dysfunction, no shunts. -Appreciate neurology recommendations. -Physical therapy (2) Lung mass: Plan: Lung mass, complicated effusion Extensive smoking history, more than 50 pack years in remission for the last 3 to 4 years This was not noted on prior x-rays,? Interval development versus previously obscured by cardiac silhouette. - Chronic intermittent cough, no hemoptysis or change in sputum production. Occasional aspiration events in the past, no recent change in cough CTchest with contrast suspicious for bronchogenic malignancy with tumor thrombus. - Patient covered with broad-spectrum antibiotics,cefepime/flagyl w. MRSA pending. If MRSA+ --> vanc vs linezolid for coverage. -Appreciate pulmonology, bronchoscopy completed -Family meeting completed with palliative care. Family will have discussion with themselves regarding POA. (3) IHSAN (acute kidney injury): Plan: Baseline creatinine around 1.11.4 currently 1.54 -Avoid nephrotoxics (4) GERD (gastroesophageal reflux disease): Plan: Continue Protonix (5) HLD (hyperlipidemia): Plan: Simvastatin converted to atorvastatin 40 mg when able to tolerate/meds (6) BPH w urinary obs/LUTS: Plan: Continue Flomax/finasteride Bladder scan every shift, if PVR greater than 350 cath (7) Tremor of both hands: Plan: CVA as nosted (8) Tobacco abuse: Plan: In remission for 3 years, no patch required. No outpatietn chest CT for comparison per pt/son. See above Plan Diet: regular CODE STATUS: Full code per patient and POA at bedside Disposition: PCU Admission and Anticipated Discharge Date Admission Date: June 27, 2023 Subjective Patient reports no new symptoms. Review of Systems Review of Systems: All systems reviewed & are unremarkable except as noted in HPI & below Physical Exam Physical Exam: The patient is awake, alert and oriented 3, lying in bed and in no acute distress. HEENT--PERRL, EOMI, mucous membranes and oropharynx mildly dry Neck--supple. No JVD. No bruits. Thyroid normal, trachea midline, no adenopathy. Heart--normal S1 and S2. No murmurs, rubs or gallops. Lungs--clear bilaterally, no respiratory distress, no accessory muscle use. Abdomen--normal bowel sounds and soft. Mild epigastric and left sided abdominal pain Extremities--no cyanosis or clubbing. No edema. Dermatologic--normal skin turgor, normal color, no abnormal lymph nodes, no ra sh. Neurologic--cranial nerves II through XII grossly intact. Rheumatologic--normal range of motion. Psychiatric--normal affect. Results & Data Results & Data Vital Signs (Past 12 Hours) Vital Signs Temp Pulse Pulse Pulse Resp BP BP 06/30/23 19:16 37.2 C 89 20 129/87 06/30/23 16:47 06/30/23 15:49 36.5 C 72 18 102/63 06/30/23 15:08 67 06/30/23 11:28 36.4 C L 76 19 100/62 06/30/23 10:01 Pulse Ox O2 Del Method 06/30/23 19:16 94 Room Air 06/30/23 16:47 96 Room Air 06/30/23 15:49 92 Room Air 06/30/23 15:08 06/30/23 11:28 91 Room Air 06/30/23 10:01 Room Air PG Care Time/CCT Total # of Minutes Spent Total Time Spent with Patient: Total time spent is greater than 50% in coordination of care (as documented) at patient's floor/unit and/or counseling patient: Coding Level of Care Code 91085 SUB INP/OBS CARE 2/35MIN Diagnoses Acute ischemic multifocal multiple vascular territories stroke I63.89 Lung mass R91.8 IHSAN (acute kidney injury) N17.9 GERD (gastroesophageal reflux disease) K21.9 HLD (hyperlipidemia) E78.5 BPH w urinary obs/LUTS N40.1; N13.8 Tremor of both hands R25.1 Tobacco abuse Z72.0
[2023-07-01] MEDS: metroNIDAZOLE 500 MG/100 ML BAG IV SCH ×3 (02:19→18:46)
[2023-07-01] MEDS: ONDANSETRON INJ 2 MG/ML 2 ML VIAL IV PRN (05:04)
[2023-07-01] MEDS: CEFEPIME 2,000 MG in SYRINGE 0 ML IV SCH ×2 (05:04→18:51)
[2023-07-01 07:36] LABS: Hematocrit (blood only) 36.1 % (42.0-52.0); Hemoglobin 12.2 g/dl (14.0-18.0); Mean Corpuscular Hemoglobin 28.8 pg (25.0-34.0); Mean Corpuscular Hgb Conc 33.8 g/dL (32.0-36.0); Mean Corpuscular Volume 85.1 fL (80.0-100.0); Mean Platelet Volume 10.5 fL (9.4-12.4); Platelet Count 259 K/uL (130-400); RDW Coefficient of Variation 15.8 % (11.5-14.5); RDW Standard Deviation 48.7 fL (36.4-46.3); Red Blood Count 4.24 M/uL (4.70-6.10); White Blood Count 7.76 K/ul (4.8-10.8)
[2023-07-01 08:06] LABS: Calcium 8.1 mg/dl (8.6-10.3)
[2023-07-01 08:12] LABS: BUN Creatinine Ratio 18.9 (10-20); Creatinine Clr Calc Pharmacy 41.8 ml/min; Est GFR (African American) 52.1 ml/min
[2023-07-01] MEDS: PLASMA-LYTE A 1,000 ML IV SCH ×2 (09:09→21:41)
[2023-07-01] MEDS: ASPIRIN 81 MG ECTAB PO SCH (09:11)
[2023-07-01] MEDS: ATORVASTATIN 40 MG TAB PO SCH (09:11)
--- NOTE | 2023-07-01 14:45 | Pulmonology Progress Note ---
Date of Service July 01, 2023 Assessment & Plan (1) Lung mass: (2) Acute ischemic multifocal multiple vascular territories stroke: (3) CKD (chronic kidney disease), stage III: Chronic kidney disease stage 3 subtype: unspecified whether 3a or 3b Qualified Code(s): N18.30 - Chronic kidney disease, stage 3 unspecified (4) Aspiration into lower respiratory tract: Encounter type: sequela Qualified Code(s): T17.800S - Unspecified foreign body in other parts of respiratory tract causing asphyxiation, sequela (5) Pneumonia: Pneumonia type: aspiration pneumonia Aspiration pneumonia type: unspecified Laterality: right Lung location: lower lobe of lung Qualified Code(s): J69.0 - Pneumonitis due to inhalation of food and vomit Plan 78 year old male with 2 year history of progressive LE weakness, confusion, and multiple falls presents to ED after an outpatient MRI revealed bilateral acute infarcts suspicious for a proximal thromboembolic source. Incidentally on admission chest CT showed a RLL rim-enhancing mass. s/p bronch with BAL and brushing on 06/29. cytology negative. cultures NGTD. empiric cefepime and flagyl d4, OK to de-escalate to unasyn and eventually transition to augmentin upon discharge for a total 14 day of antibiotic treatment . Abd/pelvic CT negative for malignancy. CTA chest negative for PE. I spoke with patient and at the bedside. He needs repeat chest CT in 4 weeks and close follow up with pulmonary. is considering going to pulmonary in patient's healthcare network. Admission and Anticipated Discharge Date Admission Date: June 27, 2023 Subjective no complaints. crossword book open in his lap holding a johnson in one hand. at the bedside. Physical Exam Constitutional: average body habitus Respiratory: normal respiratory effort Auscultation: + diminished lung sounds and + rhonchi Cardiovascular: Rate/Rhythm: regular rate and regular rhythm Extremities: + edema Skin: no rashes and no lesions Neurologic: CN's II-XI intact bilaterally, moves all extremities and awake Speech / Cognition: + abnormal cognition; no expressive aphasia and no receptive aphasia Psychiatric: Orientation: alert and oriented to person Cognition: language grossly intact Insight: + limited insight Results & Data Results & Data Vital Signs (Past 12 Hours) Vital Signs Temp Pulse Pulse Resp BP Pulse Ox O2 Del Method 07/01/23 12:13 36.6 C 86 18 114/65 94 Room Air 11/18/23 08:13 37.0 C 88 20 122/80 91 Room Air 07/01/23 08:12 79 07/01/23 04:14 36.8 C 76 18 113/68 94 Room Air PG Care Time/CCT Total # of Minutes Spent Total Time Spent with Patient: Total time spent is greater than 50% in coordination of care (as documented) at patient's floor/unit and/or counseling patient: Coding Level of Care Code 00700 SUB INP/OBS CARE 2/35MIN Diagnoses Lung mass R91.8 Acute ischemic multifocal multiple vascular territories stroke I63.89 Stage 3 chronic kidney disease, unspecified whether stage 3a or 3b CKD N18.30 Chronic kidney disease stage 3 subtype: unspecified whether 3a or 3b Aspiration into lower respiratory tract, sequela T17.800S Encounter type: sequela Aspiration pneumonia of right lower lobe, unspecified aspiration pneumonia type J69.0 Pneumonia type: aspiration pneumonia Aspiration pneumonia type: unspecified Laterality: right Lung location: lower lobe of lung
--- NOTE | 2023-07-01 21:16 | Hospitalist Progress Note ---
Date of Service July 01, 2023 Assessment & Plan (1) Acute ischemic multifocal multiple vascular territories stroke: Plan: Acute multifocal ischemic stroke Patient had an outpatient MRI ordered for progressive weakness and trauma. This was performed the day of admission at approximately 11 AM, patient referred to ER due to acute findings - Outpatient MRI showed multifocal subcentimeter embolic infarcts in multiple vascular territories, involving the cerebellar hemispheres bilateral expiratory lobes and bilateral frontal lobes. -Possibly thromboembolic in origin, also given newly diagnosed lung mass with adjacent thrombus. -Neurologist on consult, continue aspirin and statin. -Although CTA showed 75% stenosis at the left carotid artery bifurcation, disease unlikely the reason for his stroke. -Swallow eval was done, showed some silent aspiration -2D echo showed grade 1 diastolic dysfunction, no shunts. -Appreciate neurology recommendations. -Physical therapy: appears patient may need rehab (2) Lung mass: Plan: Lung mass, complicated effusion Extensive smoking history, more than 50 pack years in remission for the last 3 to 4 years This was not noted on prior x-rays,? Interval development versus previously obscured by cardiac silhouette. - Chronic intermittent cough, no hemoptysis or change in sputum production. Occasional aspiration events in the past, no recent change in cough CTchest with contrast suspicious for bronchogenic malignancy with tumor thrombus. - Patient covered with broad-spectrum antibiotics,cefepime/flagyl w. MRSA pending. If MRSA+ --> vanc vs linezolid for coverage. -Appreciate pulmonology, bronchoscopy completed -Family meeting completed with palliative care. Family will have discussion with themselves regarding POA. Appears this lesion is an infection and not cancer given that the biopsy was negative. (3) IHSAN (acute kidney injury): Plan: Baseline creatinine around 1.11.4 currently 1.54 -Avoid nephrotoxics (4) GERD (gastroesophageal reflux disease): Plan: Continue Protonix (5) HLD (hyperlipidemia): Plan: Simvastatin converted to atorvastatin 40 mg when able to tolerate/meds (6) BPH w urinary obs/LUTS: Plan: Continue Flomax/finasteride Bladder scan every shift, if PVR greater than 350 cath (7) Tremor of both hands: Plan: CVA as nosted (8) Tobacco abuse: Plan: In remission for 3 years, no patch required. No outpatietn chest CT for comparison per pt/son. See above Plan Diet: regular CODE STATUS: Full code per patient and POA at bedside Disposition: PCU Admission and Anticipated Discharge Date Admission Date: June 27, 2023 Subjective 78 yo male reports no new symptoms. Review of Systems Review of Systems: All systems reviewed & are unremarkable except as noted in HPI & below Physical Exam Physical Exam: The patient is awake, alert and oriented 3, lying in bed and in no acute distress. HEENT--PERRL, EOMI, mucous membranes and oropharynx mildly dry Neck--supple. No JVD. No bruits. Thyroid normal, trachea midline, no adenopathy. Heart--normal S1 and S2. No murmurs, rubs or gallops. Lungs--clear bilaterally, no respiratory distress, no accessory muscle use. Abdomen--normal bowel sounds and soft. Mild epigastric and left sided abdominal pain Extremities--no cyanosis or clubbing. No edema. Dermatologic--normal skin turgor, normal color, no abnormal lymph nodes, no rash. Neurologic--cranial nerves II through XII grossly intact. Rheumatologic--normal range of motion. Psychiatric--normal affect. Results & Data Results & Data Vital Signs (Past 12 Hours) Vital Signs Temp Pulse Pulse Resp BP BP Pulse Ox 07/01/23 19:29 36.6 C 79 20 117/77 94 07/01/23 16:21 73 07/01/23 16:00 68 19 123/72 94 07/01/23 12:13 36.6 C 86 18 114/65 94 O2 Del Method 07/01/23 19:29 Room Air 07/01/23 16:21 07/01/23 16:00 Room Air 07/01/23 12:13 Room Air PG Care Time/CCT Total # of Minutes Spent Total Time Spent with Patient: Total time spent is greater than 50% in coordination of care (as documented) at patient's floor/unit and/or counseling patient: Coding Level of Care Code 63716 SUB INP/OBS CARE 2/35MIN Diagnoses Acute ischemic multifocal multiple vascular territories stroke I63.89 Lung mass R91.8 IHSAN (acute kidney injury) N17.9 GERD (gastroesophageal reflux disease) K21.9 HLD (hyperlipidemia) E78.5 BPH w urinary obs/LUTS N40.1; N13.8 Tremor of both hands R25.1 Tobacco abuse Z72.0
[2023-07-02] MEDS: metroNIDAZOLE 500 MG/100 ML BAG IV SCH ×3 (02:13→18:39)
[2023-07-02] MEDS: CEFEPIME 2,000 MG in SYRINGE 0 ML IV SCH ×2 (06:12→18:38)
[2023-07-02] MEDS: ONDANSETRON INJ 2 MG/ML 2 ML VIAL IV PRN (06:24)
[2023-07-02 07:42] LABS: Hemoglobin 11.7 g/dl (14.0-18.0); Mean Corpuscular Hemoglobin 28.8 pg (25.0-34.0); Mean Corpuscular Hgb Conc 33.4 g/dL (32.0-36.0); Mean Corpuscular Volume 86.2 fL (80.0-100.0); Mean Platelet Volume 10.2 fL (9.4-12.4); Platelet Count 259 K/uL (130-400); RDW Coefficient of Variation 16.3 % (11.5-14.5); RDW Standard Deviation 51.7 fL (36.4-46.3); Red Blood Count 4.06 M/uL (4.70-6.10); White Blood Count 6.64 K/ul (4.8-10.8)
[2023-07-02 08:10] LABS: BUN Creatinine Ratio 21.5 (10-20); Calcium 7.8 mg/dl (8.6-10.3); Creatinine Clr Calc Pharmacy 51.1 ml/min; Est GFR (African American) 66.5 ml/min; Est GFR (Non-African American) 57.4 ml/min; Potassium 4.1 mmol/L (3.5-5.1)
[2023-07-02] MEDS: PLASMA-LYTE A 1,000 ML IV SCH ×3 (08:26→23:45)
[2023-07-02] MEDS: ASPIRIN 81 MG ECTAB PO SCH (08:27)
[2023-07-02] MEDS: ATORVASTATIN 40 MG TAB PO SCH (08:27)
--- NOTE | 2023-07-02 17:27 | Pulmonology Progress Note ---
Date of Service July 02, 2023 Assessment & Plan (1) Lung mass: (2) Acute ischemic multifocal multiple vascular territories stroke: (3) CKD (chronic kidney disease), stage III: Chronic kidney disease stage 3 subtype: unspecified whether 3a or 3b Qualified Code(s): N18.30 - Chronic kidney disease, stage 3 unspecified (4) Aspiration into lower respiratory tract: Encounter type: sequela Qualified Code(s): T17.800S - Unspecified foreign body in other parts of respiratory tract causing asphyxiation, sequela (5) Pneumonia: Pneumonia type: aspiration pneumonia Aspiration pneumonia type: unspecified Laterality: right Lung location: lower lobe of lung Qualified Code(s): J69.0 - Pneumonitis due to inhalation of food and vomit Plan 78 year old male with 2 year history of progressive LE weakness, confusion, and multiple falls presents to ED after an outpatient MRI revealed bilateral acute infarcts suspicious for a proximal thromboembolic source. Incidentally on admission chest CT showed a RLL rim-enhancing mass. s/p bronch with BAL and brushing on 06/29. cytology negative. cultures negative, rancho noted and not of clinical significance. empiric cefepime and flagyl d5, OK to de-escalate to unasyn and eventually transition to augmentin upon discharge for a total 14 day of antibiotic treatment . Abd/pelvic CT negat keith for malignancy. CTA chest negative for PE. He needs repeat chest CT in 4 weeks and close follow up with pulmonary. is considering going to pulmonary providers in patient's healthcare network. Admission and Anticipated Discharge Date Admission Date: June 27, 2023 Subjective no complaints. eating dinner. Physical Exam Constitutional: average body habitus Respiratory: normal respiratory effort Auscultation: + diminished lung sounds and + rhonchi Cardiovascular: Rate/Rhythm: regular rate and regular rhythm Extremities: + edema Skin: no rashes and no lesions Neurologic: CN's II-XI intact bilaterally, moves all extremities and awake Speech / Cognition: + abnormal cognition; no expressive aphasia and no receptive aphasia Psychiatric: Orientation: alert and oriented to person Cognition: language grossly intact Insight: + limited insight Results & Data Results & Data Vital Signs (Past 12 Hours) Vital Signs Temp Pulse Pulse Resp BP Pulse Ox O2 Del Method 07/02/23 16:00 36.8 C 78 18 127/75 92 Room Air 07/02/23 12:00 36.7 C 87 18 125/89 93 Room Air 07/02/23 08:00 37.0 C 95 H 19 117/65 91 Room Air 07/02/23 07:56 65 PG Care Time/CCT Total # of Minutes Spent Total Time Spent with Patient: Total time spent is greater than 50% in coordination of care (as documented) at patient's floor/unit and/or counseling patient: Coding Level of Care Code 30269 SUB INP/OBS CARE 2/35MIN Diagnoses Lung mass R91.8 Acute ischemic multifocal multiple vascular territories stroke I63.89 Stage 3 chronic kidney disease, unspecified whether stage 3a or 3b CKD N18.30 Chronic kidney disease stage 3 subtype: unspecified whether 3a or 3b Aspiration into lower respiratory tract, sequela T17.800S Encounter type: sequela Aspiration pneumonia of right lower lobe, unspecified aspiration pneumonia type J69.0 Pneumonia type: aspiration pneumonia Aspiration pneumonia type: unspecified Laterality: right Lung location: lower lobe of lung
--- NOTE | 2023-07-02 22:09 | Hospitalist Progress Note ---
Date of Service July 02, 2023 Assessment & Plan (1) Acute ischemic multifocal multiple vascular territories stroke: Plan: Acute multifocal ischemic stroke Patient had an outpatient MRI ordered for progressive weakness and trauma. This was performed the day of admission at approximately 11 AM, patient referred to ER due to acute findings - Outpatient MRI showed multifocal subcentimeter embolic infarcts in multiple vascular territories, involving the cerebellar hemispheres bilateral expiratory lobes and bilateral frontal lobes. -Possibly thromboembolic in origin, also given newly diagnosed lung mass with adjacent thrombus. -Neurologist on consult, continue aspirin and statin. -Although CTA showed 75% stenosis at the left carotid artery bifurcation, disease unlikely the reason for his stroke. -Swallow eval was done, showed some silent aspiration -2D echo showed grade 1 diastolic dysfunction, no shunts. -Appreciate neurology recommendations. -Physical therapy: appears patient may need rehab (2) Lung mass: Plan: Lung mass, complicated effusion Extensive smoking history, more than 50 pack years in remission for the last 3 to 4 years This was not noted on prior x-rays,? Interval development versus previously obscured by cardiac silhouette. - Chronic intermittent cough, no hemoptysis or change in sputum production. Occasional aspiration events in the past, no recent change in cough CTchest with contrast suspicious for bronchogenic malignancy with tumor thrombus. - Patient covered with broad-spectrum antibiotics,cefepime/flagyl w. MRSA pending. If MRSA+ --> vanc vs linezolid for coverage. -Appreciate pulmonology, bronchoscopy completed -Family meeting completed with palliative care. Family will have discussion with themselves regarding POA. Appears this lesion is an infection and not cancer given that the biopsy was negative. Diet switched to minced and moist with mildy thick nectar. (3) IHSAN (acute kidney injury): Plan: Baseline creatinine around 1.11.4 currently 1.54 -Avoid nephrotoxics (4) GERD (gastroesophageal reflux disease): Plan: Continue Protonix (5) HLD (hyperlipidemia): Plan: Simvastatin converted to atorvastatin 40 mg when able to tolerate/meds (6) BPH w urinary obs/LUTS: Plan: Continue Flomax/finasteride Bladder scan every shift, if PVR greater than 350 cath (7) Tremor of both hands: Plan: CVA as nosted (8) Tobacco abuse: Plan: In remission for 3 years, no patch required. No outpatietn chest CT for comparison per pt/son. See above Plan Diet: regular CODE STATUS: Full code per patient and POA at bedside Disposition: PCU Admission and Anticipated Discharge Date Admission Date: June 27, 2023 Subjective 78 yo male appears more lethargic today. He is having difficulty with his current diet as he has been pocketing his food in his cheek. Review of Systems Review of Systems: All systems reviewed & are unremarkable except as noted in HPI & below Physical Exam Physical Exam: The patient is awake, alert and oriented 3, lying in bed and in no acute distress. HEENT--PERRL, EOMI, mucous membranes and oropharynx mildly dry Neck--supple. No JVD. No bruits. Thyroid normal, trachea midline, no adenopathy. Heart--normal S1 and S2. No murmurs, rubs or gallops. Lungs--clear bilaterally, no respiratory distress, no accessory muscle use. Abdomen--normal bowel sounds and soft. Mild epigastric and left sided abdominal pain Extremities--no cyanosis or clubbing. No edema. Dermatologic--normal skin turgor, normal color, no abnormal lymph nodes, no rash. Neurologic--cranial nerves II through XII grossly intact. Rheumatologic--normal range of motion. Psychiatric--normal affect. Results & Data Results & Data Vital Signs (Past 12 Hours) Vital Signs Temp Pulse Resp BP Pulse Ox O2 Del Method 07/02/23 20:13 37.4 C 84 18 126/81 93 Room Air 07/02/23 16:00 36.8 C 78 18 127/75 92 Room Air 07/02/23 12:00 36.7 C 87 18 125/89 93 Room Air PG Care Time/CCT Total # of Minutes Spent Total Time Spent with Patient: Total time spent is greater than 50% in coordination of care (as documented) at patient's floor/unit and/or counseling patient: Coding Level of Care Code 51696 SUB INP/OBS CARE 2/35MIN Diagnoses Acute ischemic multifocal multiple vascular territories stroke I63.89 Lung mass R91.8 IHSAN (acute kidney injury) N17.9 GERD (gastroesophageal reflux disease) K21.9 HLD (hyperlipidemia) E78.5 BPH w urinary obs/LUTS N40.1; N13.8 Tremor of both hands R25.1 Tobacco abuse Z72.0
[2023-07-03] MEDS: metroNIDAZOLE 500 MG/100 ML BAG IV SCH ×3 (02:05→17:25)
[2023-07-03] MEDS: CEFEPIME 2,000 MG in SYRINGE 0 ML IV SCH ×2 (05:18→17:24)
[2023-07-03 06:24] LABS: Hematocrit (blood only) 37.8 % (42.0-52.0); Hemoglobin 12.6 g/dl (14.0-18.0); Mean Corpuscular Hgb Conc 33.3 g/dL (32.0-36.0); Mean Corpuscular Volume 87.1 fL (80.0-100.0); Platelet Count 295 K/uL (130-400); RDW Coefficient of Variation 16.3 % (11.5-14.5); RDW Standard Deviation 51.7 fL (36.4-46.3); Red Blood Count 4.34 M/uL (4.70-6.10)
[2023-07-03 07:49] LABS: Albumin Level 1.6 gm/dl (3.4-5.0); Bilirubin,Total 0.2 mg/dl (0.2-1.0); Calcium 7.6 mg/dl (8.6-10.3); Potassium 4.1 mmol/L (3.5-5.1)
[2023-07-03 07:55] LABS: Albumin Globulin Ratio 0.6 (0.9-2); BUN Creatinine Ratio 22.6 (10-20); C Reactive Protein 0.91 mg/dl (0-0.5); Creatinine Clr Calc Pharmacy 46.5 ml/min; Est GFR (African American) 59.3 ml/min; Est GFR (Non-African American) 51.2 ml/min; Globulin 2.7 gm/dl (2.5-4.0); Total Protein 4.3 gm/dl (6.0-8.3)
[2023-07-03] MEDS: ATORVASTATIN 40 MG TAB PO SCH (08:41)
[2023-07-03] MEDS: ASPIRIN 81 MG ECTAB PO SCH (08:41)
--- NOTE | 2023-07-03 08:51 | Pulmonology Progress Note ---
Date of Service July 03, 2023 Assessment & Plan (1) Lung mass: (2) Aspiration into lower respiratory tract: Encounter type: sequela Qualified Code(s): T17.800S - Unspecified foreign body in other parts of respiratory tract causing asphyxiation, sequela (3) Pneumonia: Aspiration pneumonia type: unspecified Laterality: right Lung location: lower lobe of lung Pneumonia type: aspiration pneumonia Qualified Code(s): J69.0 - Pneumonitis due to inhalation of food and vomit Plan IMPRESSION: 78-year-old male presenting with multiple small strokes with associated finding of RIGHT lower lobe concerning mass. RECOMMENDATIONS: 1. Lung mass - RIGHT lower lobe rim-enhancing lesion noted on admission CT. Patient underwent bronchoscopy with BAL on 06/29. Cytology and cultures have been negative to this point. Patient is currently saturating well on room air. Certainly, in the setting of multiple CVAs and increasing weakness, this could this could represent a pulmonary abscess versus atypical style pneumonia. Regardless, the patient is undergone bronchoscopy and does not require further pulmonary intervention at this time. We will de-escalate the patient's antibiotics to oral Augmentin with anticipated discharge soon. Patient will require 4 to 6 weeks of oral antibiotics with a follow-up noncontrast chest CT after completion of antibiotics. The patient can follow-up with his primary care provider or pulmonary at at the time of completion of antibiotics and completion of CT scan. 2. Concerns for aspiration events -appreciate CLINICAL DATA SPECIALIST recommendations. Thank you for allowing us to participate in the care of this pleasant patient. Pulmonary medicine will sign off at this time. Admission and Anticipated Discharge Date Admission Date: June 27, 2023 Supervising Physician Co-Signing Physician Notes Patient seen and examined. Discussed with off going property field inspector and MICHAEL. Agree with AP as noted. Cytology negative but the mass requires close clinical follow-up should the patient and family elect to pursue additional clinical evaluation. For now would recommend treatment with Unasyn or Augmentin for at least 4 weeks and then repeat noncontrast CT scan of the chest. If the abnormality persists, consideration for repeat bronchoscopy or outpatient PET scanning might be appropriate. I think the patient would do poorly with intubation mechanical ventilation. Hospitalist and palliative care notes indicate full code. It is unlikely that aggressive interventions such as intubation mechanical ventilation would alter the patient's underlying comorbid conditions. Pulmonary will sign off at this point in time. Feel free to contact us with additional questions or concerns. Subjective Patient was seen and evaluated by myself at bedside. He is currently doing his breakfast. He offers no complaints of difficulty breathing, chest pain, or worsening cough. Review of Systems Review of Systems: Unchanged from admission. Physical Exam Physical Exam: VITAL SIGNS - Vital signs and nursing notes were reviewed. GENERAL - 78-year-old male appearing his stated age who is in no acute distress. Communicates well with provider and answers questions appropriately. LUNGS - Chest wall evaluation demonstrates normal chest wall A:P diameter. Auscultation reveals coarse breath sound to the RIGHT sided lung base. No wheezes or rales appreciated. CARDIAC - RRR with S1/S2. No murmur, rubs, or gallops appreciated. ABDOMEN - BS normoactive all four quadrants. No tenderness, palpable masses, or ascites noted. Results & Data Results & Data Vital Signs (Past 12 Hours) Vital Signs Temp Pulse Pulse Resp BP Pulse Ox O2 Del Method 07/03/23 07:45 36.7 C 87 20 119/76 92 Room Air 07/03/23 02:56 37.4 C 79 20 127/76 91 Room Air 07/03/23 00:24 85 07/02/23 23:03 36.6 C 74 20 124/80 Room Air PG Care Time/CCT Total # of Minutes Spent Total Time Spent with Patient: Total time spent is greater than 50% in coordination of care (as documented) at patient's floor/unit and/or counseling patient: Coding Level of Care Code 73925 SUB INP/OBS CARE 2/35MIN Diagnoses Lung mass R91.8 Aspiration into lower respiratory tract, sequela T17.800S Encounter type: sequela Aspiration pneumonia of right lower lobe, unspecified aspiration pneumonia type J69.0 Aspiration pneumonia type: unspecified Laterality: right Lung location: lower lobe of lung Pneumonia type: aspiration pneumonia
[2023-07-03] MEDS: ONDANSETRON INJ 2 MG/ML 2 ML VIAL IV PRN (10:27)
[2023-07-03] MEDS ORDERED: FUROSEMIDE INJ 20 MG/2 ML VIAL IV ONE (18:50)
--- NOTE | 2023-07-03 22:36 | Hospitalist Progress Note ---
Date of Service July 03, 2023 Assessment & Plan (1) Lung mass: (2) Aspiration into lower respiratory tract: (3) Pneumonia: (4) Acute ischemic multifocal multiple vascular territories stroke: Plan: Acute multifocal ischemic stroke Patient had an outpatient MRI ordered for progressive weakness and trauma. This was performed the day of admission at approximately 11 AM, patient referred to ER due to acute findings - Outpatient MRI showed multifocal subcentimeter embolic infarcts in multiple vascular territories, involving the cerebellar hemispheres bilateral expiratory lobes and bilateral frontal lobes. -Possibly thromboembolic in origin, also given newly diagnosed lung mass with adjacent thrombus. -Neurologist on consult, continue aspirin and statin. -Although CTA showed 75% stenosis at the left carotid artery bifurcation, disease unlikely the reason for his stroke. -Swallow eval was done, showed some silent aspiration -2D echo showed grade 1 diastolic dysfunction, no shunts. -Appreciate neurology recommendations. -Physical therapy: appears patient may need rehab [place] patient has been waxing and waning. Could be a componenet of hospital acquried delirium. Holding IVF. (5) Lung mass: Plan: Lung mass, complicated effusion Extensive smoking history, more than 50 pack years in remission for the last 3 to 4 years This was not noted on prior x-rays,? Interval development versus previously obscured by cardiac silhouette. - Chronic intermittent cough, no hemoptysis or change in sputum production. Occasional aspiration events in the past, no recent change in cough CTchest with contrast suspicious for bronchogenic malignancy with tumor thrombus. - Patient covered with broad-spectrum antibiotics,cefepime/flagyl w. MRSA pending. If MRSA+ --> vanc vs linezolid for coverage. -Appreciate pulmonology, bronchoscopy completed -Family meeting completed with palliative care. Family will have discussion with themselves regarding POA. Appears this lesion is an infection and not cancer given that the biopsy was negative. Diet switched to minced and moist with mildy thick nectar. (6) IHSAN (acute kidney injury): Plan: Baseline creatinine around 1.11.4 currently 1.54 -Avoid nephrotoxics (7) GERD (gastroesophageal reflux disease): Plan: Continue Protonix (8) HLD (hyperlipidemia): Plan: Simvastatin converted to atorvastatin 40 mg when able to tolerate/meds (9) BPH w urinary obs/LUTS: Plan: Continue Flomax/finasteride Bladder scan every shift, if PVR greater than 350 cath (10) Tremor of both hands: Plan: CVA as nosted (11) Tobacco abuse: Plan: In remission for 3 years, no patch required. No outpatietn chest CT for comparison per pt/son. See above Plan Diet: regular CODE STATUS: Full code per patient and POA at bedside Disposition: PCU Admission and Anticipated Discharge Date Admission Date: June 27, 2023 Subjective Patient reports no new symptoms. Review of Systems Review of Systems: All systems reviewed & are unremarkable except as noted in HPI & below Physical Exam Physical Exam: The patient is awake, alert, oriented to person, lying in bed and in no acute distress. HEENT--PERRL, EOMI, mucous membranes and oropharynx mildly dry Neck--supple. No JVD. No bruits. Thyroid normal, trachea midline, no adenopathy. Heart--normal S1 and S2. No murmurs, rubs or gallops. Lungs--clear bilaterally, no respiratory distress, no accessory muscle use. Abdomen--normal bowel sounds and soft. Mild epigastric and left sided abdominal pain Extremities--no cyanosis or clubbing. No edema. Dermatologic--normal skin turgor, normal color, no abnormal lymph nodes, no rash. Neurologic--cranial nerves II through XII grossly intact. Rheumatologic--normal range of motion. Psychiatric--normal affect. Patient is edematous Results & Data Results & Data Vital Signs (Past 12 Hours) Vital Signs Temp Pulse Pulse Resp BP Pulse Ox O2 Del Method 07/03/23 20:17 37.3 C 68 20 158/86 H 95 Room Air 07/03/23 19:00 Room Air 07/03/23 15:31 76 07/03/23 15:22 Room Air 07/03/23 15:00 36.8 C 83 19 127/73 93 Room Air 07/03/23 12:51 84 07/03/23 11:00 36.8 C 90 19 102/85 92 Room Air PG Care Time/CCT Total # of Minutes Spent Total Time Spent with Patient: Total time spent is greater than 50% in coordination of care (as documented) at patient's floor/unit and/or counseling patient: Coding Level of Care Code 77406 SUB INP/OBS CARE 2/35MIN Diagnoses Lung mass R91.8 Aspiration into lower respiratory tract, sequela T17.800S Encounter type: sequela Aspiration pneumonia of right lower lobe, unspecified aspiration pneumonia type J69.0 Aspiration pneumonia type: unspecified Laterality: right Lung location: lower lobe of lung Pneumonia type: aspiration pneumonia Acute ischemic multifocal multiple vascular territories stroke I63.89 IHSAN (acute kidney injury) N17.9 GERD (gastroesophageal reflux disease) K21.9 HLD (hyperlipidemia) E78.5 BPH w urinary obs/LUTS N40.1; N13.8 Tremor of both hands R25.1 Tobacco abuse Z72.0 (2) Aspiration into lower respiratory tract Encounter type: sequela Qualified Code(s): T17.800S - Unspecified foreign body in other parts of respiratory tract causing asphyxiation, sequela (3) Pneumonia Aspiration pneumonia type: unspecified Laterality: right Lung location: lower lobe of lung Pneumonia type: aspiration pneumonia Qualified Code(s): J69.0 - Pneumonitis due to inhalation of food and vomit
[2023-07-04] MEDS: metroNIDAZOLE 500 MG/100 ML BAG IV SCH ×3 (02:12→17:34)
[2023-07-04] MEDS: CEFEPIME 2,000 MG in SYRINGE 0 ML IV SCH ×2 (05:31→17:34)
[2023-07-04] MEDS: ASPIRIN 81 MG ECTAB PO SCH (07:46)
[2023-07-04] MEDS: ATORVASTATIN 40 MG TAB PO SCH (07:46)
[2023-07-04 13:23] LABS: Hematocrit (blood only) 36.3 % (42.0-52.0); Mean Corpuscular Hemoglobin 28.6 pg (25.0-34.0); Mean Corpuscular Hgb Conc 33.1 g/dL (32.0-36.0); Mean Corpuscular Volume 86.4 fL (80.0-100.0); Mean Platelet Volume 10.8 fL (9.4-12.4); Platelet Count 305 K/uL (130-400); RDW Coefficient of Variation 16.1 % (11.5-14.5); RDW Standard Deviation 50.9 fL (36.4-46.3); White Blood Count 8.24 K/ul (4.8-10.8)
[2023-07-04 13:34] LABS: BUN Creatinine Ratio 23.5 (10-20); C Reactive Protein 0.59 mg/dl (0-0.5); Calcium 8.1 mg/dl (8.6-10.3); Creatinine Clr Calc Pharmacy 50.7 ml/min; Est GFR (African American) 59.9 ml/min; Est GFR (Non-African American) 51.7 ml/min; Potassium 4.4 mmol/L (3.5-5.1)
[2023-07-04 14:16] LABS: Folate (Folic Acid),Ser orPlas 14.06 ng/ml (>5.38)
[2023-07-04 14:48] LABS: Lyme Ab IgG w/WB Rflx Negative (Negative); Lyme Ab IgM w/WB Rflx Negative (Negative)
[2023-07-04] MEDS ORDERED: FUROSEMIDE 40 MG/4 ML VIAL IV ONE (18:13)
--- NOTE | 2023-07-04 22:13 | Hospitalist Progress Note ---
Date of Service July 04, 2023 Assessment & Plan (1) Lung mass: (2) Aspiration into lower respiratory tract: (3) Pneumonia: (4) Acute ischemic multifocal multiple vascular territories stroke: Plan: Acute multifocal ischemic stroke Patient had an outpatient MRI ordered for progressive weakness and trauma. This was performed the day of admission at approximately 11 AM, patient referred to ER due to acute findings - Outpatient MRI showed multifocal subcentimeter embolic infarcts in multiple vascular territories, involving the cerebellar hemispheres bilateral expiratory lobes and bilateral frontal lobes. -Possibly thromboembolic in origin, also given newly diagnosed lung mass with adjacent thrombus. -Neurologist on consult, continue aspirin and statin. -Although CTA showed 75% stenosis at the left carotid artery bifurcation, disease unlikely the reason for his stroke. -Swallow eval was done, showed some silent aspiration -2D echo showed grade 1 diastolic dysfunction, no shunts. -Appreciate neurology recommendations. -Physical therapy: appears patient may need rehab Mentally patient has been waxing and waning. Could be a component of hospital acquired delirium. Holding IVF. Placed on IV lasix (5) IHSAN (acute kidney injury): Plan: Baseline creatinine around 1.11.4 currently 1.54 -Avoid nephrotoxics (6) GERD (gastroesophageal reflux disease): Plan: Continue Protonix (7) HLD (hyperlipidemia): Plan: Simvastatin converted to atorvastatin 40 mg when able to tolerate/meds (8) BPH w urinary obs/LUTS: Plan: Continue Flomax/finasteride Bladder scan every shift, if PVR greater than 350 cath (9) Tremor of both hands: Plan: CVA as nosted (10) Tobacco abuse: Plan: In remission for 3 years, no patch required. No outpatietn chest CT for comparison per pt/son. See above Plan Diet: regular CODE STATUS: Full code per patient and POA at bedside Disposition: PCU Admission and Anticipated Discharge Date Admission Date: June 27, 2023 Subjective 78 yo male reports no new symptoms. He contiues to have swelling in his arms and scrotum. Review of Systems Review of Systems: All systems reviewed & are unremarkable except as noted in HPI & below Physical Exam Physical Exam: The patient is awake, alert, oriented to person, place, and time. lying in bed and in no acute distress. HEENT--PERRL, EOMI, mucous membranes and oropharynx mildly dry Neck--supple. No JVD. No bruits. Thyroid normal, trachea midline, no adenopathy. Heart--normal S1 and S2. No murmurs, rubs or gallops. Lungs--clear bilaterally, no respiratory distress, no accessory muscle use. Abdomen--normal bowel sounds and soft. Mild epigastric and left sided abdominal pain Extremities--no cyanosis or clubbing. edema noted on arms and scrotum Neurologic--cranial nerves II through XII grossly intact. Rheumatologic--normal range of motion. Psychiatric--normal affect. Results & Data Results & Data Vital Signs (Past 12 Hours) Vital Signs Temp Pulse Resp BP Pulse Ox O2 Del Method 07/04/23 20:00 36.3 C L 82 18 120/64 94 Room Air 07/04/23 15:00 37.0 C 73 18 125/76 95 Room Air 07/04/23 11:00 36.7 C 81 18 118/81 93 Room Air PG Care Time/CCT Total # of Minutes Spent Total Time Spent with Patient: Total time spent is greater than 50% in coordination of care (as documented) at patient's floor/unit and/or counseling patient: Coding Level of Care Code 18913 SUB INP/OBS CARE 2/35MIN Diagnoses Lung mass R91.8 Aspiration into lower respiratory tract, sequela T17.800S Encounter type: sequela Aspiration pneumonia of right lower lobe, unspecified aspiration pneumonia type J69.0 Aspiration pneumonia type: unspecified Laterality: right Lung location: lower lobe of lung Pneumonia type: aspiration pneumonia Acute ischemic multifocal multiple vascular territories stroke I63.89 IHSAN (acute kidney injury) N17.9 GERD (gastroesophageal reflux disease) K21.9 HLD (hyperlipidemia) E78.5 BPH w urinary obs/LUTS N40.1; N13.8 Tremor of both hands R25.1 Tobacco abuse Z72.0 (2) Aspiration into lower respiratory tract Encounter type: sequela Qualified Code(s): T17.800S - Unspecified foreign body in other parts of respiratory tract causing asphyxiation, sequela (3) Pneumonia Aspiration pneumonia type: unspecified Laterality: right Lung location: lower lobe of lung Pneumonia type: aspiration pneumonia Qualified Code(s): J69.0 - Pneumonitis due to inhalation of food and vomit
[2023-07-05 06:54] LABS: Hematocrit (blood only) 38.5 % (42.0-52.0); Hemoglobin 12.7 g/dl (14.0-18.0); Mean Corpuscular Hemoglobin 28.7 pg (25.0-34.0); Mean Corpuscular Volume 87.1 fL (80.0-100.0); Mean Platelet Volume 10.3 fL (9.4-12.4); Platelet Count 301 K/uL (130-400); RDW Coefficient of Variation 16.6 % (11.5-14.5); RDW Standard Deviation 52.1 fL (36.4-46.3); Red Blood Count 4.42 M/uL (4.70-6.10); White Blood Count 7.07 K/ul (4.8-10.8)
[2023-07-05 07:20] LABS: BUN Creatinine Ratio 26.2 (10-20); Creatinine Clr Calc Pharmacy 56.1 ml/min; Est GFR (African American) 65.9 ml/min; Est GFR (Non-African American) 56.8 ml/min; Potassium 3.9 mmol/L (3.5-5.1)
[2023-07-05] MEDS: ASPIRIN 81 MG ECTAB PO SCH (08:00)
[2023-07-05] MEDS: ATORVASTATIN 40 MG TAB PO SCH (08:01)
--- NOTE | 2023-07-05 09:53 | Communication Note ---
Date of Service: July 05, 2023 Brief Palliative Medicine Note Family meeting held last week and GOC clarified. There appeared to be family conflict between and son in law re POA paperwork completed without her awareness. Family advised to further discuss. preferred to reach out to Pall med if she felt another discussion was needed. There has been no further requests and plan of care at this time is requesting patient go to [facility] for rehab. Pall med will sign off as there are no acute/urgent inpatient pall med needs. This patient can be followed in routine outpatient pall med clinic if desired. no charge submitted TS 28min Thank you for allowing us to participate in the ongoing care of this patient. Please don't hesitate to call or page with any additional concerns. Dr. Bambi Galvan DNP Director, Palliative Care
[2023-07-05] MEDS ORDERED: FUROSEMIDE 40 MG/4 ML VIAL IV ONE (10:48)
[2023-07-05] MEDS: LEVOTHYROXINE SODIUM 25 MCG TABLET PO SCH (12:56)
--- NOTE | 2023-07-05 13:26 | Magnetic Resonance Report ---
MR brain wo con CLINICAL HISTORY: strokes TECHNIQUE: Multiplanar and multisequence MR images of the brain were obtained without intravenous con trast. Comparison: Comparison is made to MRI brain 06/27/2023 FINDINGS: Multiple foci of restricted diffusion are seen, with interval resolution of a few previously noted em bolic foci. Foci of T2 and FLAIR hyperintensity are noted in the paraventricular areas consistent wit h chronic small vessel ischemic disease. Ex vacuo ventriculomegaly and sulcal enlargement is noted co mpatible with diffuse volume loss. No mass is seen. There is no mass effect or midline shift. There i s no evidence of acute intraparenchymal hemorrhage. No extra axial fluid collections are seen. The co rpus callosum, pituitary gland, and cerebellar tonsils appear grossly unremarkable. Flow voids of the major intracranial arterial vessels are identified. The imaged portions of the para nasal sinuses, mastoid air cells, and orbits are unremarkable. IMPRESSION: Again seen are multiple foci of restricted diffusion compatible with proximal thromboembolic source. No definite new embolic foci are seen. No hemorrhagic conversion. ACT 112: Negative or not required by law. Electronically signed by: Daerk Gray M.D. 07/05/2023 1:25 PM
[2023-07-05] MEDS: AMOXICILLIN/CLAVULANATE 875 MG TAB PO SCH (17:31)
[2023-07-05 19:26] LABS: Source BALRLL
[2023-07-05] MEDS: FUROSEMIDE 40 MG/4 ML VIAL IV SCH (20:33)
--- NOTE | 2023-07-05 22:01 | Hospitalist Progress Note ---
Date of Service July 05, 2023 Assessment & Plan (1) Lung mass: (2) Aspiration into lower respiratory tract: (3) Pneumonia: (4) Acute ischemic multifocal multiple vascular territories stroke: Plan: Acute multifocal ischemic stroke Patient had an outpatient MRI ordered for progressive weakness and trauma. This was performed the day of admission at approximately 11 AM, patient referred to ER due to acute findings - Outpatient MRI showed multifocal subcentimeter embolic infarcts in multiple vascular territories, involving the cerebellar hemispheres bilateral expiratory lobes and bilateral frontal lobes. -Possibly thromboembolic in origin -Neurologist on consult, continue aspirin and statin. -Although CTA showed 75% stenosis at the left carotid artery bifurcation, disease unlikely the reason for his stroke. -Swallow eval was done, showed some silent aspiration -2D echo showed grade 1 diastolic dysfunction, no shunts. -Appreciate neurology recommendations. -Physical therapy: appears patient may need rehab Mentally patient has been waxing and waning. Could be a component of hospital acquired delirium. Edema in genitals and upper extremity: Holding IVF. Placed on IV lasix, improving on 07/05 Lung mass: appears to not be malignant. On antibiotics. BAL showing rancho. D/W pulmonary no need for antifungal. WIll treat with augmentin for 4-6 weeks will need followup CT. (5) IHSAN (acute kidney injury): Plan: Baseline creatinine around 1.11.4 -Avoid nephrotoxics (6) GERD (gastroesophageal reflux disease): Plan: Continue Protonix (7) HLD (hyperlipidemia): Plan: Simvastatin converted to atorvastatin 40 mg when able to tolerate/meds (8) BPH w urinary obs/LUTS: Plan: Continue Flomax/finasteride Bladder scan every shift, if PVR greater than 350 cath (9) Tremor of both hands: Plan: CVA as nosted (10) Tobacco abuse: Plan: In remission for 3 years, no patch required. No outpatietn chest CT for comparison per pt/son. See above Plan Diet: regular CODE STATUS: Full code per patient and POA at bedside Disposition: PCU Admission and Anticipated Discharge Date Admission Date: June 27, 2023 Subjective Patient reports no new symptoms. Review of Systems Review of Systems: All systems reviewed & are unremarkable except as noted in HPI & below Physical Exam Physical Exam: The patient is awake, alert, oriented to person, place, and time. lying in bed and in no acute distress. HEENT--PERRL, EOMI, mucous membranes and oropharynx mildly dry Neck--supple. No JVD. No bruits. Thyroid normal, trachea midline, no adenopathy. Heart--normal S1 and S2. No murmurs, rubs or gallops. Lungs--clear bilaterally, no respiratory distress, no accessory muscle use. Abdomen--normal bowel sounds and soft. Mild epigastric and left sided abdominal pain Extremities--no cyanosis or clubbing. edema noted on arms, penis and scrotum Neurologic--cranial nerves II through XII grossly intact. Rheumatologic--normal range of motion. Psychiatric--normal affect. Results & Data Results & Data Vital Signs (Past 12 Hours) Vital Signs Temp Pulse Pulse Pulse Resp BP Pulse Ox 07/05/23 20:26 36.8 C 82 19 124/68 95 07/05/23 17:17 36.4 C L 111 H 125/80 92 07/05/23 14:00 110 H O2 Del Method 07/05/23 20:26 Room Air 07/05/23 17:17 Room Air 07/05/23 14:00 PG Care Time/CCT Total # of Minutes Spent Total Time Spent with Patient: Total time spent is greater than 50% in coordination of care (as documented) at patient's floor/unit and/or counseling patient: Coding Level of Care Code 19169 SUB INP/OBS CARE 235MIN Diagnoses Lung mass R91.8 Aspiration into lower respiratory tract, sequela T17.800S Encounter type: sequela Aspiration pneumonia of right lower lobe, unspecified aspiration pneumonia type J69.0 Aspiration pneumonia type: unspecified Laterality: right Lung location: lower lobe of lung Pneumonia type: aspiration pneumonia Acute ischemic multifocal multiple vascular territories stroke I63.89 IHSAN (acute kidney injury) N17.9 GERD (gastroesophageal reflux disease) K21.9 HLD (hyperlipidemia) E78.5 BPH w urinary obs/LUTS N40.1; N13.8 Tremor of both hands R25.1 Tobacco abuse Z72.0 (2) Aspiration into lower respiratory tract Encounter type: sequela Qualified Code(s): T17.800S - Unspecified foreign body in other parts of respiratory tract causing asphyxiation, sequela (3) Pneumonia Aspiration pneumonia type: unspecified Laterality: right Lung location: lower lobe of lung Pneumonia type: aspiration pneumonia Qualified Code(s): J69.0 - Pneumonitis due to inhalation of food and vomit
--- NOTE | 2023-07-05 23:22 | Electrocardiogram Report ---
Test Reason : Blood Pressure : / mmHG Vent. Rate : 084 BPM Atrial Rate : 084 BPM P-R Int : 144 ms QRS Dur : 076 ms QT Int : 364 ms P-R-T Axes : 057 050 080 degrees QTc Int : 430 ms Sinus rhythm with Premature atrial complexes Low voltage QRS Nonspecific T wave abnormality Abnormal ECG When compared with ECG of 27-JUN-2023 12:46, Premature atrial complexes are now Present Nonspecific T wave abnormality now evident in Lateral leads Confirmed by Filiberto Jorge ([id number]) on 07/05/2023 11:22:32 PM Referred By: REFERRED SELF Confirmed By:Filiberto Jorge
[2023-07-06] MEDS: LEVOTHYROXINE SODIUM 25 MCG TABLET PO SCH (06:25)
[2023-07-06 07:44] LABS: Hematocrit (blood only) 34.6 % (42.0-52.0); Hemoglobin 11.8 g/dl (14.0-18.0); Mean Corpuscular Hemoglobin 29.1 pg (25.0-34.0); Mean Corpuscular Hgb Conc 34.1 g/dL (32.0-36.0); Mean Corpuscular Volume 85.4 fL (80.0-100.0); Mean Platelet Volume 10.8 fL (9.4-12.4); Platelet Count 300 K/uL (130-400); RDW Coefficient of Variation 16.3 % (11.5-14.5); RDW Standard Deviation 51.1 fL (36.4-46.3); Red Blood Count 4.05 M/uL (4.70-6.10)
[2023-07-06 08:00] LABS: BUN Creatinine Ratio 29.4 (10-20); Est GFR (African American) 67.9 ml/min; Est GFR (Non-African American) 58.6 ml/min; Potassium 3.8 mmol/L (3.5-5.1)
[2023-07-06] MEDS: ATORVASTATIN 40 MG TAB PO SCH (08:07)
[2023-07-06] MEDS: FUROSEMIDE 40 MG/4 ML VIAL IV SCH (08:07)
[2023-07-06] MEDS: AMOXICILLIN/CLAVULANATE 875 MG TAB PO SCH (08:07)
--- NOTE | 2023-07-06 08:17 | Hospitalist Progress Note ---
Date of Service July 06, 2023 Assessment & Plan (1) Lung mass: (2) Aspiration into lower respiratory tract: (3) Pneumonia: (4) Acute ischemic multifocal multiple vascular territories stroke: Plan: Acute multifocal ischemic stroke Patient had an outpatient MRI ordered for progressive weakness and trauma. This was performed the day of admission at approximately 11 AM, patient referred to ER due to acute findings - Outpatient MRI showed multifocal subcentimeter embolic infarcts in multiple vascular territories, involving the cerebellar hemispheres bilateral expiratory lobes and bilateral frontal lobes. -Possibly thromboembolic in origin -Neurologist on consult, continue aspirin and statin. -Although CTA showed 75% stenosis at the left carotid artery bifurcation, disease unlikely the reason for his stroke. -Swallow eval was done, showed some silent aspiration -2D echo showed grade 1 diastolic dysfunction, no shunts. -Appreciate neurology recommendations. -Physical therapy: appears patient may need rehab Mentally patient has been waxing and waning. Could be a component of hospital acquired delirium. Edema in genitals and upper extremity: Holding IVF. Placed on IV lasix, improving on 07/05 Lung mass: appears to not be malignant. On antibiotics. BAL showing rancho. D/W pulmonary no need for antifungal. WIll treat with augmentin for 4-6 weeks will need followup CT. (5) IHSAN (acute kidney injury): Plan: Baseline creatinine around 1.11.4 -Avoid nephrotoxics (6) GERD (gastroesophageal reflux disease): Plan: Continue Protonix (7) HLD (hyperlipidemia): Plan: Simvastatin converted to atorvastatin 40 mg when able to tolerate/meds (8) BPH w urinary obs/LUTS: Plan: Continue Flomax/finasteride Bladder scan every shift, if PVR greater than 350 cath (9) Tremor of both hands: Plan: CVA as nosted (10) Tobacco abuse: Plan: In remission for 3 years, no patch required. No outpatietn chest CT for comparison per pt/son. See above Plan Diet: regular CODE STATUS: Full code per patient and POA at bedside Disposition: PCU Admission and Anticipated Discharge Date Admission Date: June 27, 2023 Results & Data Results & Data Vital Signs (Past 12 Hours) Vital Signs Temp Pulse Pulse Pulse Resp BP BP 07/06/23 06:02 37 C 77 20 108/62 07/06/23 00:16 37.4 C 95 H 16 105/81 07/05/23 23:36 96 H 07/05/23 20:26 36.8 C 82 19 124/68 Pulse Ox O2 Del Method 07/06/23 06:02 95 Room Air 07/06/23 00:16 95 Room Air 07/05/23 23:36 07/05/23 20:26 95 Room Air PG Care Time/CCT Total # of Minutes Spent Total Time Spent with Patient: Total time spent is greater than 50% in coordination of care (as documented) at patient's floor/unit and/or counseling patient: Coding Diagnoses Lung mass R91.8 Aspiration into lower respiratory tract, sequela T17.800S Encounter type: sequela Aspiration pneumonia of right lower lobe, unspecified aspiration pneumonia type J69.0 Pneumonia type: aspiration pneumonia Aspiration pneumonia type: unspecified Laterality: right Lung location: lower lobe of lung Acute ischemic multifocal multiple vascular territories stroke I63.89 IHSAN (acute kidney injury) N17.9 GERD (gastroesophageal reflux disease) K21.9 HLD (hyperlipidemia) E78.5 BPH w urinary obs/LUTS N40.1; N13.8 Tremor of both hands R25.1 Tobacco abuse Z72.0 (2) Aspiration into lower respiratory tract Encounter type: sequela Qualified Code(s): T17.800S - Unspecified foreign body in other parts of respiratory tract causing asphyxiation, sequela (3) Pneumonia Pneumonia type: aspiration pneumonia Aspiration pneumonia type: unspecified Laterality: right Lung location: lower lobe of lung Qualified Code(s): J69.0 - Pneumonitis due to inhalation of food and vomit
[2023-07-06] MEDS ORDERED: VIBEGRON 75 MG TAB PO SCH (09:00)
[2023-07-06] MEDS ORDERED: POTASSIUM CHLORIDE 10 MEQ TABCR PO SCH (09:00)
[2023-07-06] MEDS ORDERED: CLOPIDOGREL BISULFATE 75 MG TAB PO SCH (09:00)
[2023-07-06] MEDS ORDERED: PANTOprazole 40 MG TAB PO SCH (09:00)
[2023-07-06] MEDS ORDERED: ENOXAPARIN INJ 40 MG/0.4 ML SYR SQ SCH (09:00)
--- NOTE | 2023-07-06 09:19 | Discharge Summary ---
Date of Service July 06, 2023 Admission HPI Per Admitting Provider Miquel Fong, 78yo M who presnts with progressive weakness over 2 years acutely worse for ~2 months. Pt is no longer able to perform ADS. 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 Miquel is seen at the bedside with his son present. He is oriented to season but not to year and is off on month by 1 (thinks it is July rather than June) and follows 1 and two-step commands with increased latency. History is somewhat limited due to mental status, collateral was obtained from son who is at bedside. Miquel has had progressive decline over the preceding 2 years and has had multiple falls with none in the last month, and an increase in periodic tremors of the hands. He and his sons deny focal weakness, but his leg strength has progressively declined bilaterally to the point where he had been having falls. He has had 1 hip fracture repair to the surgery, reports this was on the right. Over the last month voice has been shaky, has had intermittent stuttering although no dysarthria. Increased word finding latency but denies expressive and receptive aphasia. He has not had chest pain at any point. No known history of A-fib. He has not had any palpitations. Miquel is a former smoker, no current tobacco use but smoked around 1 pack/day for most of his life, quit 3-4 years ago. No prior history of stroke He was evaluated by neurology as an outpatient, due to his tremor progressive decline and confusion with word finding difficulty had an MRI ordered as outpt. MRI was performed at 11am, acute CVAs were noted, and pt was referred to ER. Denies change in breathing, has a history of tobacco use with intermittent cough on and off but no recent exacerbations. Does not notice provoking or remitting factors. Medical History: Reviewed Medications: Reviewed Surgical History: Reviewed Family history: Reviewed Allergies: Reviewed Social History: Former extensive tobacco use. No etoh use. Code Status: Full per pt. STEPHANE Pagan is POA, Pt is and is Lupe. Principal Diagnosis Acute stroke Pneumonia Discharge Exam Constitutional well developed; + not well nourished and no acute distress Eyes PERRL, conjunctivae normal, anicteric sclerae Respiratory normal respiratory effort, lungs clear to auscultation Cardiovascular Rate/Rhythm: regular rate and regular rhythm Extremities: + pedal edema (2+ b/l equal) Gastrointestinal (Abdomen) normal bowel sounds, soft, nontender, no hepatosplenomegaly Neurologic moves all extremities and awake; not confused Motor/Sensory: no pronator drift Discharge Data Allergies Allergy/AdvReac Type Severity Reaction Status Date / Time No Known Allergies Allergy Unverified 06/27/23 13:40 Consultations 06/27/23 14:25 Consult Neurology Routine 06/27/23 15:17 Consult Pulmonology Routine 06/27/23 15:50 ED Decision to Admit Stat 06/27/23 15:55 Consult Palliative Care Routine Procedures Performed Operation Date: 06/29/23 12:00 Actual Procedures p Bronchoscopy Radiology - Maciej Albrecht MD Ordered Studies 06/27/23 13:27 CT angio head w con Stat CT angio neck with con Stat 06/27/23 14:13 CT chest with contrast [CT chest diagnostic w con] Stat 06/27/23 16:36 US venous doppler LE BI Routine US venous doppler UE LT Routine 06/28/23 10:30 FL video swallow Routine 06/29/23 14:11 CTA chest wo/w con [CT angio chest wo/w con] Routine 06/29/23 14:16 CT Abd and Pelvis [CT abd pelvis IV con only] Routine 07/05/23 11:03 MR brain wo con Routine Hospital Course (1) Lung mass: Miquel Fong is a 78 year old male admitted to [facility] [address] from June 27 - 2022 due to outpatient MRI showing numerous scattered subcentimeter multivascular distribution of acute infarcts are noted within the frontal, parietal, and occipital lobes and cerebellum. He underwent stroke workup with no atrial fibrillation noted on telemetry or embolus on echocardiogram. Neurology recommended initial treatment with aspirin and clopidogrel and now just clopidogrel alone. Given multivessel infarct anticoagulation will be considered on neurology follow up. He is being discharged to [facility] and should arrange 30 day cafeteria monitor on discharge from [facility]. He was also diagnosed with a lung mass. Bronchoscopy was performed with subsequent microbiology negative. Pathology was negative for malignancy. He was treated with antibiotics and should continue on Augmentin for 6 weeks with follow up with pulmonology in 4 weeks to consider repeat CT chest. He received IV fluids during his stay which caused significant third spacing. Leggett catheter was inserted as requiring Lasix to enable significant amounts of diuresis. Lasix will be increased on discharge but recommend daily weights at [facility] to determine ongoing Lasix dosing as likely he can go back on his usual 20mg PO daily euvolemic. Leggett catheter was removed right before discharge. Recommend reinsertion if unable to void or having urine retention. (2) Aspiration into lower respiratory tract: (3) Pneumonia: (4) Acute ischemic multifocal multiple vascular territories stroke: (5) IHSAN (acute kidney injury): (6) GERD (gastroesophageal reflux disease): (7) HLD (hyperlipidemia): (8) BPH w urinary obs/LUTS: (9) Tremor of both hands: (10) Tobacco abuse: Total Time Total Time Spent Total Time Spent (In Minutes): 50 Discharge Plan Discharge Items Patient Disposition: Transfer Inpatient Rehab Fac Reason For Visit: CVA, SUSPECTED MALIGANCY Discharge Diagnosis: Acute stroke Pneumonia Activity: Resume your previous activity Non-emergency contact: Primary Care Provider Call non-emergency contact if: you have any medication questions and your symptoms worsen Follow-up/Referrals: Antonio Caceres MD [Physician] - (2 weeks f/u stroke for ?anticoagulation) Maciej Albrecht MD [Physician] - (f/u pneumonia/abscess/mass ) Chani Burrell M.D. [Primary Care Provider] - Diet: Heart Healthy Addtl Attending Provider Instructions: You were admitted to [facility] [address] from June 27 - 2022 due to outpatient MRI showing numerous scattered subcentimeter multivascular distribution of acute infarcts are noted within the frontal, parietal, and occipital lobes and cerebellum. He underwent stroke workup with no atrial fibrillation noted on telemetry or embolus on echocardiogram. Neurology recommended initial treatment with aspirin and clopidogrel initially and now just clopidogrel alone. Given multivessel infarct anticogulation will be consider on neurology follow up. Please arrange 30 day cafeteria monitor on discharge from [facility]. He was also diagnosed with a lung mass. Bronchoscopy was performed with subsequent microbiology negative. Pathology was negative for malignancy. He was treated with antibiotics and should continue on Augmentin for 6 weeks with follow up with pulmonology in 4 weeks to consider repeat CT chest. He received IV fluids during his stay which caused significant third spacing. Leggett catheter was inserted as requiring Lasix to enable significant amounts of diuresis. Lasix will be increased on discharge but recommend daily weights at [facility] to determine ongoing Lasix dosing as likely he can go back on his usual 20mg PO daily euvolemic. Leggett catheter was removed right before discharge. Recommend reinsertion if unable to void or having urine retention. Pending Studies at Discharge: No Stand-Alone Forms: My [facility], Medications to Prevent Stroke Skilled Items Patient informed of condition?: Yes DNR: No Discharge Level of Care: Acute rehab Communicable Disease: No Discharge Prognosis: Stable Lines: None Urinary Catheter: No (removed right before discharge, please reinsert if unable to void or retain) Medications and DC Order Prescriptions: New atorvastatin 40 mg Tablet 80 mg PO QAM Qty: 60 0RF clopidogrel 75 mg Tablet 75 mg PO QAM Qty: 30 0RF amoxicillin-pot clavulanate 875-125 mg Tablet 1 tab PO BIDM 35 Days Qty: 70 0RF furosemide [Lasix] 40 mg tablet 40 mg PO DAILY Qty: 30 0RF Continued potassium chloride 10 mEq tablet extended release 10 meq PO DAILY citalopram 20 mg tablet 20 mg PO QPM tamsulosin 0.4 mg capsule 0.4 mg PO HS finasteride 5 mg tablet 5 mg PO QPM pantoprazole 40 mg tablet,delayed release (DR/EC) 40 mg PO DAILY garlic 1,000 mg Capsule 1,000 mg PO QAM multivitamin Tablet 1 tab PO QAM furosemide 20 mg tablet 20 mg PO QPM PRN (Reason: Edema) vitamin A-vitamin C-vit E-min Tablet 1 tab PO DAILY Myrbetriq 25 mg tablet extended release 24 hr 25 mg PO QAM Discontinued aspirin [Paulo Low Dose Aspirin] 81 mg Tablet,Delayed Release (Dr/Ec) 81 mg PO QAM simvastatin 20 mg tablet 20 mg PO QPM meloxicam 7.5 mg tablet 7.5 mg PO HS furosemide 20 mg tablet 20 mg PO QAM Discharge Orders: Discharge Order (Routine); Ordered 07/06/23 Ordered By: Elgin Leach Admission Data Admit Date/Time: 06/27/23 15:54 Attending Provider: Elgin Leach Admit Provider: César Donato Primary Care Provider: Chani Burrell Other Providers: Antonio Caceres; Jeanie Bowers; Salima Hall; Bambi Galvan; César Donato; [facility]; [facility]; [facility],Health Coding Level of Care Code 57747 INP/OBS DISCH >30 MIN Diagnoses Lung mass R91.8 Aspiration into lower respiratory tract, sequela T17.800S Encounter type: sequela Aspiration pneumonia of right lower lobe, unspecified aspiration pneumonia type J69.0 Aspiration pneumonia type: unspecified Laterality: right Lung location: lower lobe of lung Pneumonia type: aspiration pneumonia Acute ischemic multifocal multiple vascular territories stroke I63.89 IHSAN (acute kidney injury) N17.9 GERD (gastroesophageal reflux disease) K21.9 HLD (hyperlipidemia) E78.5 BPH w urinary obs/LUTS N40.1; N13.8 Tremor of both hands R25.1 Tobacco abuse Z72.0
[2023-07-06] MEDS ORDERED: CITALOPRAM 20 MG TAB PO SCH (21:00)
[2023-07-06] MEDS ORDERED: TAMSULOSIN HCL 0.4 MG CAP PO SCH (21:00)
[2023-07-07] MEDS ORDERED: FUROSEMIDE INJ 20 MG/2 ML VIAL IV SCH (09:00)
== END 2023-07-06 10:59 | DRG 64 ==
LOC: ED 11:59 → EDINP 15:54 → SUATTDRO 15:54 → EDINP 18:53 → 2E 21:16